=== PATIENT | male | born 1945 | race Caucasian/White ===

== ENCOUNTER → 2021-10-24 08:55 | Outpatient (BNVA) | payer SELFPAY | PROVIDERS: PCP Family Medicine; Visit Provider Internal Medicine | DX: I48.0 Paroxysmal atrial fibrillation (principal); Z51.81 Encounter for therapeutic drug level monitoring; Z79.01 Long term (current) use of anticoagulants | CPT/HCPCS: 85610; 99202 ==

== ENCOUNTER → 2021-11-07 08:50 | Outpatient (BNVA) | payer MEDICARE, SELFPAY | PROVIDERS: PCP Family Medicine; Visit Provider Internal Medicine | DX: I48.19 Other persistent atrial fibrillation (principal); Z51.81 Encounter for therapeutic drug level monitoring; Z79.01 Long term (current) use of anticoagulants | CPT/HCPCS: 85610; 99211 ==

== ENCOUNTER → 2021-11-21 08:09 | Outpatient (BNVA) | payer MEDICARE, SELFPAY | PROVIDERS: PCP Family Medicine; Visit Provider Internal Medicine | DX: I48.19 Other persistent atrial fibrillation (principal); Z51.81 Encounter for therapeutic drug level monitoring; Z79.01 Long term (current) use of anticoagulants | CPT/HCPCS: 85610; 99211 ==

== ENCOUNTER → 2021-12-14 08:15 | Outpatient (BNVA) | payer MEDICARE, SELFPAY | PROVIDERS: PCP Family Medicine; Visit Provider Internal Medicine | DX: I48.19 Other persistent atrial fibrillation (principal); Z51.81 Encounter for therapeutic drug level monitoring; Z79.01 Long term (current) use of anticoagulants | CPT/HCPCS: 85610; 99211 ==

== ENCOUNTER → 2022-01-09 08:14 | Outpatient (BNVA) | payer MEDICARE, SELFPAY | PROVIDERS: PCP Family Medicine; Visit Provider Internal Medicine | DX: I48.19 Other persistent atrial fibrillation (principal); Z51.81 Encounter for therapeutic drug level monitoring; Z79.01 Long term (current) use of anticoagulants | CPT/HCPCS: 85610; 99211 ==

== ENCOUNTER → 2022-02-06 08:03 | Outpatient (BNVA) | payer MEDICARE, SELFPAY | PROVIDERS: PCP Family Medicine; Visit Provider Internal Medicine | DX: I48.0 Paroxysmal atrial fibrillation (principal); Z51.81 Encounter for therapeutic drug level monitoring; Z79.01 Long term (current) use of anticoagulants | CPT/HCPCS: 85610; 99211 ==

== ENCOUNTER → 2022-03-06 09:00 | Outpatient (BNVA) | payer MEDICARE, SELFPAY | PROVIDERS: PCP Family Medicine; Visit Provider Internal Medicine | DX: I48.0 Paroxysmal atrial fibrillation (principal); Z79.01 Long term (current) use of anticoagulants; Z51.81 Encounter for therapeutic drug level monitoring | CPT/HCPCS: 85610; 99211 ==

== ENCOUNTER → 2022-03-20 08:13 | Outpatient (BNVA) | payer MEDICARE, SELFPAY | PROVIDERS: PCP Family Medicine; Visit Provider Internal Medicine | DX: I48.0 Paroxysmal atrial fibrillation (principal); Z95.810 Presence of automatic (implantable) cardiac defibrillator; Z79.01 Long term (current) use of anticoagulants; Z51.81 Encounter for therapeutic drug level monitoring | CPT/HCPCS: 85610; 99211 ==

== ENCOUNTER → 2022-04-03 09:03 | Outpatient (BNVA) | payer MEDICARE, SELFPAY | PROVIDERS: PCP Family Medicine; Visit Provider Internal Medicine | DX: I48.0 Paroxysmal atrial fibrillation (principal); Z95.810 Presence of automatic (implantable) cardiac defibrillator; Z79.01 Long term (current) use of anticoagulants; Z51.81 Encounter for therapeutic drug level monitoring | CPT/HCPCS: 85610; 99211 ==

== ENCOUNTER → 2022-04-24 08:06 | Outpatient (BNVA) | payer MEDICARE, SELFPAY | PROVIDERS: PCP Family Medicine; Visit Provider Internal Medicine | DX: I48.0 Paroxysmal atrial fibrillation (principal); Z79.01 Long term (current) use of anticoagulants; Z51.81 Encounter for therapeutic drug level monitoring | CPT/HCPCS: 85610; 99211 ==

== ENCOUNTER → 2022-05-15 08:08 | Outpatient (BNVA) | payer MEDICARE, SELFPAY | PROVIDERS: PCP Family Medicine; Visit Provider Internal Medicine | DX: I48.0 Paroxysmal atrial fibrillation (principal); Z79.01 Long term (current) use of anticoagulants; Z51.81 Encounter for therapeutic drug level monitoring | CPT/HCPCS: 85610; 99211 ==

== ENCOUNTER → 2022-06-14 08:17 | Outpatient (BNVA) | payer MEDICARE, SELFPAY | PROVIDERS: PCP Family Medicine; Visit Provider Internal Medicine | DX: I48.0 Paroxysmal atrial fibrillation (principal); Z51.81 Encounter for therapeutic drug level monitoring; Z79.01 Long term (current) use of anticoagulants | CPT/HCPCS: 85610; 99211 ==

== ENCOUNTER → 2022-06-25 09:59 | Outpatient (BNVA) | payer MEDICARE, SELFPAY | PROVIDERS: PCP Family Medicine; Visit Provider Internal Medicine | DX: I48.0 Paroxysmal atrial fibrillation (principal); Z79.01 Long term (current) use of anticoagulants; Z51.81 Encounter for therapeutic drug level monitoring | CPT/HCPCS: 85610; 99211 ==

== ENCOUNTER → 2022-07-10 08:28 | Outpatient (BNVA) | payer MEDICARE, SELFPAY | PROVIDERS: PCP Family Medicine; Visit Provider Internal Medicine | DX: I48.20 Chronic atrial fibrillation, unspecified (principal); Z51.81 Encounter for therapeutic drug level monitoring; Z79.01 Long term (current) use of anticoagulants | CPT/HCPCS: 85610; 99211 ==

== ENCOUNTER → 2022-07-24 08:02 | Outpatient (BNVA) | payer MEDICARE, SELFPAY | PROVIDERS: PCP Family Medicine; Visit Provider Internal Medicine | DX: I48.0 Paroxysmal atrial fibrillation (principal); Z79.01 Long term (current) use of anticoagulants; Z51.81 Encounter for therapeutic drug level monitoring | CPT/HCPCS: 85610; 99211 ==

== ENCOUNTER → 2022-08-07 09:06 | Outpatient (BNVA) | payer MEDICARE, SELFPAY | PROVIDERS: PCP Family Medicine; Visit Provider Internal Medicine | DX: I48.0 Paroxysmal atrial fibrillation (principal); Z51.81 Encounter for therapeutic drug level monitoring; Z79.01 Long term (current) use of anticoagulants | CPT/HCPCS: 85610; 99211 ==

== ENCOUNTER → 2022-08-21 08:45 | Outpatient (BNVA) | payer MEDICARE, SELFPAY | PROVIDERS: PCP Family Medicine; Visit Provider Internal Medicine | DX: I48.0 Paroxysmal atrial fibrillation (principal); Z79.01 Long term (current) use of anticoagulants; Z51.81 Encounter for therapeutic drug level monitoring | CPT/HCPCS: 85610; 99211 ==

== ENCOUNTER → 2022-09-11 08:33 | Outpatient (BNVA) | payer MEDICARE, SELFPAY | PROVIDERS: PCP Family Medicine; Visit Provider Internal Medicine | DX: I48.0 Paroxysmal atrial fibrillation (principal); Z79.01 Long term (current) use of anticoagulants; Z51.81 Encounter for therapeutic drug level monitoring | CPT/HCPCS: 85610; 99211 ==

== ENCOUNTER → 2022-09-25 08:01 | Outpatient (BNVA) | payer MEDICARE, SELFPAY | PROVIDERS: PCP Family Medicine; Visit Provider Internal Medicine | DX: I48.91 Unspecified atrial fibrillation (principal); Z79.01 Long term (current) use of anticoagulants; Z51.81 Encounter for therapeutic drug level monitoring | CPT/HCPCS: 85610; 99211 ==

== ENCOUNTER → 2022-10-16 11:46 | Outpatient (BNVA) | payer MEDICARE, SELFPAY | PROVIDERS: PCP Family Medicine; Visit Provider Internal Medicine | DX: I48.91 Unspecified atrial fibrillation (principal); Z79.01 Long term (current) use of anticoagulants; Z51.81 Encounter for therapeutic drug level monitoring | CPT/HCPCS: 85610; 99211 ==

== ENCOUNTER → 2022-10-30 08:15 | Outpatient (BNVA) | payer MEDICARE, SELFPAY | PROVIDERS: PCP Family Medicine; Visit Provider Internal Medicine | DX: I48.91 Unspecified atrial fibrillation (principal); Z79.01 Long term (current) use of anticoagulants; Z51.81 Encounter for therapeutic drug level monitoring | CPT/HCPCS: 85610; 99211 ==

== ENCOUNTER → 2022-11-30 08:15 | Outpatient (BNVA) | payer MEDICARE, SELFPAY | PROVIDERS: PCP Family Medicine; Visit Provider Internal Medicine | DX: I48.91 Unspecified atrial fibrillation (principal); Z79.01 Long term (current) use of anticoagulants; Z51.81 Encounter for therapeutic drug level monitoring | CPT/HCPCS: 85610; 99211 ==

== ENCOUNTER → 2022-12-14 08:02 | Outpatient (BNVA) | payer MEDICARE, SELFPAY | PROVIDERS: PCP Family Medicine; Visit Provider Internal Medicine | DX: I48.91 Unspecified atrial fibrillation (principal); Z79.01 Long term (current) use of anticoagulants; Z51.81 Encounter for therapeutic drug level monitoring | CPT/HCPCS: 85610; 99211 ==

== ENCOUNTER → 2023-01-10 08:59 | Outpatient (BNVA) | payer MEDICARE, SELFPAY | PROVIDERS: PCP Family Medicine; Visit Provider Internal Medicine | DX: I48.91 Unspecified atrial fibrillation (principal); Z79.01 Long term (current) use of anticoagulants; Z51.81 Encounter for therapeutic drug level monitoring | CPT/HCPCS: 85610; 99211 ==

== ENCOUNTER → 2023-01-24 14:45 | Outpatient (BNVA) | payer MEDICARE, SELFPAY | PROVIDERS: PCP Family Medicine; Visit Provider Internal Medicine | DX: I48.91 Unspecified atrial fibrillation (principal); Z79.01 Long term (current) use of anticoagulants; Z51.81 Encounter for therapeutic drug level monitoring | CPT/HCPCS: 85610; 99211 ==

== ENCOUNTER → 2023-02-07 14:10 | Outpatient (BNVA) | payer MEDICARE, SELFPAY | PROVIDERS: PCP Family Medicine; Visit Provider Internal Medicine | DX: I48.91 Unspecified atrial fibrillation (principal); Z79.01 Long term (current) use of anticoagulants; Z51.81 Encounter for therapeutic drug level monitoring | CPT/HCPCS: 85610; 99211 ==

== ENCOUNTER → 2023-02-14 08:28 | Outpatient (BNVA) | payer MEDICARE, SELFPAY | PROVIDERS: PCP Family Medicine; Visit Provider Internal Medicine | DX: I48.91 Unspecified atrial fibrillation (principal); Z79.01 Long term (current) use of anticoagulants; Z51.81 Encounter for therapeutic drug level monitoring | CPT/HCPCS: 85610; 99211 ==

== ENCOUNTER → 2023-02-28 08:19 | Outpatient (BNVA) | payer MEDICARE, SELFPAY | PROVIDERS: PCP Family Medicine; Visit Provider Internal Medicine | DX: I48.91 Unspecified atrial fibrillation (principal); Z51.81 Encounter for therapeutic drug level monitoring; Z79.01 Long term (current) use of anticoagulants | CPT/HCPCS: 85610; 99211 ==

== ENCOUNTER → 2023-03-21 13:06 | Outpatient (BNVA) | payer MEDICARE, SELFPAY | PROVIDERS: PCP Family Medicine; Visit Provider Internal Medicine | DX: I48.91 Unspecified atrial fibrillation (principal); Z79.01 Long term (current) use of anticoagulants; Z51.81 Encounter for therapeutic drug level monitoring | CPT/HCPCS: 85610; 99211 ==

== ENCOUNTER → 2023-04-04 08:08 | Outpatient (BNVA) | payer MEDICARE, SELFPAY | PROVIDERS: PCP Family Medicine; Visit Provider Internal Medicine | DX: I48.91 Unspecified atrial fibrillation (principal); Z79.01 Long term (current) use of anticoagulants; Z51.81 Encounter for therapeutic drug level monitoring | CPT/HCPCS: 85610; 99211 ==

== ENCOUNTER → 2023-04-25 13:06 | Outpatient (BNVA) | payer MEDICARE, SELFPAY | PROVIDERS: PCP Family Medicine; Visit Provider Internal Medicine | DX: I48.91 Unspecified atrial fibrillation (principal); Z79.01 Long term (current) use of anticoagulants; Z51.81 Encounter for therapeutic drug level monitoring | CPT/HCPCS: 85610; 99211 ==

== ENCOUNTER → 2023-05-17 08:17 | Outpatient (BNVA) | payer MEDICARE, SELFPAY | PROVIDERS: PCP Family Medicine; Visit Provider Internal Medicine | DX: I48.91 Unspecified atrial fibrillation (principal); Z79.01 Long term (current) use of anticoagulants; Z51.81 Encounter for therapeutic drug level monitoring | CPT/HCPCS: 85610; 99211 ==

== ENCOUNTER 2023-06-11 13:32 | Outpatient (AMB) | payer MEDICARE, SELFPAY ==
[2023-06-11 13:44] LABS: Prothrombin Time Whole Bld POC 36.2 sec (11.1-13.5)
--- NOTE | 2023-06-11 13:49 | MHC.OFFVISCO ---
Intake Intake Visit Reasons: Anticoagulation Allergies diltiazem [From Cardizem] Allergy (Intermediate, Verified 06/11/23 13:38) rash Medication List - Last Reconciled 06/11/23 by Maddison Summers RN aspirin 81 mg PO DAILY atorvastatin 80 mg PO DAILY carvedilol 25MG 2 TABS PO 2 times a day; must administer with a meal/food cholecalciferol (vitamin D3) 50 mcg PO DAILY multivitamin 1 tab PO DAILY [OCUVITE PO DAILY] oxycodone 5 mg PO Q4H PRN warfarin 5 mg See Protocol PO DAILY Nursing Note Amb to [facility] feeling well, missed appt last Saturday as he was traveling from [place] home, reminded regarding no call no show policy and to please call us if needs to R/S visit Medications and supplements reviewed No changes in health, diet, medications, or supplements Denies any unusual signs and symptoms of bruising, bleeding Denies any new Chest pain, SOB, or clotting INR: 3.0 top of therapeutic range Nutritional guidance given: balance greens and reds in diet Dose: continue usual dosing;5mg daily F/U INR: 4 weeks Patient verbalizes understanding of instructions given with accurate read back/ teach back of dosing Anti-Coag Initial Assessment Social Hx Patient Tobacco Use Status: Former Tobacco user Tobacco use type: Cigar and Pipe alcohol intake: former Alcohol intake frequency: does not drink Cardiovascular Hx: CAD and Arrhythmias Musculoskeletal Hx: Arthritis Blood Disorder Hx: Hyperlipidemia GI Hx: Diverticulosis Cancer HX: No Psych. Illness/Depression: No Coding Level of Care Code Est Patient Level 1 Diagnoses Current use of anticoagulant therapy Z79.01 Time Spent (min) 15 Assessment & Plan Assessment & Plan (1) Current use of anticoagulant therapy: Code(s): Z79.01 - residential (current) use of anticoagulants Category: Medical
== END 2023-06-11 13:52 | disposition home or self-care (01) ==
LOC: HO.ACS 13:32
PROVIDERS: PCP Family Medicine; Visit Provider Internal Medicine
DX: Z79.01 Long term (current) use of anticoagulants (principal)

== ENCOUNTER → 2023-06-11 13:32 | Outpatient (BNVA) | payer MEDICARE, SELFPAY | PROVIDERS: PCP Family Medicine; Visit Provider Internal Medicine | DX: I48.91 Unspecified atrial fibrillation (principal); Z51.81 Encounter for therapeutic drug level monitoring; Z79.01 Long term (current) use of anticoagulants | CPT/HCPCS: 85610; 99211 ==

== ENCOUNTER 2023-07-09 08:01 | Outpatient (AMB) | payer MEDICARE, SELFPAY ==
[2023-07-09 08:07] LABS: ~PT, ~INR - Anti Coag Clinic 3.5 (0.9-1.1)
--- NOTE | 2023-07-09 08:14 | MHC.OFFVISCO ---
Intake Intake Visit Reasons: Anticoagulation Allergies diltiazem [From Cardizem] Allergy (Intermediate, Verified 07/09/23 08:02) rash Medication List - Last Reconciled 07/09/23 by Farida Ramirez RN aspirin 81 mg PO DAILY atorvastatin 80 mg PO DAILY carvedilol 25MG 2 TABS PO 2 times a day; must administer with a meal/food cholecalciferol (vitamin D3) 50 mcg PO DAILY multivitamin 1 tab PO DAILY [OCUVITE PO DAILY] oxycodone 5 mg PO Q4H PRN warfarin 5 mg See Protocol PO DAILY Nursing Note NO CP,SOB,DIET/MED CHANGES,FALLS OR SX OF BLEEDING. HOLD WARFARIN TODAY THEN RESUME 5MGM DAILY AND FOLLOW-UP IN WEEKS. GOOD UNDERSTANDING OF DOSING INSTR Anti-Coag Initial Assessment Social Hx Patient Tobacco Use Status: Former Tobacco user Tobacco use type: Cigar and Pipe alcohol intake: former Alcohol intake frequency: does not drink Cardiovascular Hx: CAD and Arrhythmias Musculoskeletal Hx: Arthritis Blood Disorder Hx: Hyperlipidemia GI Hx: Diverticulosis Cancer HX: No Psych. Illness/Depression: No Coding Level of Care Code Est Patient Level 1 Diagnoses Current use of anticoagulant therapy Z79.01 Assessment & Plan Assessment & Plan (1) Current use of anticoagulant therapy: Code(s): Z79.01 - retirement (current) use of anticoagulants Category: Medical
== END 2023-07-09 08:16 | disposition home or self-care (01) ==
LOC: HO.ACS 08:01
PROVIDERS: PCP Family Medicine; Visit Provider Internal Medicine
DX: Z79.01 Long term (current) use of anticoagulants (principal)

== ENCOUNTER → 2023-07-09 08:01 | Outpatient (BNVA) | payer MEDICARE, SELFPAY | PROVIDERS: PCP Family Medicine; Visit Provider Internal Medicine | DX: I48.91 Unspecified atrial fibrillation (principal); Z79.01 Long term (current) use of anticoagulants; Z51.81 Encounter for therapeutic drug level monitoring | CPT/HCPCS: 85610; 99211 ==

== ENCOUNTER 2023-07-23 08:30 | Outpatient (AMB) | payer MEDICARE, SELFPAY ==
--- NOTE | 2023-07-23 08:40 | MHC.OFFVISCO ---
Intake Intake Visit Reasons: Anticoagulation Allergies diltiazem [From Cardizem] Allergy (Intermediate, Verified 07/23/23 08:36) rash Medication List - Last Reconciled 07/23/23 by Aleta Weber RN aspirin 81 mg PO DAILY atorvastatin 80 mg PO DAILY carvedilol 25MG 2 TABS PO 2 times a day; must administer with a meal/food cholecalciferol (vitamin D3) 50 mcg PO DAILY multivitamin 1 tab PO DAILY [OCUVITE PO DAILY] oxycodone 5 mg PO Q4H PRN warfarin 5 mg See Protocol PO DAILY Nursing Note INR: 2.5- in therapeutic range Medications and supplements reviewed No changes in health, diet, medications, or supplements, Denies any signs and symptoms of bleeding or bruising or clotting. Bleeding, bruising, clotting discussed Nutritional guidance given Dose: 5mg x 7 F/U INR: 2 weeks Patient verbalizes understanding of instructions given Anti-Coag Initial Assessment Social Hx Patient Tobacco Use Status: Former Tobacco user Tobacco use type: Cigar and Pipe alcohol intake: former Alcohol intake frequency: does not drink Cardiovascular Hx: CAD and Arrhythmias Musculoskeletal Hx: Arthritis Blood Disorder Hx: Hyperlipidemia GI Hx: Diverticulosis Cancer HX: No Psych. 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
[2023-07-23 08:42] LABS: Prothrombin Time Whole Bld POC 29.7 sec (11.1-13.5); ~PT, ~INR - Anti Coag Clinic 2.5 (0.9-1.1)
== END 2023-07-23 08:53 | disposition home or self-care (01) ==
LOC: HO.ACS 08:30
PROVIDERS: PCP Family Medicine; Visit Provider Internal Medicine
DX: Z79.01 Long term (current) use of anticoagulants (principal)

== ENCOUNTER → 2023-07-23 08:30 | Outpatient (BNVA) | payer MEDICARE, SELFPAY | PROVIDERS: PCP Family Medicine; Visit Provider Internal Medicine | DX: I48.91 Unspecified atrial fibrillation (principal); Z79.01 Long term (current) use of anticoagulants; Z51.81 Encounter for therapeutic drug level monitoring | CPT/HCPCS: 85610; 99211 ==

== ENCOUNTER 2023-08-06 09:10 | Outpatient (AMB) | payer MEDICARE, SELFPAY ==
--- NOTE | 2023-08-06 09:25 | MHC.OFFVISCO ---
Intake Intake Visit Reasons: Anticoagulation Allergies diltiazem [From Cardizem] Allergy (Intermediate, Verified 08/06/23 09:18) rash Medication List - Last Reconciled 08/06/23 by Aleta Weber RN aspirin 81 mg PO DAILY atorvastatin 80 mg PO DAILY carvedilol 25MG 2 TABS PO 2 times a day; must administer with a meal/food cholecalciferol (vitamin D3) 50 mcg PO DAILY multivitamin 1 tab PO DAILY [OCUVITE PO DAILY] oxycodone 5 mg PO Q4H PRN warfarin 5 mg See Protocol PO DAILY Nursing Note INR 3.6-? out of therapeutic range Medications and supplements reviewed Patient status: pt with small cut on finger, small amount of bleeding, cleaned and band aid applied Medications or supplements: no changes Diet: has had more reds Denies any signs and symptoms of bleeding or clotting or unusual bruising Bleeding, bruising, clotting discussed Nutritional guidance given: eat dark greens today and tomm, no reds for 2 days Dose: 2.5mg today then cont reg dosing 5mg x 7 F/U INR Date : 2 weeks? Patient verbalizing understanding of instructions given. Anti-Coag Initial Assessment Social Hx Patient Tobacco Use Status: Former Tobacco user Tobacco use type: Cigar and Pipe alcohol intake: former Alcohol intake frequency: does not drink Cardiovascular Hx: CAD and Arrhythmias Musculoskeletal Hx: Arthritis Blood Disorder Hx: Hyperlipidemia GI Hx: Diverticulosis Cancer HX: No Psych. 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
[2023-08-06 09:27] LABS: Prothrombin Time Whole Bld POC 42.9 sec (11.1-13.5); ~PT, ~INR - Anti Coag Clinic 3.6 (0.9-1.1)
== END 2023-08-06 09:30 | disposition home or self-care (01) ==
LOC: HO.ACS 09:10
PROVIDERS: PCP Family Medicine; Visit Provider Internal Medicine
DX: Z79.01 Long term (current) use of anticoagulants (principal)

== ENCOUNTER → 2023-08-06 09:10 | Outpatient (BNVA) | payer MEDICARE, SELFPAY | PROVIDERS: PCP Family Medicine; Visit Provider Internal Medicine | DX: I48.91 Unspecified atrial fibrillation (principal); Z79.01 Long term (current) use of anticoagulants; Z51.81 Encounter for therapeutic drug level monitoring | CPT/HCPCS: 85610; 99211 ==

== ENCOUNTER 2023-08-20 13:03 | Outpatient (AMB) | payer MEDICARE, SELFPAY ==
--- NOTE | 2023-08-20 13:25 | MHC.OFFVISCO ---
Intake Intake Visit Reasons: Anticoagulation Allergies diltiazem [From Cardizem] Allergy (Intermediate, Verified 08/20/23 13:22) rash Medication List - Last Reconciled 08/20/23 by Aleta Weber RN aspirin 81 mg PO DAILY atorvastatin 80 mg PO DAILY carvedilol 25MG 2 TABS PO 2 times a day; must administer with a meal/food cholecalciferol (vitamin D3) 50 mcg PO DAILY multivitamin 1 tab PO DAILY [OCUVITE PO DAILY] oxycodone 5 mg PO Q4H PRN warfarin 5 mg See Protocol PO DAILY Nursing Note INR: 2.9- in therapeutic range Medications and supplements reviewed- no changes No changes in health, diet, medications, or supplements, Denies any signs and symptoms of bleeding or bruising or clotting. Bleeding, bruising, clotting discussed Nutritional guidance given Dose: 5mg x 7 F/U INR: 2 weeks Patient verbalizes understanding of instructions given Anti-Coag Initial Assessment Social Hx Patient Tobacco Use Status: Former Tobacco user Tobacco use type: Cigar and Pipe alcohol intake: former Alcohol intake frequency: does not drink Cardiovascular Hx: CAD and Arrhythmias Musculoskeletal Hx: Arthritis Blood Disorder Hx: Hyperlipidemia GI Hx: Diverticulosis Cancer HX: No Psych. 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
[2023-08-20 13:26] LABS: Prothrombin Time Whole Bld POC 34.9 sec (11.1-13.5); ~PT, ~INR - Anti Coag Clinic 2.9 (0.9-1.1)
== END 2023-08-20 13:29 | disposition home or self-care (01) ==
LOC: HO.ACS 13:03
PROVIDERS: PCP Family Medicine; Visit Provider Internal Medicine
DX: Z79.01 Long term (current) use of anticoagulants (principal)

== ENCOUNTER → 2023-08-20 13:03 | Outpatient (BNVA) | payer MEDICARE, SELFPAY | PROVIDERS: PCP Family Medicine; Visit Provider Internal Medicine | DX: I48.91 Unspecified atrial fibrillation (principal); Z51.81 Encounter for therapeutic drug level monitoring; Z79.01 Long term (current) use of anticoagulants | CPT/HCPCS: 85610; 99211 ==

== ENCOUNTER 2023-09-03 09:02 | Outpatient (AMB) | payer MEDICARE, SELFPAY ==
[2023-09-03 09:15] LABS: Prothrombin Time Whole Bld POC 27.9 sec (11.1-13.5); ~PT, ~INR - Anti Coag Clinic 2.3 (0.9-1.1)
--- NOTE | 2023-09-03 09:18 | MHC.OFFVISCO ---
Intake Intake Visit Reasons: Anticoagulation Allergies diltiazem [From Cardizem] Allergy (Intermediate, Verified 09/03/23 09:09) rash Medication List - Last Reconciled 09/03/23 by Lor Florence RN aspirin 81 mg PO DAILY atorvastatin 80 mg PO DAILY carvedilol 25MG 2 TABS PO 2 times a day; must administer with a meal/food cholecalciferol (vitamin D3) 50 mcg PO DAILY metronidazole 0.75% appl topical DAILY multivitamin 1 tab PO DAILY [OCUVITE PO DAILY] oxycodone 5 mg PO Q4H PRN peg 3350-electrolytes 236-22.74-6.74 -5.86 gram (GaviLyte-G) mL PO warfarin 5 mg See Protocol PO DAILY Nursing Note INR: 2.3 in therapeutic range Medications and supplements reviewed Had 3 vaccines Flu RSV and covid No changes in health, diet, medications, or supplements, Denies any signs and symptoms of bleeding or bruising or clotting. Bleeding, bruising, clotting discussed Nutritional guidance given Dose: 5mg daily F/U INR: Sep 26 after traveling Patient verbalizes understanding of instructions given Anti-Coag Initial Assessment Social Hx Patient Tobacco Use Status: Former Tobacco user Tobacco use type: Cigar and Pipe alcohol intake: former Alcohol intake frequency: does not drink Cardiovascular Hx: CAD and Arrhythmias Musculoskeletal Hx: Arthritis Blood Disorder Hx: Hyperlipidemia GI Hx: Diverticulosis Cancer HX: No Psych. Illness/Depression: No Coding Level of Care Code Est Patient Level 1 Diagnoses Current use of anticoagulant therapy Z79.01 Assessment & Plan Assessment & Plan (1) Current use of anticoagulant therapy: Code(s): Z79.01 - residential (current) use of anticoagulants Category: Medical
== END 2023-09-03 09:23 | disposition home or self-care (01) ==
LOC: HO.ACS 09:02
PROVIDERS: PCP Family Medicine; Visit Provider Internal Medicine
DX: Z79.01 Long term (current) use of anticoagulants (principal)

== ENCOUNTER → 2023-09-03 09:02 | Outpatient (BNVA) | payer MEDICARE, SELFPAY | PROVIDERS: PCP Family Medicine; Visit Provider Internal Medicine | DX: I48.91 Unspecified atrial fibrillation (principal); Z79.01 Long term (current) use of anticoagulants; Z51.81 Encounter for therapeutic drug level monitoring | CPT/HCPCS: 85610; 99211 ==

== ENCOUNTER 2023-09-27 13:55 | Outpatient (AMB) | payer MEDICARE, SELFPAY ==
--- NOTE | 2023-09-27 14:02 | MHC.OFFVISCO ---
Intake Intake Visit Reasons: Anticoagulation Allergies diltiazem [From Cardizem] Allergy (Intermediate, Verified 09/27/23 13:57) rash Medication List - Last Reconciled 09/27/23 by Aleta Weber RN aspirin 81 mg PO DAILY atorvastatin 80 mg PO DAILY carvedilol 25MG 2 TABS PO 2 times a day; must administer with a meal/food cholecalciferol (vitamin D3) 50 mcg PO DAILY metronidazole 0.75% appl topical DAILY multivitamin 1 tab PO DAILY [OCUVITE PO DAILY] oxycodone 5 mg PO Q4H PRN peg 3350-electrolytes 236-22.74-6.74 -5.86 gram (GaviLyte-G) mL PO warfarin 5 mg See Protocol PO DAILY Nursing Note INR: 2.6- in therapeutic range of 2-3 Medications and supplements reviewed- no changes No changes in health, diet, medications, or supplements, Denies any signs and symptoms of bleeding or bruising or clotting. Bleeding, bruising, clotting discussed Nutritional guidance given Dose: 5mg x 7 F/U INR: pt req 3 week Patient verbalizes understanding of instructions given [facility] Anti-Coag Initial Assessment Social Hx Patient Tobacco Use Status: Former Tobacco user Tobacco use type: Cigar and Pipe alcohol intake: former Alcohol intake frequency: does not drink Cardiovascular Hx: CAD and Arrhythmias Musculoskeletal Hx: Arthritis Blood Disorder Hx: Hyperlipidemia GI Hx: Diverticulosis Cancer HX: No Psych. 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
[2023-09-27 14:03] LABS: Prothrombin Time Whole Bld POC 31.5 sec (11.1-13.5); ~PT, ~INR - Anti Coag Clinic 2.6 (0.9-1.1)
== END 2023-09-27 14:08 | disposition home or self-care (01) ==
LOC: HO.ACS 13:55
PROVIDERS: PCP Family Medicine; Visit Provider Internal Medicine
DX: Z79.01 Long term (current) use of anticoagulants (principal)

== ENCOUNTER → 2023-09-27 13:55 | Outpatient (BNVA) | payer MEDICARE, SELFPAY | PROVIDERS: PCP Family Medicine; Visit Provider Internal Medicine | DX: I48.0 Paroxysmal atrial fibrillation (principal); Z79.01 Long term (current) use of anticoagulants; Z51.81 Encounter for therapeutic drug level monitoring | CPT/HCPCS: 85610; 99211 ==

== ENCOUNTER 2023-10-28 13:22 | Outpatient (AMB) | payer MEDICARE, SELFPAY ==
--- NOTE | 2023-10-28 13:27 | MHC.OFFVISCO ---
Intake Intake Visit Reasons: Anticoagulation Allergies diltiazem [From Cardizem] Allergy (Intermediate, Verified 10/28/23 13:24) rash Medication List - Last Reconciled 10/28/23 by Aleta Weber RN aspirin 81 mg PO DAILY atorvastatin 80 mg PO DAILY carvedilol 25MG 2 TABS PO 2 times a day; must administer with a meal/food cholecalciferol (vitamin D3) 50 mcg PO DAILY metronidazole 0.75% appl topical DAILY multivitamin 1 tab PO DAILY [OCUVITE PO DAILY] oxycodone 5 mg PO Q4H PRN peg 3350-electrolytes 236-22.74-6.74 -5.86 gram (GaviLyte-G) mL PO warfarin 5 mg See Protocol PO DAILY Nursing Note INR: 2.4- in therapeutic range of 2-3 Medications and supplements reviewed No changes in health, diet, medications, or supplements, Denies any signs and symptoms of bleeding or bruising or clotting. Bleeding, bruising, clotting discussed Nutritional guidance given Dose: 5mg x 7 F/U INR: 3 weeks Patient verbalizes understanding of instructions given pt with c.o back pain, does exercises and takes tylenol prn Anti-Coag Initial Assessment Social Hx Patient Tobacco Use Status: Former Tobacco user Tobacco use type: Cigar and Pipe alcohol intake: former Alcohol intake frequency: does not drink Cardiovascular Hx: CAD and Arrhythmias Musculoskeletal Hx: Arthritis Blood Disorder Hx: Hyperlipidemia GI Hx: Diverticulosis Cancer HX: No Psych. 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
[2023-10-28 13:28] LABS: ~PT, ~INR - Anti Coag Clinic 2.4 (0.9-1.1)
== END 2023-10-28 13:32 | disposition home or self-care (01) ==
LOC: HO.ACS 13:22
PROVIDERS: PCP Family Medicine; Visit Provider Internal Medicine
DX: Z79.01 Long term (current) use of anticoagulants (principal)

== ENCOUNTER → 2023-10-28 13:22 | Outpatient (BNVA) | payer MEDICARE, SELFPAY | PROVIDERS: PCP Family Medicine; Visit Provider Internal Medicine | DX: I48.0 Paroxysmal atrial fibrillation (principal); Z79.01 Long term (current) use of anticoagulants; Z51.81 Encounter for therapeutic drug level monitoring | CPT/HCPCS: 85610; 99211 ==

== ENCOUNTER 2023-11-19 13:07 | Outpatient (AMB) | payer MEDICARE, SELFPAY ==
--- NOTE | 2023-11-19 13:30 | MHC.OFFVISCO ---
Intake Intake Visit Reasons: Anticoagulation Allergies diltiazem [From Cardizem] Allergy (Intermediate, Verified 11/19/23 13:23) rash Medication List - Last Reconciled 11/19/23 by Aleta Weber RN aspirin 81 mg PO DAILY atorvastatin 80 mg PO DAILY carvedilol 25MG 2 TABS PO 2 times a day; must administer with a meal/food cholecalciferol (vitamin D3) 50 mcg PO DAILY metronidazole 0.75% appl topical DAILY multivitamin 1 tab PO DAILY [OCUVITE PO DAILY] oxycodone 5 mg PO Q4H PRN peg 3350-electrolytes 236-22.74-6.74 -5.86 gram (GaviLyte-G) mL PO warfarin 5 mg See Protocol PO DAILY Nursing Note INR: 2.3- in therapeutic range of 2-3 Medications and supplements reviewed- no changes No changes in health, diet, medications, or supplements, Denies any signs and symptoms of bleeding or bruising or clotting. Bleeding, bruising, clotting discussed Nutritional guidance given Dose: 5mg x 7 F/U INR: 3 weeks Patient verbalizes understanding of instructions given pt states upcoming colonoscopy on 12/16/23- will check with pcp or cardiology regarding warfarin hold, ? lovenox Anti-Coag Initial Assessment Social Hx Patient Tobacco Use Status: Former Tobacco user Tobacco use type: Cigar and Pipe alcohol intake: former Alcohol intake frequency: does not drink Cardiovascular Hx: CAD and Arrhythmias Musculoskeletal Hx: Arthritis Blood Disorder Hx: Hyperlipidemia GI Hx: Diverticulosis Cancer HX: No Psych. Illness/Depression: No Coding Level of Care Code Est Patient Level 1 Diagnoses Current use of anticoagulant therapy Z79.01 Results AMB INR Fingerstick AMB INR Fingerstick 2.3 Last Edit by Aleta Weber RN on 11/19/23 13:32 Assessment & Plan Assessment & Plan (1) Current use of anticoagulant therapy: Code(s): Z79.01 - retirement (current) use of anticoagulants Category: Medical
[2023-11-19 13:31] LABS: Prothrombin Time Whole Bld POC 27.6 sec (11.1-13.5); ~PT, ~INR - Anti Coag Clinic 2.3 (0.9-1.1)
== END 2023-11-19 14:08 | disposition home or self-care (01) ==
LOC: HO.ACS 13:07
PROVIDERS: PCP Family Medicine; Visit Provider Internal Medicine
DX: Z79.01 Long term (current) use of anticoagulants (principal)

== ENCOUNTER → 2023-11-19 13:07 | Outpatient (BNVA) | payer MEDICARE, SELFPAY | PROVIDERS: PCP Family Medicine; Visit Provider Internal Medicine | DX: I48.0 Paroxysmal atrial fibrillation (principal); Z51.81 Encounter for therapeutic drug level monitoring; Z79.01 Long term (current) use of anticoagulants | CPT/HCPCS: 85610; 99211 ==

== ENCOUNTER 2023-12-09 13:13 | Outpatient (AMB) | payer MEDICARE, SELFPAY ==
[2023-12-09 13:34] LABS: Prothrombin Time Whole Bld POC 32.6 sec (11.1-13.5); ~PT, ~INR - Anti Coag Clinic 2.7 (0.9-1.1)
--- NOTE | 2023-12-09 13:35 | MHC.OFFVISCO ---
Intake Intake Visit Reasons: Anticoagulation Allergies diltiazem [From Cardizem] Allergy (Intermediate, Verified 12/09/23 13:44) rash Nursing Note INR: 2.7- in therapeutic range of 2-3 Medications and supplements reviewed- no changes No changes in health, diet, medications, or supplements, Denies any signs and symptoms of bleeding or bruising or clotting. Bleeding, bruising, clotting discussed Nutritional guidance given Dose: 5mg daily F/U INR: saturday12/20/23 Patient verbalizes understanding of instructions given pt to have colonoscopy on 12/16/23- no instruction for hold or lovenox yet, pt attempted to contact cardiology at [facility] but they deferred to acs. pcp office called-aware of need for pre proc orders- will let acs know of days of hold for warfarin and if lovenox ordered. colonoscopy in [facility] Initial Assessment Social Hx Patient Tobacco Use Status: Former Tobacco user Tobacco use type: Cigar and Pipe alcohol intake: former Alcohol intake frequency: does not drink Cardiovascular Hx: CAD and Arrhythmias Musculoskeletal Hx: Arthritis Blood Disorder Hx: Hyperlipidemia GI Hx: Diverticulosis Cancer HX: No Psych. 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
== END 2023-12-09 13:45 | disposition home or self-care (01) ==
LOC: HO.ACS 13:13
PROVIDERS: PCP Family Medicine; Visit Provider Internal Medicine
DX: Z79.01 Long term (current) use of anticoagulants (principal)

== ENCOUNTER → 2023-12-09 13:13 | Outpatient (BNVA) | payer MEDICARE, SELFPAY | PROVIDERS: PCP Family Medicine; Visit Provider Internal Medicine | DX: I48.0 Paroxysmal atrial fibrillation (principal); Z79.01 Long term (current) use of anticoagulants; Z51.81 Encounter for therapeutic drug level monitoring | CPT/HCPCS: 85610; 99211 ==

== ENCOUNTER 2023-12-20 14:38 | Outpatient (AMB) | payer MEDICARE, SELFPAY ==
--- NOTE | 2023-12-20 14:42 | MHC.OFFVISCO ---
Intake Intake Visit Reasons: Anticoagulation Allergies diltiazem [From Cardizem] Allergy (Intermediate, Verified 12/20/23 14:39) rash Medication List - Last Reconciled 12/20/23 by Aleta Weber RN aspirin 81 mg PO DAILY atorvastatin 80 mg PO DAILY carvedilol 25MG 2 TABS PO 2 times a day; must administer with a meal/food cholecalciferol (vitamin D3) 50 mcg PO DAILY metronidazole 0.75% appl topical DAILY multivitamin 1 tab PO DAILY [OCUVITE PO DAILY] oxycodone 5 mg PO Q4H PRN warfarin 5 mg See Protocol PO DAILY Nursing Note INR 1.4-?? out of therapeutic range Medications and supplements reviewed Patient status: pt s/p colonoscopy on saturday12/16/23- one polyp five day hold of warfarin with no lovenox bridge Medications or supplements: no changes Diet: same Denies any signs and symptoms of bleeding or clotting or unusual bruising Bleeding, bruising, clotting discussed Nutritional guidance given: no greens for 2-3 days, eat reds to raise Dose: pt restarted warfarin on 12/17/23 and took 7.5mg on , then 5mg daily pt to take 7.5mg today and tomm then cont reg 5mg x 7 F/U INR Date : 12/24/23? Patient verbalizing understanding of instructions given. pcp office called- dr english to report low inr/dosing and f/u appt- spoke with Johana butt aware pt s/p colonoscopy with 5 day hold- will report to medical staff/pcp Anti-Coag Initial Assessment Social Hx Patient Tobacco Use Status: Former Tobacco user Tobacco use type: Cigar and Pipe alcohol intake: former Alcohol intake frequency: does not drink Cardiovascular Hx: CAD and Arrhythmias Musculoskeletal Hx: Arthritis Blood Disorder Hx: Hyperlipidemia GI Hx: Diverticulosis Cancer HX: No Psych. 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
[2023-12-20 14:44] LABS: Prothrombin Time Whole Bld POC 16.3 sec (11.1-13.5); ~PT, ~INR - Anti Coag Clinic 1.4 (0.9-1.1)
== END 2023-12-20 15:00 | disposition home or self-care (01) ==
LOC: HO.ACS 14:38
PROVIDERS: PCP Family Medicine; Visit Provider Internal Medicine
DX: Z79.01 Long term (current) use of anticoagulants (principal)

== ENCOUNTER → 2023-12-20 14:38 | Outpatient (BNVA) | payer MEDICARE, SELFPAY | PROVIDERS: PCP Family Medicine; Visit Provider Internal Medicine | DX: I48.0 Paroxysmal atrial fibrillation (principal); Z79.01 Long term (current) use of anticoagulants; Z51.81 Encounter for therapeutic drug level monitoring | CPT/HCPCS: 85610; 99211 ==

== ENCOUNTER 2023-12-24 13:54 | Outpatient (AMB) | payer MEDICARE, SELFPAY ==
[2023-12-24 14:02] LABS: Prothrombin Time Whole Bld POC 28.2 sec (11.1-13.5); ~PT, ~INR - Anti Coag Clinic 2.3 (0.9-1.1)
--- NOTE | 2023-12-24 14:04 | MHC.OFFVISCO ---
Intake Intake Visit Reasons: Anticoagulation Allergies diltiazem [From Cardizem] Allergy (Intermediate, Verified 12/24/23 13:56) rash Medication List - Last Reconciled 12/24/23 by Maddison Hernandez, CONCE[employer] aspirin 81 mg PO DAILY atorvastatin 80 mg PO DAILY carvedilol 25MG 2 TABS PO 2 times a day; must administer with a meal/food cholecalciferol (vitamin D3) 50 mcg PO DAILY metronidazole 0.75% appl topical DAILY multivitamin 1 tab PO DAILY [OCUVITE PO DAILY] warfarin 5 mg See Protocol PO DAILY Nursing Note S/P colonoscopy 12/16 INR: 2.3 in therapeutic range of 2-3 Medications and supplements reviewed No changes in health, diet, medications, or supplements, Denies any signs and symptoms of bleeding or bruising or clotting. Bleeding, bruising, clotting discussed Nutritional guidance given Dose: resume usual dose of 5mg daily F/U INR: 2 weeks Patient verbalizes understanding of instructions given Anti-Coag Initial Assessment Social Hx Patient Tobacco Use Status: Former Tobacco user Tobacco use type: Cigar and Pipe alcohol intake: former Alcohol intake frequency: does not drink Cardiovascular Hx: CAD and Arrhythmias Musculoskeletal Hx: Arthritis Blood Disorder Hx: Hyperlipidemia GI Hx: Diverticulosis Cancer HX: No Psych. Illness/Depression: No Coding Level of Care Code Est Patient Level 1 Diagnoses Current use of anticoagulant therapy Z79.01 Assessment & Plan Assessment & Plan (1) Current use of anticoagulant therapy: Code(s): Z79.01 - residential (current) use of anticoagulants Category: Medical
== END 2023-12-24 14:09 | disposition home or self-care (01) ==
LOC: HO.ACS 13:54
PROVIDERS: PCP Family Medicine; Visit Provider Internal Medicine
DX: Z79.01 Long term (current) use of anticoagulants (principal)

== ENCOUNTER → 2023-12-24 13:54 | Outpatient (BNVA) | payer MEDICARE, SELFPAY | PROVIDERS: PCP Family Medicine; Visit Provider Internal Medicine | DX: I48.0 Paroxysmal atrial fibrillation (principal); Z79.01 Long term (current) use of anticoagulants; Z51.81 Encounter for therapeutic drug level monitoring | CPT/HCPCS: 85610; 99211 ==

== ENCOUNTER 2024-01-07 13:46 | Outpatient (AMB) | payer MEDICARE, SELFPAY ==
--- NOTE | 2024-01-07 14:09 | MHC.OFFVISCO ---
Intake Intake Visit Reasons: Anticoagulation Allergies diltiazem [From Cardizem] Allergy (Intermediate, Verified 01/07/24 14:02) rash Medication List - Last Reconciled 01/07/24 by Aleta Weber RN aspirin 81 mg PO DAILY atorvastatin 80 mg PO DAILY carvedilol 25MG 2 TABS PO 2 times a day; must administer with a meal/food cholecalciferol (vitamin D3) 50 mcg PO DAILY metronidazole 0.75% appl topical DAILY multivitamin 1 tab PO DAILY [OCUVITE PO DAILY] warfarin 5 mg See Protocol PO DAILY Nursing Note INR: 2.9- in therapeutic range of 2-3 Medications and supplements reviewed- no changes No changes in health, diet, medications, or supplements, Denies any signs and symptoms of bleeding or bruising or clotting. Bleeding, bruising, clotting discussed Nutritional guidance given Dose: 5mg x 7 F/U INR: 3 weeks Patient verbalizes understanding of instructions given Anti-Coag Initial Assessment Social Hx Patient Tobacco Use Status: Former Tobacco user Tobacco use type: Cigar and Pipe alcohol intake: former Alcohol intake frequency: does not drink Cardiovascular Hx: CAD and Arrhythmias Musculoskeletal Hx: Arthritis Blood Disorder Hx: Hyperlipidemia GI Hx: Diverticulosis Cancer HX: No Psych. Illness/Depression: No Coding Level of Care Code Est Patient Level 1 Diagnoses Current use of anticoagulant therapy Z79.01 Results AMB INR Fingerstick AMB INR Fingerstick 2.9 Last Edit by Aleta Weber RN on 01/07/24 14:11 Assessment & Plan Assessment & Plan (1) Current use of anticoagulant therapy: Code(s): Z79.01 - retirement (current) use of anticoagulants Category: Medical
[2024-01-07 14:10] LABS: Prothrombin Time Whole Bld POC 34.2 sec (11.1-13.5); ~PT, ~INR - Anti Coag Clinic 2.9 (0.9-1.1)
== END 2024-01-07 14:19 | disposition home or self-care (01) ==
LOC: HO.ACS 13:46
PROVIDERS: PCP Family Medicine; Visit Provider Internal Medicine
DX: Z79.01 Long term (current) use of anticoagulants (principal)

== ENCOUNTER → 2024-01-07 13:46 | Outpatient (BNVA) | payer MEDICARE, SELFPAY | PROVIDERS: PCP Family Medicine; Visit Provider Internal Medicine | DX: I48.0 Paroxysmal atrial fibrillation (principal); Z79.01 Long term (current) use of anticoagulants; Z51.81 Encounter for therapeutic drug level monitoring | CPT/HCPCS: 85610; 99211 ==

== ENCOUNTER 2024-01-28 14:28 | Outpatient (AMB) | payer MEDICARE, SELFPAY ==
--- NOTE | 2024-01-28 14:49 | MHC.OFFVISCO ---
Intake Intake Visit Reasons: Anticoagulation Allergies diltiazem [From Cardizem] Allergy (Intermediate, Verified 01/28/24 14:39) rash Medication List - Last Reconciled 01/28/24 by Maddison Hernandez RN aspirin 81 mg PO DAILY atorvastatin 80 mg PO DAILY carvedilol 25MG 2 TABS PO 2 times a day; must administer with a meal/food cholecalciferol (vitamin D3) 50 mcg PO DAILY metronidazole 0.75% appl topical DAILY multivitamin 1 tab PO DAILY [OCUVITE PO DAILY] warfarin 5 mg See Protocol PO DAILY Nursing Note INR: 2.5 in therapeutic range of 2-3 Medications and supplements reviewed, no changes No changes in health, diet, medications, or supplements, Denies any signs and symptoms of bleeding or bruising or clotting. Bleeding, bruising, clotting discussed Nutritional guidance given Dose: cont usual dose of 5 mg daily F/U INR: 3 weeks Patient verbalizes understanding of instructions given Anti-Coag Initial Assessment Social Hx Patient Tobacco Use Status: Former Tobacco user Tobacco use type: Cigar and Pipe alcohol intake: former Alcohol intake frequency: does not drink Cardiovascular Hx: CAD and Arrhythmias Musculoskeletal Hx: Arthritis Blood Disorder Hx: Hyperlipidemia GI Hx: Diverticulosis Cancer HX: No Psych. 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
[2024-01-28 14:53] LABS: Prothrombin Time Whole Bld POC 30.3 sec (11.1-13.5); ~PT, ~INR - Anti Coag Clinic 2.5 (0.9-1.1)
== END 2024-01-28 14:51 | disposition home or self-care (01) ==
LOC: HO.ACS 14:28
PROVIDERS: PCP Family Medicine; Visit Provider Internal Medicine
DX: Z79.01 Long term (current) use of anticoagulants (principal)

== ENCOUNTER → 2024-01-28 14:28 | Outpatient (BNVA) | payer MEDICARE, SELFPAY | PROVIDERS: PCP Family Medicine; Visit Provider Internal Medicine | DX: I48.0 Paroxysmal atrial fibrillation (principal); Z79.01 Long term (current) use of anticoagulants; Z51.81 Encounter for therapeutic drug level monitoring | CPT/HCPCS: 85610; 99211 ==

== ENCOUNTER 2024-02-18 13:54 | Outpatient (AMB) | payer MEDICARE, SELFPAY ==
[2024-02-18 14:06] LABS: Prothrombin Time Whole Bld POC 26.9 sec (11.1-13.5); ~PT, ~INR - Anti Coag Clinic 2.2 (0.9-1.1)
--- NOTE | 2024-02-18 14:11 | MHC.OFFVISCO ---
Intake Intake Visit Reasons: Anticoagulation Allergies diltiazem [From Cardizem] Allergy (Intermediate, Verified 02/18/24 14:02) rash Nursing Note INR: 2.2 in therapeutic range of 2-3 Medications and supplements reviewed: no change No changes in health, diet, medications, or supplements, Denies any signs and symptoms of bleeding or bruising or clotting. Bleeding, bruising, clotting discussed Nutritional guidance given to continue to balance reds and greens Dose: 5mg daily F/U INR: 3 weeks Patient verbalizes understanding of instructions given Anti-Coag Initial Assessment Social Hx Patient Tobacco Use Status: Former Tobacco user Tobacco use type: Cigar and Pipe alcohol intake: former Alcohol intake frequency: does not drink Cardiovascular Hx: CAD and Arrhythmias Musculoskeletal Hx: Arthritis Blood Disorder Hx: Hyperlipidemia GI Hx: Diverticulosis Cancer HX: No Psych. 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
== END 2024-02-18 14:46 | disposition home or self-care (01) ==
LOC: HO.ACS 13:54
PROVIDERS: PCP Family Medicine; Visit Provider Internal Medicine
DX: Z79.01 Long term (current) use of anticoagulants (principal)

== ENCOUNTER → 2024-02-18 13:54 | Outpatient (BNVA) | payer MEDICARE, SELFPAY | PROVIDERS: PCP Family Medicine; Visit Provider Internal Medicine | DX: I48.0 Paroxysmal atrial fibrillation (principal); Z51.81 Encounter for therapeutic drug level monitoring; Z79.01 Long term (current) use of anticoagulants | CPT/HCPCS: 85610; 99211 ==

== ENCOUNTER 2024-03-10 14:01 | Outpatient (AMB) | payer MEDICARE, SELFPAY ==
[2024-03-10 14:13] LABS: Prothrombin Time Whole Bld POC 30.9 sec (11.1-13.5); ~PT, ~INR - Anti Coag Clinic 2.6 (0.9-1.1)
--- NOTE | 2024-03-10 14:18 | MHC.OFFVISCO ---
Intake Intake Visit Reasons: Anticoagulation Allergies diltiazem [From Cardizem] Allergy (Intermediate, Verified 03/10/24 14:05) rash Medication List - Last Reconciled 03/10/24 by Maddison Hernandez, CONCEPCION aspirin 81 mg PO DAILY atorvastatin 80 mg PO DAILY carvedilol 25MG 2 TABS PO 2 times a day; must administer with a meal/food cholecalciferol (vitamin D3) 50 mcg PO DAILY metronidazole 0.75% appl topical DAILY multivitamin 1 tab PO DAILY [OCUVITE PO DAILY] warfarin 5 mg See Protocol PO DAILY Nursing Note INR: 2.6 in therapeutic range OF 2-3 Medications and supplements reviewed: NO CHANGES, Denies any signs and symptoms of bleeding or bruising or clotting. Bleeding, bruising, clotting discussed Nutritional guidance given TO CONTINUE TO BALANCE REDS AND GREENS Dose: 5MG DAILY F/U INR: 4 WEEKS Patient verbalizes understanding of instructions given Anti-Coag Initial Assessment Social Hx Patient Tobacco Use Status: Former Tobacco user Tobacco use type: Cigar and Pipe alcohol intake: former Alcohol intake frequency: does not drink Cardiovascular Hx: CAD and Arrhythmias Musculoskeletal Hx: Arthritis Blood Disorder Hx: Hyperlipidemia GI Hx: Diverticulosis Cancer HX: No Psych. 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
== END 2024-03-10 14:28 | disposition home or self-care (01) ==
LOC: HO.ACS 14:01
PROVIDERS: PCP Family Medicine; Visit Provider Internal Medicine
DX: Z79.01 Long term (current) use of anticoagulants (principal)

== ENCOUNTER → 2024-03-10 14:01 | Outpatient (BNVA) | payer MEDICARE, SELFPAY | PROVIDERS: PCP Family Medicine; Visit Provider Internal Medicine | DX: I48.0 Paroxysmal atrial fibrillation (principal); Z51.81 Encounter for therapeutic drug level monitoring; Z79.01 Long term (current) use of anticoagulants | CPT/HCPCS: 85610; 99211 ==

== ENCOUNTER 2024-04-08 13:59 | Outpatient (AMB) | payer MEDICARE, SELFPAY ==
--- NOTE | 2024-04-08 14:16 | MHC.OFFVISCO ---
Intake Intake Visit Reasons: Anticoagulation Allergies diltiazem [From Cardizem] Allergy (Intermediate, Verified 04/08/24 14:10) rash Medication List - Last Reconciled 04/08/24 by Aleta Weber RN aspirin 81 mg PO DAILY atorvastatin 80 mg PO DAILY carvedilol 25MG 2 TABS PO 2 times a day; must administer with a meal/food cholecalciferol (vitamin D3) 50 mcg PO DAILY metronidazole 0.75% appl topical DAILY multivitamin 1 tab PO DAILY [OCUVITE PO DAILY] warfarin 5 mg See Protocol PO DAILY Nursing Note INR: 2.8- in therapeutic range of 2-3 Medications and supplements reviewed- no changes No changes in health, diet, medications, or supplements, Denies any signs and symptoms of bleeding or bruising or clotting. Bleeding, bruising, clotting discussed Nutritional guidance given Dose: 5mg x 7 F/U INR: 4 weeks Patient verbalizes understanding of instructions given Anti-Coag Initial Assessment Social Hx Patient Tobacco Use Status: Former Tobacco user Tobacco use type: Cigar and Pipe alcohol intake: former Alcohol intake frequency: does not drink Cardiovascular Hx: CAD and Arrhythmias Musculoskeletal Hx: Arthritis Blood Disorder Hx: Hyperlipidemia GI Hx: Diverticulosis Cancer HX: No Psych. Illness/Depression: No Coding Level of Care Code Est Patient Level 1 Diagnoses Current use of anticoagulant therapy Z79.01 Results AMB INR Fingerstick AMB INR Fingerstick 2.8 Last Edit by Aleta Weber RN on 04/08/24 14:18 Assessment & Plan Assessment & Plan (1) Current use of anticoagulant therapy: Code(s): Z79.01 - skilled nursing (current) use of anticoagulants Category: Medical
[2024-04-08 18:12] LABS: Prothrombin Time Whole Bld POC 33.9 sec (11.1-13.5); ~PT, ~INR - Anti Coag Clinic 2.8 (0.9-1.1)
== END 2024-04-08 14:27 | disposition home or self-care (01) ==
LOC: HO.ACS 13:59
PROVIDERS: PCP Family Medicine; Visit Provider Internal Medicine
DX: Z79.01 Long term (current) use of anticoagulants (principal)

== ENCOUNTER → 2024-04-08 13:59 | Outpatient (BNVA) | payer MEDICARE, SELFPAY | PROVIDERS: PCP Family Medicine; Visit Provider Internal Medicine | DX: I48.0 Paroxysmal atrial fibrillation (principal); Z79.01 Long term (current) use of anticoagulants; Z51.81 Encounter for therapeutic drug level monitoring | CPT/HCPCS: 85610; 99211 ==

== ENCOUNTER 2024-05-06 09:28 | Outpatient (AMB) | payer MEDICARE, SELFPAY ==
[2024-05-06 09:35] LABS: ~PT, ~INR - Anti Coag Clinic 3.5 (0.9-1.1)
--- NOTE | 2024-05-06 09:48 | MHC.OFFVISCO ---
Intake Intake Visit Reasons: Anticoagulation Allergies diltiazem [From Cardizem] Allergy (Intermediate, Verified 05/06/24 09:31) rash Medication List - Last Reconciled 05/06/24 by Farida Ramirez RN aspirin 81 mg PO DAILY atorvastatin 80 mg PO DAILY carvedilol 25MG 2 TABS PO 2 times a day; must administer with a meal/food cholecalciferol (vitamin D3) 50 mcg PO DAILY metronidazole 0.75% appl topical DAILY multivitamin 1 tab PO DAILY [OCUVITE PO DAILY] warfarin 5 mg See Protocol PO DAILY Nursing Note NO CP,SOB,DIET/MED CHANGES,FALLS ORM SX OF BLEEDING. HOLD WARFARIN TODAY THEN RESUME USUAL DOSE AND FOLLOW-UP IN 3 WEEKS GOOD UNDERSTANDING OF DOSING INSTR. Anti-Coag Initial Assessment Social Hx Patient Tobacco Use Status: Former Tobacco user Tobacco use type: Cigar and Pipe alcohol intake: former Alcohol intake frequency: does not drink Cardiovascular Hx: CAD and Arrhythmias Musculoskeletal Hx: Arthritis Blood Disorder Hx: Hyperlipidemia GI Hx: Diverticulosis Cancer HX: No Psych. Illness/Depression: No Coding Level of Care Code Est Patient Level 1 Diagnoses Current use of anticoagulant therapy Z79.01 Assessment & Plan Assessment & Plan (1) Current use of anticoagulant therapy: Code(s): Z79.01 - nursing home (current) use of anticoagulants Category: Medical
== END 2024-05-06 09:50 | disposition home or self-care (01) ==
LOC: HO.ACS 09:28
PROVIDERS: PCP Family Medicine; Visit Provider Internal Medicine
DX: Z79.01 Long term (current) use of anticoagulants (principal)

== ENCOUNTER → 2024-05-06 09:28 | Outpatient (BNVA) | payer MEDICARE, SELFPAY | PROVIDERS: PCP Family Medicine; Visit Provider Internal Medicine | DX: I48.0 Paroxysmal atrial fibrillation (principal); Z79.01 Long term (current) use of anticoagulants; Z51.81 Encounter for therapeutic drug level monitoring | CPT/HCPCS: 85610; 99211 ==

== ENCOUNTER 2024-05-27 13:50 | Outpatient (AMB) | payer MEDICARE, SELFPAY ==
[2024-05-27 13:59] LABS: Prothrombin Time Whole Bld POC 38.4 sec (11.1-13.5); ~PT, ~INR - Anti Coag Clinic 3.2 (0.9-1.1)
--- NOTE | 2024-05-27 14:05 | MHC.OFFVISCO ---
Intake Intake Visit Reasons: Anticoagulation Allergies diltiazem [From Cardizem] Allergy (Intermediate, Verified 05/27/24 13:54) rash Medication List - Last Reconciled 05/27/24 by Lor Florence RN aspirin 81 mg PO DAILY atorvastatin 80 mg PO DAILY carvedilol 25MG 2 TABS PO 2 times a day; must administer with a meal/food cholecalciferol (vitamin D3) 50 mcg PO DAILY metronidazole 0.75% appl topical DAILY multivitamin 1 tab PO DAILY [OCUVITE PO DAILY] warfarin 5 mg See Protocol PO DAILY Nursing Note INR: 3.2 OUT therapeutic range Medications and supplements reviewed had more summer food reds Denies any signs and symptoms of bleeding or bruising or clotting. Bleeding, bruising, clotting discussed Nutritional guidance given - will eat greens today Dose: keep same evelyn 5mg daily F/U INR: 3 weeks Patient verbalizes understanding of instructions given Anti-Coag Initial Assessment Social Hx Patient Tobacco Use Status: Former Tobacco user Tobacco use type: Cigar and Pipe alcohol intake: former Alcohol intake frequency: does not drink Cardiovascular Hx: CAD and Arrhythmias Musculoskeletal Hx: Arthritis Blood Disorder Hx: Hyperlipidemia GI Hx: Diverticulosis Cancer HX: No Psych. 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
== END 2024-05-27 14:08 | disposition home or self-care (01) ==
LOC: HO.ACS 13:50
PROVIDERS: PCP Family Medicine; Visit Provider Internal Medicine
DX: Z79.01 Long term (current) use of anticoagulants (principal)

== ENCOUNTER → 2024-05-27 13:50 | Outpatient (BNVA) | payer MEDICARE, SELFPAY | PROVIDERS: PCP Family Medicine; Visit Provider Internal Medicine | DX: I48.0 Paroxysmal atrial fibrillation (principal); Z79.01 Long term (current) use of anticoagulants; Z51.81 Encounter for therapeutic drug level monitoring | CPT/HCPCS: 85610; 99211 ==

== ENCOUNTER 2024-06-16 13:59 | Outpatient (AMB) | payer MEDICARE, SELFPAY ==
[2024-06-16 14:10] LABS: Prothrombin Time Whole Bld POC 44.2 sec (11.1-13.5); ~PT, ~INR - Anti Coag Clinic 3.7 (0.9-1.1)
--- NOTE | 2024-06-16 14:10 | MHC.OFFVISCO ---
Intake Intake Visit Reasons: Anticoagulation Allergies diltiazem [From Cardizem] Allergy (Intermediate, Verified 06/16/24 14:02) rash Medication List - Last Reconciled 06/16/24 by Aleta Weber RN aspirin 81 mg PO DAILY atorvastatin 80 mg PO DAILY carvedilol 25MG 2 TABS PO 2 times a day; must administer with a meal/food cholecalciferol (vitamin D3) 50 mcg PO DAILY metronidazole 0.75% appl topical DAILY multivitamin 1 tab PO DAILY [OCUVITE PO DAILY] warfarin 5 mg See Protocol PO DAILY Nursing Note INR 3.7-?? out of therapeutic range of 2-3 Medications and supplements reviewed Patient status: stress Medications or supplements: no changes Diet: same Denies any signs and symptoms of bleeding or clotting or unusual bruising Bleeding, bruising, clotting discussed Nutritional guidance given: eat a green today, no reds for 2 days Dose: reduce weekly dosing to 5mg x 6, 2.5mg x 1 F/U INR Date : 2 weeks? Patient verbalizing understanding of instructions given. Anti-Coag Initial Assessment Social Hx Patient Tobacco Use Status: Former Tobacco user Tobacco use type: Cigar and Pipe alcohol intake: former Alcohol intake frequency: does not drink Cardiovascular Hx: CAD and Arrhythmias Musculoskeletal Hx: Arthritis Blood Disorder Hx: Hyperlipidemia GI Hx: Diverticulosis Cancer HX: No Psych. Illness/Depression: No Coding Level of Care Code Est Patient Level 1 Diagnoses Current use of anticoagulant therapy Z79.01 Assessment & Plan Assessment & Plan (1) Current use of anticoagulant therapy: Code(s): Z79.01 - group home (current) use of anticoagulants Category: Medical
== END 2024-06-16 14:16 | disposition home or self-care (01) ==
LOC: HO.ACS 13:59
PROVIDERS: PCP Family Medicine; Visit Provider Internal Medicine
DX: Z79.01 Long term (current) use of anticoagulants (principal)

== ENCOUNTER → 2024-06-16 13:59 | Outpatient (BNVA) | payer MEDICARE, SELFPAY | PROVIDERS: PCP Family Medicine; Visit Provider Internal Medicine | DX: I48.0 Paroxysmal atrial fibrillation (principal); Z79.01 Long term (current) use of anticoagulants; Z51.81 Encounter for therapeutic drug level monitoring | CPT/HCPCS: 85610; 99211 ==

== ENCOUNTER 2024-06-30 14:10 | Outpatient (AMB) | payer MEDICARE, SELFPAY ==
--- NOTE | 2024-06-30 14:23 | MHC.OFFVISCO ---
Intake Intake Visit Reasons: Anticoagulation Allergies diltiazem [From Cardizem] Allergy (Intermediate, Verified 06/30/24 14:20) rash Medication List - Last Reconciled 06/30/24 by Aleta Weber RN aspirin 81 mg PO DAILY atorvastatin 80 mg PO DAILY carvedilol 25MG 2 TABS PO 2 times a day; must administer with a meal/food cholecalciferol (vitamin D3) 50 mcg PO DAILY metronidazole 0.75% appl topical DAILY multivitamin 1 tab PO DAILY [OCUVITE PO DAILY] warfarin 5 mg See Protocol PO DAILY Nursing Note INR 1.9? out of therapeutic range of 2-3 Medications and supplements reviewed Patient status: no c.o Medications or supplements: no changes Diet: pt ate an increased amounts of greens Denies any signs and symptoms of bleeding or clotting or unusual bruising Bleeding, bruising, clotting discussed Nutritional guidance given: no greens for 2 days, eat a red today Dose: cont 5mg x 6, 2.5mg x 1 F/U INR Date : 2 weeks Patient verbalizing understanding of instructions given. Anti-Coag Initial Assessment Social Hx Patient Tobacco Use Status: Former Tobacco user Tobacco use type: Cigar and Pipe alcohol intake: former Alcohol intake frequency: does not drink Cardiovascular Hx: CAD and Arrhythmias Musculoskeletal Hx: Arthritis Blood Disorder Hx: Hyperlipidemia GI Hx: Diverticulosis Cancer HX: No Psych. Illness/Depression: No Coding Level of Care Code Est Patient Level 1 Diagnoses Current use of anticoagulant therapy Z79.01 Assessment & Plan Assessment & Plan (1) Current use of anticoagulant therapy: Code(s): Z79.01 - correction (current) use of anticoagulants Category: Medical
[2024-06-30 14:24] LABS: Prothrombin Time Whole Bld POC 22.4 sec (11.1-13.5); ~PT, ~INR - Anti Coag Clinic 1.9 (0.9-1.1)
== END 2024-06-30 15:21 | disposition home or self-care (01) ==
LOC: HO.ACS 14:10
PROVIDERS: PCP Family Medicine; Visit Provider Internal Medicine
DX: Z79.01 Long term (current) use of anticoagulants (principal)

== ENCOUNTER → 2024-06-30 14:10 | Outpatient (BNVA) | payer MEDICARE, SELFPAY | PROVIDERS: PCP Family Medicine; Visit Provider Internal Medicine | DX: I48.0 Paroxysmal atrial fibrillation (principal); Z79.01 Long term (current) use of anticoagulants; Z51.81 Encounter for therapeutic drug level monitoring | CPT/HCPCS: 85610; 99211 ==

== ENCOUNTER 2024-07-14 14:27 | Outpatient (AMB) | payer MEDICARE, SELFPAY ==
--- NOTE | 2024-07-14 14:42 | MHC.OFFVISCO ---
Intake Intake Visit Reasons: Anticoagulation Allergies diltiazem [From Cardizem] Allergy (Intermediate, Verified 07/14/24 14:35) rash Medication List - Last Reconciled 07/14/24 by Aleta Weber RN aspirin 81 mg PO DAILY atorvastatin 80 mg PO DAILY carvedilol 25MG 2 TABS PO 2 times a day; must administer with a meal/food cholecalciferol (vitamin D3) 50 mcg PO DAILY metronidazole 0.75% appl topical DAILY multivitamin 1 tab PO DAILY [OCUVITE PO DAILY] warfarin 5 mg See Protocol PO DAILY Nursing Note INR: 2.6- in therapeutic range of 2-3 Medications and supplements reviewed- no changes No changes in health, diet, medications, or supplements, Denies any signs and symptoms of bleeding or bruising or clotting. Bleeding, bruising, clotting discussed Nutritional guidance given Dose: 5mg x 6, 2.5mg x 1 F/U INR: 2 weeks Patient verbalizes understanding of instructions given Anti-Coag Initial Assessment Social Hx Patient Tobacco Use Status: Former Tobacco user Tobacco use type: Cigar and Pipe alcohol intake: former Alcohol intake frequency: does not drink Cardiovascular Hx: CAD and Arrhythmias Musculoskeletal Hx: Arthritis Blood Disorder Hx: Hyperlipidemia GI Hx: Diverticulosis Cancer HX: No Psych. 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
[2024-07-14 14:44] LABS: Prothrombin Time Whole Bld POC 31.8 sec (11.1-13.5); ~PT, ~INR - Anti Coag Clinic 2.6 (0.9-1.1)
== END 2024-07-14 14:47 | disposition home or self-care (01) ==
LOC: HO.ACS 14:27
PROVIDERS: PCP Family Medicine; Visit Provider Internal Medicine
DX: Z79.01 Long term (current) use of anticoagulants (principal)

== ENCOUNTER → 2024-07-14 14:27 | Outpatient (BNVA) | payer MEDICARE, SELFPAY | PROVIDERS: PCP Family Medicine; Visit Provider Internal Medicine | DX: I48.0 Paroxysmal atrial fibrillation (principal); Z79.01 Long term (current) use of anticoagulants; Z51.81 Encounter for therapeutic drug level monitoring | CPT/HCPCS: 85610; 99211 ==

== ENCOUNTER 2024-07-28 13:51 | Outpatient (AMB) | payer MEDICARE, SELFPAY ==
--- NOTE | 2024-07-28 14:25 | MHC.OFFVISCO ---
Intake Intake Visit Reasons: Anticoagulation Allergies diltiazem [From Cardizem] Allergy (Intermediate, Verified 07/28/24 14:18) rash Medication List - Last Reconciled 07/28/24 by Aleta Weber RN aspirin 81 mg PO DAILY atorvastatin 80 mg PO DAILY carvedilol 25MG 2 TABS PO 2 times a day; must administer with a meal/food cholecalciferol (vitamin D3) 50 mcg PO DAILY metronidazole 0.75% appl topical DAILY multivitamin 1 tab PO DAILY [OCUVITE PO DAILY] warfarin 5 mg See Protocol PO DAILY Nursing Note INR: 2.0- in therapeutic range 2-3 Medications and supplements reviewed- no changes No changes in health, diet, medications, or supplements, Denies any signs and symptoms of bleeding or bruising or clotting. Bleeding, bruising, clotting discussed Nutritional guidance given - no greens for 2 days, eat reds to raise Dose: 5mg x 6, 2.5mg x 1 F/U INR: 2 week Patient verbalizes understanding of instructions given Anti-Coag Initial Assessment Social Hx Patient Tobacco Use Status: Former Tobacco user Tobacco use type: Cigar and Pipe alcohol intake: former Alcohol intake frequency: does not drink Cardiovascular Hx: CAD and Arrhythmias Musculoskeletal Hx: Arthritis Blood Disorder Hx: Hyperlipidemia GI Hx: Diverticulosis Cancer HX: No Psych. Illness/Depression: No Coding Level of Care Code Est Patient Level 1 Diagnoses Current use of anticoagulant therapy Z79.01 Assessment & Plan Assessment & Plan (1) Current use of anticoagulant therapy: Code(s): Z79.01 - [facility] (current) use of anticoagulants Category: Medical
[2024-07-28 14:26] LABS: Prothrombin Time Whole Bld POC 23.6 sec (11.1-13.5)
== END 2024-07-28 14:30 | disposition home or self-care (01) ==
LOC: HO.ACS 13:51
PROVIDERS: PCP Family Medicine; Visit Provider Internal Medicine
DX: Z79.01 Long term (current) use of anticoagulants (principal)

== ENCOUNTER → 2024-07-28 13:51 | Outpatient (BNVA) | payer MEDICARE, SELFPAY | PROVIDERS: PCP Family Medicine; Visit Provider Internal Medicine | DX: I48.0 Paroxysmal atrial fibrillation (principal); Z79.01 Long term (current) use of anticoagulants; Z51.81 Encounter for therapeutic drug level monitoring | CPT/HCPCS: 85610; 99211 ==

== ENCOUNTER 2024-08-11 13:55 | Outpatient (AMB) | payer MEDICARE, SELFPAY ==
[2024-08-11 14:05] LABS: Prothrombin Time Whole Bld POC 34.9 sec (11.1-13.5); ~PT, ~INR - Anti Coag Clinic 2.9 (0.9-1.1)
--- NOTE | 2024-08-11 14:10 | MHC.OFFVISCO ---
Intake Intake Visit Reasons: Anticoagulation Allergies diltiazem [From Cardizem] Allergy (Intermediate, Verified 08/11/24 13:56) rash Medication List - Last Reconciled 08/11/24 by Maddison Hernandez RN aspirin 81 mg PO DAILY atorvastatin 80 mg PO DAILY carvedilol 25MG 2 TABS PO 2 times a day; must administer with a meal/food cholecalciferol (vitamin D3) 50 mcg PO DAILY metronidazole 0.75% appl topical DAILY multivitamin 1 tab PO DAILY [OCUVITE PO DAILY] warfarin 5 mg See Protocol PO DAILY Nursing Note INR: 2.9 in therapeutic range of 2-3 Medications and supplements reviewed No changes in health, diet, medications, or supplements, Denies any signs and symptoms of bleeding or bruising or clotting. Bleeding, bruising, clotting discussed Nutritional guidance given to have a serving of greens today Dose: 5mg X 6 days and 2.5mg X 1 day () F/U INR: 2 weeks Patient verbalizes understanding of instructions given Anti-Coag Initial Assessment Social Hx Patient Tobacco Use Status: Former Tobacco user Tobacco use type: Cigar and Pipe alcohol intake: former Alcohol intake frequency: does not drink Cardiovascular Hx: CAD and Arrhythmias Musculoskeletal Hx: Arthritis Blood Disorder Hx: Hyperlipidemia GI Hx: Diverticulosis Cancer HX: No Psych. 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
== END 2024-08-11 14:12 | disposition home or self-care (01) ==
LOC: HO.ACS 13:55
PROVIDERS: PCP Family Medicine; Visit Provider Internal Medicine
DX: Z79.01 Long term (current) use of anticoagulants (principal)

== ENCOUNTER → 2024-08-11 13:55 | Outpatient (BNVA) | payer MEDICARE, SELFPAY | PROVIDERS: PCP Family Medicine; Visit Provider Internal Medicine | DX: I48.0 Paroxysmal atrial fibrillation (principal); Z79.01 Long term (current) use of anticoagulants; Z51.81 Encounter for therapeutic drug level monitoring | CPT/HCPCS: 85610; 99211 ==

== ENCOUNTER 2024-08-25 13:56 | Outpatient (AMB) | payer MEDICARE, SELFPAY ==
[2024-08-25 14:18] LABS: Prothrombin Time Whole Bld POC 34.3 sec (11.1-13.5); ~PT, ~INR - Anti Coag Clinic 2.9 (0.9-1.1)
--- NOTE | 2024-08-25 14:19 | MHC.OFFVISCO ---
Intake Intake Visit Reasons: Anticoagulation Allergies diltiazem [From Cardizem] Allergy (Intermediate, Verified 08/25/24 14:00) rash Medication List - Last Reconciled 08/25/24 by Lor Florence RN aspirin 81 mg PO DAILY atorvastatin 80 mg PO DAILY carvedilol 25MG 2 TABS PO 2 times a day; must administer with a meal/food cholecalciferol (vitamin D3) 50 mcg PO DAILY fluorouracil 5% 1 appl topical BID metronidazole 0.75% appl topical DAILY multivitamin 1 tab PO DAILY [OCUVITE PO DAILY] warfarin 5 mg See Protocol PO DAILY Nursing Note INR: 2.9 in therapeutic range Medications and supplements reviewed No changes in health, diet, medications, or supplements, Denies any signs and symptoms of bleeding or bruising or clotting. Bleeding, bruising, clotting discussed Nutritional guidance given Dose: 2.5MG X 1 DAY/ 5MG X 6 DAYS F/U INR: 2 WEEKS AFTER RETURN FROM TRIP patient verbalizes understanding of instructions given Anti-Coag Initial Assessment Social Hx Patient Tobacco Use Status: Former Tobacco user Tobacco use type: Cigar and Pipe alcohol intake: former Alcohol intake frequency: does not drink Cardiovascular Hx: CAD and Arrhythmias Musculoskeletal Hx: Arthritis Blood Disorder Hx: Hyperlipidemia GI Hx: Diverticulosis Cancer HX: No Psych. Illness/Depression: No Questionnaires HAS-BLED Does the patient had uncontrolled Hypertension?: No Does the patient have renal disease?: No Does the patient have liver disease?: No Does the patient have a history of stroke?: No Has the patient had major bleeding or predisposition to bleeding?: No Does the patient have labile INRs?: No Is the patient over 65 years of age?: Yes Is the patient on medications that gives them a predisposition to bleeding?: Yes Does the patient use alcohol?: No HAS-BLED Score: 2 CHADSVASC Age: 75 or over Gender: Male Does the patient have a history of CHF?: No Does the patient have a history of Hypertension?: No Does the patient have a history of Stroke/TIA/Thromboembolism?: No Does the patient have a history of Vascular Disease (prior CA, PAD or aortic plaque)?: Yes (ON CHOLESTEROL MED , CAD AND A CABG ) Does the patient have a history of Diabetes?: No CHADS VACS Score: 3 Radha Prediction Score Rsk VTE Active Cancer: No Previous VTE, excluding superficial vein thrombosis: No Reduced mobility: No Already known Thrombophilic Condition: No (s/p covid 05/18/22) With-in last month Trauma and/or Surgery: No Elderly 70 year or older: Yes Heart and/or Respiratory Failure: No Acute Myocardial infarction and/or Ischemic Stroke: No Acute Infection and/or Rheumatologic Disorder: No Obesity (BMI 30 or greater): No Ongoing Hormonal Treatment: No Score: 1 Radha Score less than 4; Low Risk of VTE Radha Score 4 or greater; High Risk of VTE Coding Level of Care Code Est Patient Level 1 Diagnoses Current use of anticoagulant therapy Z79.01 Results AMB INR Fingerstick AMB INR Fingerstick 2.9 Last Edit by Lor Florence RN on 08/25/24 14:08 manual entry Assessment & Plan Assessment & Plan (1) Current use of anticoagulant therapy: Code(s): Z79.01 - longterm (current) use of anticoagulants Category: Medical
== END 2024-08-25 14:25 | disposition home or self-care (01) ==
LOC: HO.ACS 13:56
PROVIDERS: PCP Family Medicine; Visit Provider Internal Medicine
DX: Z79.01 Long term (current) use of anticoagulants (principal)

== ENCOUNTER → 2024-08-25 13:56 | Outpatient (BNVA) | payer MEDICARE, SELFPAY | PROVIDERS: PCP Family Medicine; Visit Provider Internal Medicine | DX: I48.0 Paroxysmal atrial fibrillation (principal); Z79.01 Long term (current) use of anticoagulants; Z51.81 Encounter for therapeutic drug level monitoring | CPT/HCPCS: 85610; 99211 ==

== ENCOUNTER 2024-09-08 13:46 | Outpatient (AMB) | payer MEDICARE, SELFPAY ==
--- NOTE | 2024-09-08 14:06 | MHC.OFFVISCO ---
Intake Intake Visit Reasons: Anticoagulation Allergies diltiazem [From Cardizem] Allergy (Intermediate, Verified 09/08/24 14:00) rash Medication List - Last Reconciled 09/08/24 by Aleta Weber RN aspirin 81 mg PO DAILY atorvastatin 80 mg PO DAILY carvedilol 25MG 2 TABS PO 2 times a day; must administer with a meal/food metronidazole 0.75% appl topical DAILY multivitamin 1 tab PO DAILY [OCUVITE PO DAILY] warfarin 5 mg See Protocol PO DAILY Nursing Note INR 3.2-? out of therapeutic range 2-3 Medications and supplements reviewed Patient status: pt returned from vacation in [place], c. congestion Medications or supplements: cold med prn, beachams cold tablets- paracetamol/tylenol, phenylephrine and guaifenesin- no interaction per micromedex, pt states finished with this Diet: appetite is good Denies any signs and symptoms of bleeding or clotting or unusual bruising Bleeding, bruising, clotting discussed Nutritional guidance given: eat greens to lower, no reds for 2-3 days Dose: 2.5mg x 1. 5mg x 6 F/U INR Date : 2 weeks?? Patient verbalizing understanding of instructions given. Anti-Coag Initial Assessment Social Hx Patient Tobacco Use Status: Former Tobacco user Tobacco use type: Cigar and Pipe alcohol intake: former Alcohol intake frequency: does not drink Cardiovascular Hx: CAD and Arrhythmias Musculoskeletal Hx: Arthritis Blood Disorder Hx: Hyperlipidemia GI Hx: Diverticulosis Cancer HX: No Psych. Illness/Depression: No Coding Level of Care Code Est Patient Level 1 Diagnoses Current use of anticoagulant therapy Z79.01 Assessment & Plan Assessment & Plan (1) Current use of anticoagulant therapy: Code(s): Z79.01 - senior living (current) use of anticoagulants Category: Medical
[2024-09-08 14:08] LABS: Prothrombin Time Whole Bld POC 38.9 sec (11.1-13.5); ~PT, ~INR - Anti Coag Clinic 3.2 (0.9-1.1)
== END 2024-09-08 14:32 | disposition home or self-care (01) ==
LOC: HO.ACS 13:46
PROVIDERS: PCP Family Medicine; Visit Provider Internal Medicine
DX: Z79.01 Long term (current) use of anticoagulants (principal)

== ENCOUNTER → 2024-09-08 13:46 | Outpatient (BNVA) | payer MEDICARE, SELFPAY | PROVIDERS: PCP Family Medicine; Visit Provider Internal Medicine | DX: I48.0 Paroxysmal atrial fibrillation (principal); Z79.01 Long term (current) use of anticoagulants; Z51.81 Encounter for therapeutic drug level monitoring | CPT/HCPCS: 85610; 99211 ==

== ENCOUNTER 2024-09-21 13:47 | Outpatient (AMB) | payer MEDICARE, SELFPAY ==
[2024-09-21 14:06] LABS: Prothrombin Time Whole Bld POC 31.9 sec (11.1-13.5); ~PT, ~INR - Anti Coag Clinic 2.7 (0.9-1.1)
--- NOTE | 2024-09-21 14:12 | MHC.OFFVISCO ---
Intake Intake Visit Reasons: Anticoagulation Allergies diltiazem [From Cardizem] Allergy (Intermediate, Verified 09/21/24 14:00) rash Medication List - Last Reconciled 09/21/24 by Lor Florence RN aspirin 81 mg PO DAILY atorvastatin 80 mg PO DAILY carvedilol 25MG 2 TABS PO 2 times a day; must administer with a meal/food metronidazole 0.75% appl topical DAILY multivitamin 1 tab PO DAILY [OCUVITE PO DAILY] warfarin 5 mg See Protocol PO DAILY Nursing Note INR: 2.7 in therapeutic range Medications and supplements reviewed No changes in health, diet, medications, or supplements, Denies any signs and symptoms of bleeding or bruising or clotting. Bleeding, bruising, clotting discussed Nutritional guidance given Dose: 2.5MG X 1 DAY/ 5MG X 6 DAYS F/U INR: 2 WEEKS Patient verbalizes understanding of instructions given Anti-Coag Initial Assessment Social Hx Patient Tobacco Use Status: Former Tobacco user Tobacco use type: Cigar and Pipe alcohol intake: former Alcohol intake frequency: does not drink Cardiovascular Hx: CAD and Arrhythmias Musculoskeletal Hx: Arthritis Blood Disorder Hx: Hyperlipidemia GI Hx: Diverticulosis Cancer HX: No Psych. 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
== END 2024-09-21 14:15 | disposition home or self-care (01) ==
LOC: HO.ACS 13:47
PROVIDERS: PCP Family Medicine; Visit Provider Internal Medicine
DX: Z79.01 Long term (current) use of anticoagulants (principal)

== ENCOUNTER → 2024-09-21 13:47 | Outpatient (BNVA) | payer MEDICARE, SELFPAY | PROVIDERS: PCP Family Medicine; Visit Provider Internal Medicine | DX: I48.0 Paroxysmal atrial fibrillation (principal); Z79.01 Long term (current) use of anticoagulants; Z51.81 Encounter for therapeutic drug level monitoring | CPT/HCPCS: 85610; 99211 ==

== ENCOUNTER 2024-10-06 13:54 | Outpatient (AMB) | payer MEDICARE, SELFPAY ==
--- NOTE | 2024-10-06 14:04 | MHC.OFFVISCO ---
Intake Intake Visit Reasons: Anticoagulation Allergies diltiazem [From Cardizem] Allergy (Intermediate, Verified 10/06/24 14:02) rash Medication List - Last Reconciled 10/06/24 by Maddison Hernandez, RN aspirin 81 mg PO DAILY atorvastatin 80 mg PO DAILY carvedilol 25MG 2 TABS PO 2 times a day; must administer with a meal/food metronidazole 0.75% appl topical DAILY multivitamin 1 tab PO DAILY [OCUVITE PO DAILY] warfarin 5 mg See Protocol PO DAILY Nursing Note INR: 2.4- in therapeutic range of 2-3 Medications and supplements reviewed- no changes No changes in health, diet, medications, or supplements, Denies any signs and symptoms of bleeding or bruising or clotting. Bleeding, bruising, clotting discussed Nutritional guidance given Dose: 5mg x 6, 2.5mg x 1 F/U INR: 3 weeks Patient verbalizes understanding of instructions given pt returned recently from vacation to [place] Anti-Coag Initial Assessment Social Hx Patient Tobacco Use Status: Former Tobacco user Tobacco use type: Cigar and Pipe alcohol intake: former Alcohol intake frequency: does not drink Cardiovascular Hx: CAD and Arrhythmias Musculoskeletal Hx: Arthritis Blood Disorder Hx: Hyperlipidemia GI Hx: Diverticulosis Cancer HX: No Psych. Illness/Depression: No Coding Level of Care Code Est Patient Level 1 Diagnoses Current use of anticoagulant therapy Z79.01 Results AMB INR Fingerstick AMB INR Fingerstick 2.4 Last Edit by Aleta Weber RN on 10/06/24 14:06 interface delay Assessment & Plan Assessment & Plan (1) Current use of anticoagulant therapy: Code(s): Z79.01 - [facility] (current) use of anticoagulants Category: Medical
[2024-10-06 14:06] LABS: ~PT, ~INR - Anti Coag Clinic 2.4 (0.9-1.1)
== END 2024-10-06 14:12 | disposition home or self-care (01) ==
LOC: HO.ACS 13:54
PROVIDERS: PCP Family Medicine; Visit Provider Internal Medicine
DX: Z79.01 Long term (current) use of anticoagulants (principal)

== ENCOUNTER → 2024-10-06 13:54 | Outpatient (BNVA) | payer MEDICARE, SELFPAY | PROVIDERS: PCP Family Medicine; Visit Provider Internal Medicine | DX: I48.0 Paroxysmal atrial fibrillation (principal); Z79.01 Long term (current) use of anticoagulants; Z51.81 Encounter for therapeutic drug level monitoring | CPT/HCPCS: 85610; 99211 ==

== ENCOUNTER 2024-10-27 13:25 | Outpatient (AMB) | payer MEDICARE, SELFPAY ==
[2024-10-27 13:35] LABS: Prothrombin Time Whole Bld POC 27.6 sec (11.1-13.5); ~PT, ~INR - Anti Coag Clinic 2.3 (0.9-1.1)
--- NOTE | 2024-10-27 13:49 | MHC.OFFVISCO ---
Intake Intake Visit Reasons: Anticoagulation Allergies diltiazem [From Cardizem] Allergy (Intermediate, Verified 10/27/24 13:28) rash Medication List - Last Reconciled 10/27/24 by oLr Florence RN aspirin 81 mg PO DAILY atorvastatin 80 mg PO DAILY carvedilol 25MG 2 TABS PO 2 times a day; must administer with a meal/food metronidazole 0.75% appl topical DAILY multivitamin 1 tab PO DAILY [OCUVITE PO DAILY] warfarin 5 mg See Protocol PO DAILY Nursing Note INR: 2.3 in therapeutic range Medications and supplements reviewed No changes in health, diet, medications, or supplements, Denies any signs and symptoms of bleeding or bruising or clotting. Bleeding, bruising, clotting discussed Nutritional guidance given Dose: 2.5MG X 1 DAY/ 5MG X 6 DAYS F/U INR: 1 MONTH Patient verbalizes understanding of instructions given Anti-Coag Initial Assessment Social Hx Patient Tobacco Use Status: Former Tobacco user Tobacco use type: Cigar and Pipe alcohol intake: former Alcohol intake frequency: does not drink Cardiovascular Hx: CAD and Arrhythmias Musculoskeletal Hx: Arthritis Blood Disorder Hx: Hyperlipidemia GI Hx: Diverticulosis Cancer HX: No Psych. 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
== END 2024-10-27 13:51 | disposition home or self-care (01) ==
LOC: HO.ACS 13:25
PROVIDERS: PCP Family Medicine; Visit Provider Internal Medicine
DX: Z79.01 Long term (current) use of anticoagulants (principal)

== ENCOUNTER → 2024-10-27 13:25 | Outpatient (BNVA) | payer MEDICARE, SELFPAY | PROVIDERS: PCP Family Medicine; Visit Provider Internal Medicine | DX: I48.0 Paroxysmal atrial fibrillation (principal); Z79.01 Long term (current) use of anticoagulants; Z51.81 Encounter for therapeutic drug level monitoring | CPT/HCPCS: 85610; 99211 ==

== ENCOUNTER 2024-11-24 13:56 | Outpatient (AMB) | payer MEDICARE, SELFPAY ==
[2024-11-24 14:07] LABS: Prothrombin Time Whole Bld POC 27.8 sec (11.1-13.5); ~PT, ~INR - Anti Coag Clinic 2.3 (0.9-1.1)
--- NOTE | 2024-11-24 14:12 | MHC.OFFVISCO ---
Intake Intake Visit Reasons: Anticoagulation Allergies diltiazem [From Cardizem] Allergy (Intermediate, Verified 11/24/24 14:00) rash Medication List - Last Reconciled 11/24/24 by Maddison Hernandez, CONCEPCION aspirin 81 mg PO DAILY atorvastatin 80 mg PO DAILY carvedilol 25MG 2 TABS PO 2 times a day; must administer with a meal/food metronidazole 0.75% appl topical DAILY multivitamin 1 tab PO DAILY [OCUVITE PO DAILY] warfarin 5 mg See Protocol PO DAILY Nursing Note INR: 2.3 in therapeutic range of 2-3 Medications and supplements reviewed No changes in health, diet, medications, or supplements, Denies any signs and symptoms of bleeding or bruising or clotting. Bleeding, bruising, clotting discussed Nutritional guidance given Dose: 5mg X 6 days and 2.5mg X 1 day F/U INR: 3 weeks Patient verbalizes understanding of instructions given Anti-Coag Initial Assessment Social Hx Patient Tobacco Use Status: Former Tobacco user Tobacco use type: Cigar and Pipe alcohol intake: former Alcohol intake frequency: does not drink Cardiovascular Hx: CAD and Arrhythmias Musculoskeletal Hx: Arthritis Blood Disorder Hx: Hyperlipidemia GI Hx: Diverticulosis Cancer HX: No Psych. 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
== END 2024-11-24 14:13 | disposition home or self-care (01) ==
LOC: HO.ACS 13:56
PROVIDERS: PCP Family Medicine; Visit Provider Internal Medicine
DX: Z79.01 Long term (current) use of anticoagulants (principal)

== ENCOUNTER → 2024-11-24 13:56 | Outpatient (BNVA) | payer MEDICARE, SELFPAY | PROVIDERS: PCP Family Medicine; Visit Provider Internal Medicine | DX: I48.0 Paroxysmal atrial fibrillation (principal); Z79.01 Long term (current) use of anticoagulants; Z51.81 Encounter for therapeutic drug level monitoring | CPT/HCPCS: 85610; 99211 ==

== ENCOUNTER 2024-12-15 13:55 | Outpatient (AMB) | payer MEDICARE, SELFPAY ==
[2024-12-15 14:03] LABS: Prothrombin Time Whole Bld POC 28.6 sec (11.1-13.5); ~PT, ~INR - Anti Coag Clinic 2.4 (0.9-1.1)
--- NOTE | 2024-12-15 14:06 | MHC.OFFVISCO ---
Intake Intake Visit Reasons: Anticoagulation Allergies diltiazem [From Cardizem] Allergy (Intermediate, Verified 12/15/24 13:58) rash Medication List - Last Reconciled 12/15/24 by Maddison Summers RN aspirin 81 mg PO DAILY atorvastatin 80 mg PO DAILY carvedilol 25MG 2 TABS PO 2 times a day; must administer with a meal/food metronidazole 0.75% appl topical DAILY multivitamin 1 tab PO DAILY [OCUVITE PO DAILY] warfarin 5 mg See Protocol PO DAILY Nursing Note Amb to ACS feeling well Medications and supplements reviewed No changes in health, diet, medications, or supplements, Denies any signs and symptoms of bleeding, bruising, clotting. Bleeding, bruising, clotting discussed INR: 2.4 in therapeutic range Dose: continue usual dosing 2.5mg x 1 day and 5mg x 6 days balance greens and reds in diet and be consistent F/U INR: 3 weeks Patient verbalizes understanding of instructions given Anti-Coag Initial Assessment Social Hx Patient Tobacco Use Status: Former Tobacco user Tobacco use type: Cigar and Pipe alcohol intake: former Alcohol intake frequency: does not drink Cardiovascular Hx: CAD and Arrhythmias Musculoskeletal Hx: Arthritis Blood Disorder Hx: Hyperlipidemia GI Hx: Diverticulosis Cancer HX: No Psych. 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
== END 2024-12-15 14:17 | disposition home or self-care (01) ==
LOC: HO.ACS 13:55
PROVIDERS: PCP Family Medicine; Visit Provider Internal Medicine
DX: Z79.01 Long term (current) use of anticoagulants (principal)

== ENCOUNTER → 2024-12-15 13:55 | Outpatient (BNVA) | payer MEDICARE, SELFPAY | PROVIDERS: PCP Family Medicine; Visit Provider Internal Medicine | DX: I48.0 Paroxysmal atrial fibrillation (principal); Z79.01 Long term (current) use of anticoagulants; Z51.81 Encounter for therapeutic drug level monitoring | CPT/HCPCS: 85610; 99211 ==

== ENCOUNTER 2025-01-05 14:02 | Outpatient (AMB) | payer MEDICARE, SELFPAY ==
[2025-01-05 14:16] LABS: Prothrombin Time Whole Bld POC 29.5 sec (11.1-13.5); ~PT, ~INR - Anti Coag Clinic 2.5 (0.9-1.1)
--- NOTE | 2025-01-05 14:17 | MHC.OFFVISCO ---
Intake Intake Visit Reasons: Anticoagulation Allergies diltiazem [From Cardizem] Allergy (Intermediate, Verified 01/05/25 14:11) rash Medication List - Last Reconciled 01/05/25 by Maddison Hernandez, CONCEPCION aspirin 81 mg PO DAILY atorvastatin 80 mg PO DAILY carvedilol 25MG 2 TABS PO 2 times a day; must administer with a meal/food metronidazole 0.75% appl topical DAILY multivitamin 1 tab PO DAILY [OCUVITE PO DAILY] warfarin 5 mg See Protocol PO DAILY Nursing Note INR: 2.5 in therapeutic range of 2-3 Medications and supplements reviewed No changes in health, diet, medications, or supplements, Denies any signs and symptoms of bleeding or bruising or clotting. Bleeding, bruising, clotting discussed Nutritional guidance given Dose: 5mg X 6 days and 2.5mg X 1 day F/U INR: 3 weeks Patient verbalizes understanding of instructions with read back given Anti-Coag Initial Assessment Social Hx Patient Tobacco Use Status: Former Tobacco user Tobacco use type: Cigar and Pipe alcohol intake: former Alcohol intake frequency: does not drink Cardiovascular Hx: CAD and Arrhythmias Musculoskeletal Hx: Arthritis Blood Disorder Hx: Hyperlipidemia GI Hx: Diverticulosis Cancer HX: No Psych. Illness/Depression: No Coding Level of Care Code Est Patient Level 1 Diagnoses Current use of anticoagulant therapy Z79.01 Assessment & Plan Assessment & Plan (1) Current use of anticoagulant therapy: Code(s): Z79.01 - senior living (current) use of anticoagulants Category: Medical
--- OUTSIDE RECORDS SUMMARY | 2025-01-05 15:03 | XMS_ITS | Continuity of Care Document ---
Author Organization [facility] lt Address [address] [place] [address]- Care Team Providers Care Rag Inspector Name Role Phone Grayson Meza MD Primary Care Physician [id number] [address] [place] [address]- Encounter Diagnosis Medicare annual wellness visit, subsequent(Discharge Diagnosis) - 12/23/24 Atrial fibrillation(Discharge Diagnosis) - 12/23/24 Tinea cruris(Discharge Diagnosis) - 12/23/24 Tubular adenoma of colon(Discharge Diagnosis) - 12/23/24 Attending Physician: Grayson Meza MD Encounter Type: Office Visit Allergies, Adverse Reactions, Alerts Substance Criticality Severity Reaction Reaction Severity Status Cardizem Active Immunizations Given and Recorded Vaccine Date Status Refusal Reason pneumococcal 20-valent conjugate vaccine 10/23/24 Recorded influenza virus vaccine, inactivated 10/23/24 Ja rded influenza virus vaccine, inactivated 08/22/23 Ja rded influenza virus vaccine, inactivated 08/01/22 Ja rded influenza virus vaccine, inactivated 09/04/21 Ja rded influenza virus vaccine, inactivated 08/15/20 Give n influenza virus vaccine, inactivated 1 09/08/18 Gi hilary influenza virus vaccine, inactivated 2 09/13/17 Gi hilary influenza virus vaccine, inactivated 3 11/14/16 Re corded SARS-CoV-2(COVID-19)mRNA-LNP vac([id number]) 05/26/24 Recorded SARS-CoV-2(COVID-19)mRNA-LNP vac([id number]) 08/22/23 Recorded RSV vaccine preF3, recombinant 08/22/23 Recorded tetanus-diphtheria toxoids (Td) 4 02/25/23 Given [id number] bivalent booster vax 08/03/22 Recorded zoster vaccine, inactivated 07/27/22 Recorded zoster vaccine, inactivated 05/18/22 Recorded SARS-CoV-2 (COVID-19) mRNA-1273 vaccine 03/09/22 R ecorded SARS-CoV-2 (COVID-19) mRNA-1273 vaccine 09/18/21 R ecorded SARS-CoV-2 (COVID-19) mRNA-1273 vaccine 02/07/21 R ecorded SARS-CoV-2 (COVID-19) mRNA-1273 vaccine 01/10/21 R ecorded pneumococcal 23-valent vaccine 5 11/14/16 Recorded pneumococcal 13-valent vaccine 6 11/19/14 Recorded Zoster Vaccine Live 7 10/06/12 Recorded tetanus/diphtheria/pertussis, acel(Tdap) 8 02/20/10 Recorded 1Result Comment: [09/08/2018] [facility] [id number] 2Result Comment: [09/13/2017] [facility] [id number] REGULAR DOSE GIVEN HIGH DOSE NOT IN SUPPLERY PER DR MEZA 3Location History: [facility] 4Result Comment: [id number] 5Location History: [facility] 6Location History: [facility] 7Location History: [facility] 8Location History: [facility] [employer] Problem List Condition Confirmation Course Effective Dates Status Health St atus Informant Atrial fibrillation Confirmed Active ASHD (arteriosclerotic heart disease) Confirmed Active Obese class I Confirmed Active Tubular adenoma of colon Confirmed 01/03/18 Active Diagnosis Diagnosis Type Effective Dates Health Status Clinical Service Informant Medicare annual wellness visit, subsequent Discharge Diagnosis 12/23/24 Atrial fibrillation Discharge Diagnosis 12/23/24 Tinea cruris Discharge Diagnosis 12/23/24 Tubular adenoma of colon Discharge Diagnosis 12/23/24 Vital Signs Most recent to oldest [Reference Range]: 1 Height 169.3 cm (12/23/24 2:26 PM) Weight 96.2 kg (12/23/24 2:26 PM) Oxygen Saturation [94-100 %] 98 % (12/23/24 2:26 PM) Pulse Rate [55-90 bpm] 72 bpm (12/23/24 2:26 PM) Body Mass Index [18.5-24.99 kg/m2] 33.56 kg/m2 *>HHI* (12/23/24 2:26 PM) Blood Pressure [90-138/55-84 mm Hg] 123/ 81mm Hg (12/23/24 2:26 PM) Mode of Delivery (Oxygen) Room air (12/23/24 2:26 PM) Blood pressure sites Arm, left (12/23/24 2:26 PM) Weight Obtained Via Standing scale (12/23/24 2:26 PM) Social History Social History Type Response Smoking Status Former smoker entered on: 06/28/17 Sex Sex Representation Male (finding) Patient Care team information Care Team Personnel Name: Grayson Meza MD Position: S Physician - Primary Care Member Role: PCP Address: [address] [place] [id number] Telecom: Care Team Related Persons Name: ROSE MARY TENORIO Insurance Providers Guarantor name: KITA TENORIO Health Plan Information #: 1 Payer: NA Member Number: [id number] Policy Number: NA Group Number: [id number] Health Plan Information #: 2 Payer: NA Member Number: [id number] Policy Number: NA Group Number: [id number]
== END 2025-01-05 14:20 | disposition home or self-care (01) ==
LOC: HO.ACS 14:02
PROVIDERS: PCP Family Medicine; Visit Provider Internal Medicine
DX: Z79.01 Long term (current) use of anticoagulants (principal)

== ENCOUNTER → 2025-01-05 14:02 | Outpatient (BNVA) | payer MEDICARE, SELFPAY | PROVIDERS: PCP Family Medicine; Visit Provider Internal Medicine | DX: I48.0 Paroxysmal atrial fibrillation (principal); Z79.01 Long term (current) use of anticoagulants; Z51.81 Encounter for therapeutic drug level monitoring | CPT/HCPCS: 85610; 99211 ==

== ENCOUNTER → 2025-01-26 13:44 | Outpatient (BNVA) | payer MEDICARE, SELFPAY | PROVIDERS: PCP Family Medicine; Visit Provider Internal Medicine | DX: I48.0 Paroxysmal atrial fibrillation (principal); Z79.01 Long term (current) use of anticoagulants; Z51.81 Encounter for therapeutic drug level monitoring | CPT/HCPCS: 85610; 99211 ==

== ENCOUNTER 2025-02-16 14:03 | Outpatient (AMB) | payer MEDICARE, SELFPAY ==
[2025-02-16 14:11] LABS: Prothrombin Time Whole Bld POC 28.8 sec (11.1-13.5); ~PT, ~INR - Anti Coag Clinic 2.4 (0.9-1.1)
--- NOTE | 2025-02-16 14:12 | MHC.OFFVISCO ---
Intake Intake Visit Reasons: Anticoagulation Allergies diltiazem [From Cardizem] Allergy (Intermediate, Verified 02/16/25 14:04) rash Medication List - Last Reconciled 02/16/25 by Lor Florence RN aspirin 81 mg PO DAILY atorvastatin 80 mg PO DAILY carvedilol 25MG 2 TABS PO 2 times a day; must administer with a meal/food metronidazole 0.75% appl topical DAILY multivitamin 1 tab PO DAILY [OCUVITE PO DAILY] warfarin 5 mg See Protocol PO DAILY Nursing Note INR: 2.4 in therapeutic range Medications and supplements reviewed No changes in health, diet, medications, or supplements, Denies any signs and symptoms of bleeding or bruising or clotting. Bleeding, bruising, clotting discussed Nutritional guidance given Dose: 2.5MG X 1 DAY/ 5MG X 6 DAYS F/U INR: 4 WEEKS Patient verbalizes understanding of instructions given WITH READ BACK Anti-Coag Initial Assessment Social Hx Patient Tobacco Use Status: Former Tobacco user Tobacco use type: Cigar and Pipe alcohol intake: former Alcohol intake frequency: does not drink Cardiovascular Hx: CAD and Arrhythmias Musculoskeletal Hx: Arthritis Blood Disorder Hx: Hyperlipidemia GI Hx: Diverticulosis Cancer HX: No Psych. 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
== END 2025-02-16 14:26 | disposition home or self-care (01) ==
LOC: HO.ACS 14:03
PROVIDERS: PCP Family Medicine; Visit Provider Internal Medicine Medical Oncology
DX: Z79.01 Long term (current) use of anticoagulants (principal)

== ENCOUNTER → 2025-02-16 14:03 | Outpatient (BNVA) | payer MEDICARE, SELFPAY | PROVIDERS: PCP Family Medicine; Visit Provider Internal Medicine Medical Oncology | DX: I48.0 Paroxysmal atrial fibrillation (principal); Z51.81 Encounter for therapeutic drug level monitoring; Z79.01 Long term (current) use of anticoagulants | CPT/HCPCS: 85610; 99211 ==

== ENCOUNTER 2025-03-16 13:53 | Outpatient (AMB) | payer MEDICARE, SELFPAY ==
[2025-03-16 14:24] LABS: Prothrombin Time Whole Bld POC 30.7 sec (11.1-13.5); ~PT, ~INR - Anti Coag Clinic 2.6 (0.9-1.1)
--- NOTE | 2025-03-16 14:33 | MHC.OFFVISCO ---
Intake Intake Visit Reasons: Anticoagulation Allergies diltiazem [From Cardizem] Allergy (Intermediate, Verified 03/16/25 13:57) rash Medication List - Last Reconciled 03/16/25 by Maddison Hernandez, RN aspirin 81 mg PO DAILY atorvastatin 80 mg PO DAILY carvedilol 25MG 2 TABS PO 2 times a day; must administer with a meal/food metronidazole 0.75% appl topical DAILY multivitamin 1 tab PO DAILY [OCUVITE PO DAILY] warfarin 5 mg See Protocol PO DAILY Nursing Note INR: 2.6 in therapeutic range of 2-3 Medications and supplements reviewed No changes in health, diet, medications, or supplements, Denies any signs and symptoms of bleeding or bruising or clotting. Bleeding, bruising, clotting discussed Nutritional guidance given Dose: 5mg X 6 days and 2.5mg X 1 day () F/U INR: 4 weeks Patient verbalizes understanding of instructions given Anti-Coag Initial Assessment Social Hx Patient Tobacco Use Status: Former Tobacco user Tobacco use type: Cigar and Pipe alcohol intake: former Alcohol intake frequency: does not drink Cardiovascular Hx: CAD and Arrhythmias Musculoskeletal Hx: Arthritis Blood Disorder Hx: Hyperlipidemia GI Hx: Diverticulosis Cancer HX: No Psych. 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
== END 2025-03-16 14:35 | disposition home or self-care (01) ==
LOC: HO.ACS 13:53
PROVIDERS: PCP Family Medicine; Visit Provider Internal Medicine Medical Oncology
DX: Z79.01 Long term (current) use of anticoagulants (principal)

== ENCOUNTER → 2025-03-16 13:53 | Outpatient (BNVA) | payer MEDICARE, SELFPAY | PROVIDERS: PCP Family Medicine; Visit Provider Internal Medicine Medical Oncology | DX: I48.0 Paroxysmal atrial fibrillation (principal); Z79.01 Long term (current) use of anticoagulants; Z51.81 Encounter for therapeutic drug level monitoring | CPT/HCPCS: 85610; 99211 ==

== ENCOUNTER 2025-04-13 14:36 | Outpatient (AMB) | payer MEDICARE, SELFPAY ==
[2025-04-13 14:48] LABS: Prothrombin Time Whole Bld POC 27.4 sec (11.1-13.5); ~PT, ~INR - Anti Coag Clinic 2.3 (0.9-1.1)
--- NOTE | 2025-04-13 14:49 | MHC.OFFVISCO ---
Intake Intake Visit Reasons: Anticoagulation Allergies diltiazem [From Cardizem] Allergy (Intermediate, Verified 04/13/25 14:41) rash Medication List - Last Reconciled 04/13/25 by Maddison Hernandez RN aspirin 81 mg PO DAILY atorvastatin 80 mg PO DAILY carvedilol 25MG 2 TABS PO 2 times a day; must administer with a meal/food metronidazole 0.75% appl topical DAILY multivitamin 1 tab PO DAILY [OCUVITE PO DAILY] warfarin 5 mg See Protocol PO DAILY Nursing Note INR: 2.3 in therapeutic range of 2-3 Medications and supplements reviewed No changes in health, diet, medications, or supplements, Denies any signs and symptoms of bleeding or bruising or clotting. Bleeding, bruising, clotting discussed Nutritional guidance given Dose: 5mg X 6 days and 2.5mg X 1 day () F/U INR: 4 weeks Patient verbalizes understanding of instructions given Anti-Coag Initial Assessment Social Hx Patient Tobacco Use Status: Former Tobacco user Tobacco use type: Cigar and Pipe alcohol intake: former Alcohol intake frequency: does not drink Cardiovascular Hx: CAD and Arrhythmias Musculoskeletal Hx: Arthritis Blood Disorder Hx: Hyperlipidemia GI Hx: Diverticulosis Cancer HX: No Psych. 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
== END 2025-04-13 14:51 | disposition home or self-care (01) ==
LOC: HO.ACS 14:36
PROVIDERS: PCP Family Medicine; Visit Provider Internal Medicine Medical Oncology
DX: Z79.01 Long term (current) use of anticoagulants (principal)

== ENCOUNTER → 2025-04-13 14:36 | Outpatient (BNVA) | payer MEDICARE, SELFPAY | PROVIDERS: PCP Family Medicine; Visit Provider Internal Medicine Medical Oncology | DX: I48.0 Paroxysmal atrial fibrillation (principal); Z79.01 Long term (current) use of anticoagulants; Z51.81 Encounter for therapeutic drug level monitoring | CPT/HCPCS: 85610; 99211 ==

== ENCOUNTER 2025-05-11 13:55 | Outpatient (AMB) | payer MEDICARE, SELFPAY ==
[2025-05-11 14:03] LABS: Prothrombin Time Whole Bld POC 26.5 sec (11.1-13.5); ~PT, ~INR - Anti Coag Clinic 2.2 (0.9-1.1)
--- NOTE | 2025-05-11 14:07 | MHC.OFFVISCO ---
Intake Intake Visit Reasons: Anticoagulation Allergies diltiazem (From Cardizem) Allergy (Intermediate, Verified 05/11/25 13:57) rash Medication List - Last Reconciled 05/11/25 by Lor Florence RN aspirin 81 mg PO DAILY atorvastatin 80 mg PO DAILY carvedilol 25MG 2 TABS PO 2 times a day; must administer with a meal/food metronidazole 0.75% appl topical DAILY multivitamin 1 tab PO DAILY nystatin topical BID [OCUVITE PO DAILY] warfarin 5 mg See Protocol PO DAILY Nursing Note INR: 2.2 in therapeutic range Medications and supplements reviewed No changes in health, diet, medications, or supplements, Denies any signs and symptoms of bleeding or bruising or clotting. Bleeding, bruising, clotting discussed Nutritional guidance given Dose: 2.5MG X 1 DAY/ 5MG X 6 DAYS F/U INR: 1 MONTH Patient verbalizes understanding of instructions given Anti-Coag Initial Assessment Social Hx Patient Tobacco Use Status: Former Tobacco user Tobacco use type: Cigar and Pipe alcohol intake: former Alcohol intake frequency: does not drink Cardiovascular Hx: CAD and Arrhythmias Musculoskeletal Hx: Arthritis Blood Disorder Hx: Hyperlipidemia GI Hx: Diverticulosis Cancer HX: No Psych. Illness/Depression: No Questionnaires HAS-BLED Does the patient had uncontrolled Hypertension?: No Does the patient have renal disease?: No Does the patient have liver disease?: No Does the patient have a history of stroke?: No Has the patient had major bleeding or predisposition to bleeding?: No Does the patient have labile INRs?: No Is the patient over 65 years of age?: Yes Is the patient on medications that gives them a predisposition to bleeding?: Yes Does the patient use alcohol?: No HAS-BLED Score: 2 CHADSVASC Age: 75 or over Gender: Male Does the patient have a history of CHF?: No Does the patient have a history of Hypertension?: No Does the patient have a history of Stroke/TIA/Thromboembolism?: No Does the patient have a history of Vascular Disease (prior NM, PAD or aortic plaque)?: Yes (ON CHOLESTEROL MED , CAD AND A CABG ) Does the patient have a history of Diabetes?: No CHADS VACS Score: 3 Radha Prediction Score Rsk VTE Active Cancer: No Previous VTE, excluding superficial vein thrombosis: No Reduced mobility: No Already known Thrombophilic Condition: No (s/p covid 05/18/22) With-in last month Trauma and/or Surgery: No Elderly 70 year or older: Yes Heart and/or Respiratory Failure: No Acute Myocardial infarction and/or Ischemic Stroke: No Acute Infection and/or Rheumatologic Disorder: No Obesity (BMI 30 or greater): No Ongoing Hormonal Treatment: No Score: 1 Radha Score less than 4; Low Risk of VTE Radha Score 4 or greater; High Risk of VTE Coding Level of Care Code Est Patient Level 1 Diagnoses Current use of anticoagulant therapy Z79.01 Results AMB INR Fingerstick AMB INR Fingerstick 2.2 Last Edit by Lor Florence RN on 05/11/25 14:06 MANUAL ENTRY Assessment & Plan Assessment & Plan (1) Current use of anticoagulant therapy: 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
== END 2025-05-11 14:16 | disposition home or self-care (01) ==
LOC: HO.ACS 13:55
PROVIDERS: PCP Family Medicine; Visit Provider Internal Medicine Medical Oncology
DX: Z79.01 Long term (current) use of anticoagulants (principal)

== ENCOUNTER → 2025-05-11 13:55 | Outpatient (BNVA) | payer MEDICARE, SELFPAY | PROVIDERS: PCP Family Medicine; Visit Provider Internal Medicine Medical Oncology | DX: I48.0 Paroxysmal atrial fibrillation (principal); Z79.01 Long term (current) use of anticoagulants; Z51.81 Encounter for therapeutic drug level monitoring | CPT/HCPCS: 85610; 99211 ==

== ENCOUNTER 2025-06-07 13:59 | Outpatient (AMB) | payer MEDICARE, SELFPAY ==
[2025-06-07 14:07] LABS: Prothrombin Time Whole Bld POC 25.8 sec (11.1-13.5); ~PT, ~INR - Anti Coag Clinic 2.2 (0.9-1.1)
--- NOTE | 2025-06-07 14:10 | MHC.OFFVISCO ---
Intake Intake Visit Reasons: Anticoagulation Allergies diltiazem (From Cardizem) Allergy (Intermediate, Verified 06/07/25 14:00) rash Medication List - Last Reconciled 06/07/25 by Maddison Hernandez, RN aspirin 81 mg PO DAILY atorvastatin 80 mg PO DAILY carvedilol 25MG 2 TABS PO 2 times a day; must administer with a meal/food metronidazole 0.75% appl topical DAILY multivitamin 1 tab PO DAILY nystatin topical BID [OCUVITE PO DAILY] warfarin 5 mg See Protocol PO DAILY Nursing Note INR: 2.2 in therapeutic range of 2-3 Medications and supplements reviewed No changes in health, diet, medications, or supplements, Denies any signs and symptoms of bleeding or bruising or clotting. Bleeding, bruising, clotting discussed Nutritional guidance given Dose: 5mg X 6 days and 2.5mg X1 day F/U INR: 4 weeks Patient verbalizes understanding of instructions given Anti-Coag Initial Assessment Social Hx Patient Tobacco Use Status: Former Tobacco user Tobacco use type: Cigar and Pipe alcohol intake: former Alcohol intake frequency: does not drink Cardiovascular Hx: CAD and Arrhythmias Musculoskeletal Hx: Arthritis Blood Disorder Hx: Hyperlipidemia GI Hx: Diverticulosis Cancer HX: No Psych. 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
== END 2025-06-07 14:12 | disposition home or self-care (01) ==
LOC: HO.ACS 13:59
PROVIDERS: PCP Family Medicine; Visit Provider Internal Medicine Medical Oncology
DX: Z79.01 Long term (current) use of anticoagulants (principal)

== ENCOUNTER → 2025-06-07 13:59 | Outpatient (BNVA) | payer MEDICARE, SELFPAY | PROVIDERS: PCP Family Medicine; Visit Provider Internal Medicine Medical Oncology | DX: I48.0 Paroxysmal atrial fibrillation (principal); Z79.01 Long term (current) use of anticoagulants; Z51.81 Encounter for therapeutic drug level monitoring | CPT/HCPCS: 85610; 99211 ==

== ENCOUNTER 2025-07-05 13:59 | Outpatient (AMB) | payer MEDICARE, SELFPAY ==
--- NOTE | 2025-07-05 14:03 | MHC.OFFVISCO ---
Intake Intake Visit Reasons: Anticoagulation Allergies diltiazem (From Cardizem) Allergy (Intermediate, Verified 07/05/25 14:00) rash Medication List - Last Reconciled 07/05/25 by Aleta Weber RN aspirin 81 mg PO DAILY atorvastatin 80 mg PO DAILY carvedilol 25MG 2 TABS PO 2 times a day; must administer with a meal/food metronidazole 0.75% appl topical DAILY multivitamin 1 tab PO DAILY nystatin topical BID [OCUVITE PO DAILY] warfarin 5 mg See Protocol PO DAILY Nursing Note INR 1.7- out of therapeutic range 2-3 Medications and supplements reviewed Patient status: no c.o , denies missed dose Medications or supplements: no changes Diet: had more salads Denies any signs and symptoms of bleeding or clotting or unusual bruising Bleeding, bruising, clotting discussed Nutritional guidance given: no greens for 2 days, eat reds to raise Dose: already took warfarin this am- increase tomm to 5mg then cont reg 5mg x 6, 2.5mg x 1 F/U INR Date : 2 weeks?? Patient verbalizing understanding of instructions given. Anti-Coag Initial Assessment Social Hx Patient Tobacco Use Status: Former Tobacco user Tobacco use type: Cigar and Pipe alcohol intake: former Alcohol intake frequency: does not drink Cardiovascular Hx: CAD and Arrhythmias Musculoskeletal Hx: Arthritis Blood Disorder Hx: Hyperlipidemia GI Hx: Diverticulosis Cancer HX: No Psych. Illness/Depression: No Coding Level of Care Code Est Patient Level 1 Diagnoses Current use of anticoagulant therapy Z79.01 Assessment & Plan Assessment & Plan (1) Current use of anticoagulant therapy: Code(s): Z79.01 - USP (current) use of anticoagulants Category: Medical
[2025-07-05 14:04] LABS: Prothrombin Time Whole Bld POC 20.8 sec (11.1-13.5); ~PT, ~INR - Anti Coag Clinic 1.7 (0.9-1.1)
== END 2025-07-05 14:10 | disposition home or self-care (01) ==
LOC: HO.ACS 13:59
PROVIDERS: PCP Family Medicine; Visit Provider Internal Medicine Medical Oncology
DX: Z79.01 Long term (current) use of anticoagulants (principal)

== ENCOUNTER → 2025-07-05 13:59 | Outpatient (BNVA) | payer MEDICARE, SELFPAY | PROVIDERS: PCP Family Medicine; Visit Provider Internal Medicine Medical Oncology | DX: I48.0 Paroxysmal atrial fibrillation (principal); Z79.01 Long term (current) use of anticoagulants; Z51.81 Encounter for therapeutic drug level monitoring | CPT/HCPCS: 85610; 99211 ==

== ENCOUNTER 2025-07-20 14:00 | Outpatient (AMB) | payer MEDICARE, SELFPAY ==
--- OUTSIDE RECORDS SUMMARY | 2025-07-14 23:59 | XMS_ITS | Continuity of Care Document ---
[facility] Address [address] [place] [address]- Care Team Providers Care Pump Rebuilder Name Role Phone Grayson Meza MD Primary [id number] - 07/14/25 [facility] Adult [address] [place] [address]- Encounter Diagnosis ASHD (arteriosclerotic heart disease)(Discharge Diagnosis) - 07/14/25 Atrial fibrillation(Discharge Diagnosis) - 07/14/25 Tubular adenoma of colon(Discharge Diagnosis) - 07/14/25 Attending Physician: Grayson Meza MD Encounter Type: [...] vaccine, inactivated 3 11/14/16 Re corded SARS-CoV-2(COVID-19)mRNA-LNP vac(ptn148) 05/26/24 Recorded SARS-CoV-2(COVID-19)mRNA-LNP vac([id number]) 08/22/23 Recorded RSV vaccine preF3, recombinant 08/22/23 Recorded tetanus-diphtheria toxoids (Td) 4 02/25/23 Given [id number] bivalent booster vax 08/03/22 Recorded zoster vaccine, [...] acel(Tdap) 8 02/20/10 Recorded 1Result Comment: [09/08/2018] [facility] [id number] 2Result Comment: [09/13/2017] [facility] [id number] REGULAR DOSE GIVEN HIGH DOSE NOT IN SUPPLERY PER DR MEZA 3Location History: [facility] 4Result Comment: [id number] 5Location History: [facility] 6Location History: [facility] 7Location History: [facility] 8Location History: [facility] Medications Align = 4 mg, By Mouth, Daily, 0 Refills, Maintenance, 04/09/25 12:57:00 PM EDT, Partial fill upon patientrequest if the prescription is for a schedule II opioid drug. Start Date: 04/09/25 Status: Ordered Medication Dispense Status: Completed Total Allowed Fills: 1 Fills Dispensed: 0 aspirin 81 mg oral delayed release tablet 81 mg, 1, tablet, By Mouth, Daily, # 30 tablet, Refills 0, Maintenance, 08/19/20 9:12:00 AM EDT Start Date: 08/19/20 Status: Ordered Medication Dispense Status: Completed Quantity: 30.0 Unit: tablet Total Allowed Fills: 1 Fills Dispensed: 0 atorvastatin 80 mg oral tablet 1 tablet = 80 mg, By Mouth, Daily, # 30 tablet, 0 Refills, Maintenance, Tablet Start Date: 06/28/17 Status: Ordered Medication Dispense Status: Completed Quantity: 30.0 Unit: tablet Total Allowed Fills: 1 Fills Dispensed: 0 Calcium Carbonate By Mouth, 0 Refills, Maintenance, 09/13/17 10:47:10 AM EDT Start Date: 09/13/17 Status: Ordered Medication Dispense Status: Completed Total Allowed Fills: 1 Fills Dispensed: 0 carvedilol 25 mg oral tablet 50 mg, 2, tablet, By Mouth, 2 times a day, # 120 tablet, Refills 0, Tot. Refills 0, Maintenance, 06/28/17 12:12:01 PM EDT, Do Not Route Start Date: 06/28/17 Status: Ordered Medication Dispense Status: Completed Quantity: 120.0 Unit: tablet Total Allowed Fills: 1 Fills Dispensed: 0 Vitamin D3 oral tablet 2 tablet = 800 International_Units, By Mouth, Daily, 0 Refills, Maintenance, 09/13/17 10:47:18 AM EDT Start Date: 09/13/17 Status: Ordered Medication Dispense Status: Completed Total Allowed Fills: 1 Fills Dispensed: 0 warfarin 5 mg oral tablet 1 tablet = 5 mg, By Mouth, Daily, DOSE MAY CHANGE PENDING INR RESULTS, # 90 tablet, 0 Refills, Maintenance, 07/23/17 3:30:10 PM EDT, Tablet, [id number] Start Date: 07/23/17 Status: Ordered Medication Dispense Status: Completed Quantity: 90.0 Unit: tablet Total Allowed Fills: 1 Fills Dispensed: 0 Problem List Condition Confirmation Course Effective Dates Status Health St atus Informant Atrial fibrillation Confirmed Active ASHD (arteriosclerotic heart disease) Confirmed Active Obese class I Confirmed Active Scrotal pain Confirmed Active Tubular adenoma of colon Confirmed 01/03/18 Active Diagnosis Diagnosis Type Effective Dates Health Status Clinical Service Informant ASHD (arteriosclerotic heart disease) Discharge Diagnosis 07/14/25 Atrial fibrillation Discharge Diagnosis 07/14/25 Tubular adenoma of colon Discharge Diagnosis 07/14/25 Social History Social History Type Response Smoking Status Former smoker entered on: 06/28/17 Sex Sex Representation Male (finding) Patient Care team information Care Team Personnel Name: Grayson Meza MD Position: S Physician - Primary Care Member Role: PCP Address: [address] [place] [address]- Telecom: Care Team Related Persons Name: ROSE MARY TENORIO Insurance Providers Guarantor name: KITA TENORIO Health Plan Information #: 1 Payer: [employer] PPO Payer Identifier: NA Member Number: [id number] Group Number: [id number] Subscriber Identifier: [id number] Relationship to Subscriber: self Coverage Type: Medicare PPO Coverage Verification Date: NA Telecom: NA Address: NA
[2025-07-20 14:14] LABS: Prothrombin Time Whole Bld POC 22.5 sec (11.1-13.5); ~PT, ~INR - Anti Coag Clinic 1.9 (0.9-1.1)
--- NOTE | 2025-07-20 14:18 | MHC.OFFVISCO ---
Intake Intake Visit Reasons: Anticoagulation Allergies diltiazem (From Cardizem) Allergy (Intermediate, Verified 07/20/25 14:08) rash Medication List - Last Reconciled 07/20/25 by Maddison Hernandez, CONCEPCION aspirin 81 mg PO DAILY atorvastatin 80 mg PO DAILY carvedilol 25MG 2 TABS PO 2 times a day; must administer with a meal/food metronidazole 0.75% appl topical DAILY multivitamin 1 tab PO DAILY nystatin topical BID [OCUVITE PO DAILY] warfarin 5 mg See Protocol PO DAILY Nursing Note INR: 1.9 out of therapeutic range of 2-3 Medications and supplements reviewed Patient status: well Medications or supplements: no changes Diet: usual diet for pt. He has not reduced greens intake after last INR was 1.7. Usual diet continued and dose was increased. Denies any signs and symptoms of bleeding or clotting or unusual bruising Bleeding, bruising, clotting discussed Nutritional guidance given: to focus on foods that raise the INR. Pt states he will have more corn and watermelon. Dose: today's dose increased to 5mg (usual 2.5mg) then 5mg daily F/U INR Date: 2 weeks?? Patient verbalizing understanding of instructions given. Anti-Coag Initial Assessment Social Hx Patient Tobacco Use Status: Former Tobacco user Tobacco use type: Cigar and Pipe alcohol intake: former Alcohol intake frequency: does not drink Cardiovascular Hx: CAD and Arrhythmias Musculoskeletal Hx: Arthritis Blood Disorder Hx: Hyperlipidemia GI Hx: Diverticulosis Cancer HX: No Psych. 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
== END 2025-07-20 14:25 | disposition home or self-care (01) ==
LOC: HO.ACS 14:00
PROVIDERS: PCP Family Medicine; Visit Provider Internal Medicine Medical Oncology
DX: Z79.01 Long term (current) use of anticoagulants (principal)

== ENCOUNTER → 2025-07-20 14:00 | Outpatient (BNVA) | payer MEDICARE, SELFPAY | PROVIDERS: PCP Family Medicine; Visit Provider Internal Medicine Medical Oncology | DX: Z79.01 Long term (current) use of anticoagulants (principal) | CPT/HCPCS: 85610; 99211 ==

== ENCOUNTER 2025-08-02 14:15 | Outpatient (AMB) | payer MEDICARE, SELFPAY ==
--- NOTE | 2025-08-02 14:24 | MHC.OFFVISCO ---
Intake Intake Visit Reasons: Anticoagulation Allergies diltiazem (From Cardizem) Allergy (Intermediate, Verified 08/02/25 14:18) rash Medication List - Last Reconciled 08/02/25 by Lor Florence RN aspirin 81 mg PO DAILY atorvastatin 80 mg PO DAILY carvedilol 25MG 2 TABS PO 2 times a day; must administer with a meal/food metronidazole 0.75% appl topical DAILY multivitamin 1 tab PO DAILY nystatin topical BID [OCUVITE PO DAILY] warfarin 5 mg See Protocol PO DAILY Nursing Note INR: 2.3 in therapeutic range Medications and supplements reviewed No changes in health, diet, medications, or supplements, Denies any signs and symptoms of bleeding or bruising or clotting. Bleeding, bruising, clotting discussed Nutritional guidance given Dose: 2.5mg x 1 day/ 5mg x 6 days F/U INR: 4 weeks Patient verbalizes understanding of instructions given Anti-Coag Initial Assessment Social Hx Patient Tobacco Use Status: Former Tobacco user Tobacco use type: Cigar and Pipe alcohol intake: former Alcohol intake frequency: does not drink Cardiovascular Hx: CAD and Arrhythmias Musculoskeletal Hx: Arthritis Blood Disorder Hx: Hyperlipidemia GI Hx: Diverticulosis Cancer HX: No Psych. 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
[2025-08-02 14:25] LABS: Prothrombin Time Whole Bld POC 27.6 sec (11.1-13.5); ~PT, ~INR - Anti Coag Clinic 2.3 (0.9-1.1)
== END 2025-08-02 14:44 | disposition home or self-care (01) ==
LOC: HO.ACS 14:15
PROVIDERS: PCP Family Medicine; Visit Provider Internal Medicine Medical Oncology
DX: Z79.01 Long term (current) use of anticoagulants (principal)

== ENCOUNTER → 2025-08-02 14:15 | Outpatient (BNVA) | payer MEDICARE, SELFPAY | PROVIDERS: PCP Family Medicine; Visit Provider Internal Medicine Medical Oncology | DX: I48.0 Paroxysmal atrial fibrillation (principal); Z79.01 Long term (current) use of anticoagulants; Z51.81 Encounter for therapeutic drug level monitoring | CPT/HCPCS: 85610; 99211 ==

== ENCOUNTER 2025-08-31 14:20 | Outpatient (AMB) | payer MEDICARE, SELFPAY ==
[2025-08-31 14:28] LABS: Prothrombin Time Whole Bld POC 27.8 sec (11.1-13.5); ~PT, ~INR - Anti Coag Clinic 2.3 (0.9-1.1)
--- NOTE | 2025-08-31 14:35 | MHC.OFFVISCO ---
Intake Intake Visit Reasons: Anticoagulation Allergies diltiazem (From Cardizem) Allergy (Intermediate, Verified 08/31/25 14:22) rash Medication List - Last Reconciled 08/31/25 by Lor Florence RN aspirin 81 mg PO DAILY atorvastatin 80 mg PO DAILY carvedilol 25MG 2 TABS PO 2 times a day; must administer with a meal/food metronidazole 0.75% appl topical DAILY multivitamin 1 tab PO DAILY nystatin topical BID [OCUVITE PO DAILY] warfarin 5 mg See Protocol PO DAILY Nursing Note INR: 2.3 in therapeutic range Medications and supplements reviewed Pt just returned from vacation - he was able to maintain his INR with diet changes and walking more No changes in health, medications, or supplements, Denies any signs and symptoms of bleeding or bruising or clotting. Bleeding, bruising, clotting discussed Nutritional guidance given - review food list during season changes, holidays and special events Dose: 2.5mg x 1 day/ 5mg x 6 days F/U INR: 1 month Patient verbalizes understanding of instructions given Anti-Coag Initial Assessment Social Hx Patient Tobacco Use Status: Former Tobacco user Tobacco use type: Cigar and Pipe alcohol intake: former Alcohol intake frequency: does not drink Cardiovascular Hx: CAD and Arrhythmias Musculoskeletal Hx: Arthritis Blood Disorder Hx: Hyperlipidemia GI Hx: Diverticulosis Cancer HX: No Psych. 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
== END 2025-08-31 14:38 | disposition home or self-care (01) ==
LOC: HO.ACS 14:20
PROVIDERS: PCP Family Medicine; Visit Provider Internal Medicine Medical Oncology
DX: Z79.01 Long term (current) use of anticoagulants (principal)

== ENCOUNTER → 2025-08-31 14:20 | Outpatient (BNVA) | payer MEDICARE, SELFPAY | PROVIDERS: PCP Family Medicine; Visit Provider Internal Medicine Medical Oncology | DX: I48.0 Paroxysmal atrial fibrillation (principal); Z79.01 Long term (current) use of anticoagulants; Z51.81 Encounter for therapeutic drug level monitoring | CPT/HCPCS: 85610; 99211 ==

== ENCOUNTER 2025-09-21 13:20 | Outpatient (AMB) | payer MEDICARE, SELFPAY ==
[2025-09-21 13:59] LABS: Prothrombin Time Whole Bld POC 19.9 sec (11.1-13.5); ~PT, ~INR - Anti Coag Clinic 1.7 (0.9-1.1)
--- NOTE | 2025-09-21 14:03 | MHC.OFFVISCO ---
Intake Intake Visit Reasons: Anticoagulation Allergies diltiazem (From Cardizem) Allergy (Intermediate, Verified 09/21/25 13:54) rash Medication List - Last Reconciled 09/21/25 by Maddison Hernandez, CONCEPCION aspirin 81 mg PO DAILY atorvastatin 80 mg PO DAILY carvedilol 25MG 2 TABS PO 2 times a day; must administer with a meal/food metronidazole 0.75% appl topical DAILY multivitamin 1 tab PO DAILY nystatin topical BID [OCUVITE PO DAILY] warfarin 5 mg See Protocol PO DAILY Nursing Note INR: 1.7 out of therapeutic range of 2-3 Medications and supplements reviewed Patient status: pt states he bit his tongue approx 10 days ago while on vacation in [place], [place] requiring a visit to the ER. Tongue would not stop bleeding. Pt held pressure on the tongue and no sutures needed. States his INR in the ER was 2.7. He also had to hold the warfarin X 3 days. When he restarted the med, he started at the usual dose for that day. Medications or supplements: no changes Diet: usual diet for pt Denies any signs and symptoms of bleeding or clotting or unusual bruising Bleeding, bruising, clotting discussed Nutritional guidance given: avoid greens X 2 days Dose: increase today's dose to 5mg (usual 2.5mg) then 5mg X 6 days and 2.5mg X 1 day F/U INR Date: 10/19/25?? Patient verbalizing understanding of instructions with read back given. Anti-Coag Initial Assessment Social Hx Patient Tobacco Use Status: Former Tobacco user Tobacco use type: Cigar and Pipe alcohol intake: former Alcohol intake frequency: does not drink Cardiovascular Hx: CAD and Arrhythmias Musculoskeletal Hx: Arthritis Blood Disorder Hx: Hyperlipidemia GI Hx: Diverticulosis Cancer HX: No Psych. 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
== END 2025-09-21 14:16 | disposition home or self-care (01) ==
LOC: HO.ACS 13:20
PROVIDERS: PCP Family Medicine; Visit Provider Internal Medicine Medical Oncology
DX: Z79.01 Long term (current) use of anticoagulants (principal)

== ENCOUNTER → 2025-09-21 13:20 | Outpatient (BNVA) | payer MEDICARE, SELFPAY | PROVIDERS: PCP Family Medicine; Visit Provider Internal Medicine Medical Oncology | DX: I48.0 Paroxysmal atrial fibrillation (principal); Z79.01 Long term (current) use of anticoagulants; Z51.81 Encounter for therapeutic drug level monitoring | CPT/HCPCS: 85610; 99211 ==

== ENCOUNTER 2025-10-19 13:48 | Outpatient (AMB) | payer MEDICARE, SELFPAY ==
--- NOTE | 2025-10-19 14:02 | MHC.OFFVISCO ---
Intake Intake Visit Reasons: Anticoagulation Allergies diltiazem (From Cardizem) Allergy (Intermediate, Verified 09/21/25 13:54) rash Nursing Note INR: 2.5 in therapeutic range- tongue is healed Medications and supplements reviewed No changes in health, diet, medications, or supplements, Denies any signs and symptoms of bleeding or bruising or clotting. Bleeding, bruising, clotting discussed Nutritional guidance given Dose: 2.5mg x 1 day/ 5mg x 6 days F/U INR: 4 weeks Patient verbalizes understanding of instructions given Anti-Coag Initial Assessment Social Hx Patient Tobacco Use Status: Former Tobacco user Tobacco use type: Cigar and Pipe alcohol intake: former Alcohol intake frequency: does not drink Cardiovascular Hx: CAD and Arrhythmias Musculoskeletal Hx: Arthritis Blood Disorder Hx: Hyperlipidemia GI Hx: Diverticulosis Cancer HX: No Psych. Illness/Depression: No Coding Level of Care Code Est Patient Level 1 Diagnoses Current use of anticoagulant therapy Z79.01 Results AMB INR Fingerstick AMB INR Fingerstick 2.5 Last Edit by Lor Florence RN on 10/19/25 13:57 manual entry Assessment & Plan Assessment & Plan (1) Current use of anticoagulant therapy: Code(s): Z79.01 - senior care (current) use of anticoagulants Category: Medical
[2025-10-21 06:37] LABS: Prothrombin Time Whole Bld POC 29.7 sec (11.1-13.5); ~PT, ~INR - Anti Coag Clinic 2.5 (0.9-1.1)
== END 2025-10-19 14:04 | disposition home or self-care (01) ==
LOC: HO.ACS 13:48
PROVIDERS: PCP Family Medicine; Visit Provider Internal Medicine Medical Oncology
DX: Z79.01 Long term (current) use of anticoagulants (principal)

== ENCOUNTER → 2025-10-19 13:48 | Outpatient (BNVA) | payer MEDICARE, SELFPAY | PROVIDERS: PCP Family Medicine; Visit Provider Internal Medicine Medical Oncology | DX: I48.0 Paroxysmal atrial fibrillation (principal); Z51.81 Encounter for therapeutic drug level monitoring; Z79.01 Long term (current) use of anticoagulants | CPT/HCPCS: 85610; 99211 ==

== ENCOUNTER 2025-11-16 13:55 | Outpatient (AMB) | payer MEDICARE, SELFPAY ==
[2025-11-16 14:10] LABS: Prothrombin Time Whole Bld POC 24.5 sec (11.1-13.5); ~PT, ~INR - Anti Coag Clinic 2.0 (0.9-1.1)
--- NOTE | 2025-11-16 14:24 | MHC.OFFVISCO ---
Intake Intake Visit Reasons: Anticoagulation Allergies diltiazem (From Cardizem) Allergy (Intermediate, Verified 11/16/25 14:16) rash Medication List - Last Reconciled 11/16/25 by Lor Florence RN aspirin 81 mg PO DAILY atorvastatin 80 mg PO DAILY carvedilol 25MG 2 TABS PO 2 times a day; must administer with a meal/food metronidazole 0.75% appl topical DAILY multivitamin 1 tab PO DAILY nystatin topical BID [OCUVITE PO DAILY] warfarin 5 mg See Protocol PO DAILY Nursing Note INR: 2.0 in therapeutic range Medications and supplements reviewed No changes in health, diet, medications, or supplements, Denies any signs and symptoms of bleeding or bruising or clotting. Bleeding, bruising, clotting discussed Nutritional guidance given Dose: 2.5mg x 1 day/ 5mg x 6 days F/U INR: 1 month Patient verbalizes understanding of instructions given Anti-Coag Initial Assessment Social Hx Patient Tobacco Use Status: Former Tobacco user Tobacco use type: Cigar and Pipe alcohol intake: former Alcohol intake frequency: does not drink Cardiovascular Hx: CAD and Arrhythmias Musculoskeletal Hx: Arthritis Blood Disorder Hx: Hyperlipidemia GI Hx: Diverticulosis Cancer HX: No Psych. 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
--- OUTSIDE RECORDS SUMMARY | 2025-11-16 17:44 | XMS_ITS | Encounter Summary ---
Author Organization [facility] Address [address] [place] [address] Care Team Providers Care Machine Stuffer Name Role Phone Gurvinder Dominguez MD Primary Care Provider Ric Hidalgo MD Primary Care Provider [phone] Grayson Meza Primary Care Provider [phone] Grayson Meza Unavailable [phone] Encounter Details Date Type Department Care Team (Late st Contact Info) Description 03/02/2014 [facility] [address] [place] [address] Diamond Sanabria DO Social History Tobacco Use Types Packs/Day Years Used Date Smoking Tobacco: Never Assessed Sex and Gender Information Value Date Recorded Sex Assigned at Male 10/31/2018 1:31 PM EST Legal Sex Male 6:42 AM EST Gender Identity Male 10/31/2018 1:31 PM EST Sexual Orientation Not on file documented as of this encounter Progress Notes * Diamond Sanabria DO - 01/13/2015 6:08 AM EST [id number] [place] [place] History of Present Illness This is a 68-year-old male who has a history of skin cancer as well as seborrheic keratoses. He has had a very pruritic lesion on his back and would like further suggestions.Pt denies any fever or chills, nausea or vomiting, chest pain or shortness of breath, abdominal pain, headache or dizziness. 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) Coronary Arteriosclerosis 414.00 Essential Hypercholesterolemia 272.0 Hypertension 401.9 Inflamed Seborrheic Keratosis 702.11 Osteopenia 733.90 Sebaceous Cyst 706.2 Seborrheic Keratosis 702.19 History of Skin Cancer V10.83 Temporal Arteritis 446.5 Vaccines Prophylactic Need Against Influenza V04.81 Visit For: Screening Exam Malignant Neoplasm Prostate V76.44 Vitamin D Deficiency 268.9 Current Meds Aspirin 81 MG Oral Tablet; Therapy: (Recorded:27Apr2011) to Atorvastatin Calcium 80 MG Oral Tablet; ONE TABLET BY MOUTH DAILY; Therapy: 59Jyv3676 to (Last Rx:86Yva2440) Requested for: 64Ilu7697 Calcium TABS; Therapy: (Recorded:27Apr2011) to Carvedilol 25 MG Oral Tablet; take 2 tablets by mouth twice daily; Therapy: 59Ypd5748 to (Last Rx:95Qhv0102) Requested for: 45Kpm8544 Digoxin 0.125 MG Oral Tablet; TAKE ONE TABLET DAILY IN ADDITION TO 0.25MG; Therapy: 40Clj0903 to (Last Rx:94Ouj1324) Requested for: 13Iad2107 Digoxin 0.25 MG Oral Tablet; TAKE 1 TABLET DAILY; Therapy: 30Aec5346 to (Evaluate:24Krm4743) Requested for: 93Lvm5102; Last Rx:[id number] Multiple Vitamins Oral Tablet; Therapy: (Recorded:62Ula8962) to Vitamin D CAPS; Therapy: (Recorded:16Dzu1349) to Warfarin Sodium 5 MG Oral Tablet; Take 1-2 tabs by mouth daily or as directed by Anticoagulation Clinic; Therapy: 21Nov2010 to (Evaluate:24Tjs8657) Requested for: 06Oil2536; Last Rx:[id number] Allergies Cardizem TABS Vitals Lele Vitals Data Includes: Current Encounter 93Izw1937 01:53PM 55Cce2563 01:38PM Temperature 98.5 F Pain Score 0 Allergy Status Reviewed Yes Safe at Home Yes Chaperoned During Appointment No Fall Risk No PHQ-9 Negative Physical Exam He is alert and oriented x3 in no acute distress. HEENT shows anicteric sclera mucous membranes moist. Oropharynx is clear. Neck is supple no JVD no LAD. His back shows a 1 cm excoriated warty plaque with mild erythema. He also has approximately a 4 mm phillips mildly inflamed plaque behind his right ear. Assessment 1. Inflamed Seborrheic Keratosis 702.11 Plan Inflamed seborrheic keratoses. I reviewed sun protection. Patient will followup with dermatology for treatment and further evaluation prn. ABCDs reviewed. All questions answered. Signatures Electronically signed by : DIAMOND SANABRIA DO; Mar 02 2014 9:35PM documented in this encounter Plan of Treatment Upcoming Encounters Date Type Department Care Team (Latest Contact Info) Description 03/11/2026 1:15 PM EDT Office Visit [facility] Division of Dermatology [facility] Dermatology [address], [address] [place] [address] Bernice Mark, VERONICA [address] [place] [address] In Person with Nurse Practitioner documented as of this encounter Visit Diagnoses Not on filedocumented in this encounter Care Teams Machine Stuffer Relationship Specialty Start Date End Date Gurvinder Dominguez MD [address] [place] [address] PCP - General 09/27/14 07/03/15 Ric Hidalgo MD [address] [place] [address] PCP - General Internal Medicine 07/04/15 02/11/18 Grayson Meza [address] [place] [address] PCP - General 02/12/18 Grayson Meza [address] [place] [address] PCP - Insurance Assigned PCP 07/24/22 documented as of this encounter
--- OUTSIDE RECORDS SUMMARY | 2025-11-16 17:44 | XMS_ITS | Encounter Summary ---
Author Organization [facility] Address [address] [place] [address] Care Team Providers Care Seasonal Sales Associate Name Role Phone Gurvinder Dominguez MD Primary Care Provider Ric Hidalgo MD Primary Care Provider [phone] Grayson Meza Primary Care Provider [phone] Grayson Meza Unavailable [phone] Encounter Details Date Type Department Care Team (Late st Contact Info) Description 08/28/2013 Clinical Conversion Encounter GENERAL CONVERSION Josefa Marquez RN Social History Tobacco Use Types Packs/Day Years Used Date Smoking Tobacco: Never Assessed Sex and Gender Information Value Date Recorded Sex Assigned at Male 10/31/2018 1:31 PM EST Legal Sex Male 6:42 AM EST Gender Identity Male 10/31/2018 1:31 PM EST Sexual Orientation Not on file documented as of this encounter Progress Notes * Josefa Marquez RN - 01/04/2015 6:40 PM EST [facility] [place] [place]. Anticoagulation Progress Report August 28, 2013 Name: Nick Solis Reason for Treatment: Atrial fibrillation INR Range: 2.0-3.0 Date: 2013-08-28 11:58 Location: [facility] INR: 2.80 Tablet Strength: 5 mg Next INR: 42 days 2013-10-09 Update Note: INR 08/28; POC Dosage Out: :Leon-5mg:M-7.5mg:T-5mg:W-5mg:Th-5mg:F-5mg:Sa-5mg: ASSESSMENT:Otilio Peacock Allison CLINICIAN:,, documented in this encounter Plan of Treatment Upcoming Encounters Date Type Department Care Team (Latest Contact Info) Description 03/11/2026 1:15 PM EDT Office Visit [facility] Division of Dermatology [facility] Dermatology [address], [address] [place] [address] Bernice Mark, VERONICA [address] [place] [address] In Person with Nurse Practitioner documented as of this encounter Visit Diagnoses Not on filedocumented in this encounter Care Teams Seasonal Sales Associate Relationship Specialty Start Date End Date Gurvinder Dominguez MD [address] [place] [address] PCP - General 09/27/14 07/03/15 Ric Hidalgo MD [address] [place] [address] PCP - General Internal Medicine 07/04/15 02/11/18 Grayson Meza [address] [place] [address] PCP - General 02/12/18 Grayson Meza [address] [place] [address] PCP - Insurance Assigned PCP 07/24/22 documented as of this encounter
--- OUTSIDE RECORDS SUMMARY | 2025-11-16 17:44 | XMS_ITS | Encounter Summary ---
Author Organization [facility] Address [address] [place] [address] Care Team Providers Care Concrete Mixer Loader Truck Mounted Name Role Phone Gurvinder Dominguez MD Primary Care Provider Ric Hidalgo MD Primary Care Provider [phone] Grayson Meza Primary Care Provider [phone] Grayson Meza Unavailable [phone] Encounter Details Date Type Department Care Team (Late st Contact Info) Description 03/16/2013 Clinical Conversion Encounter GENERAL CONVERSION Priya Tatum, RN [address] [place] [address] Social History Tobacco Use Types Packs/Day Years Used Date Smoking Tobacco: Never Assessed Sex and Gender Information Value Date Recorded Sex Assigned at Male 10/31/2018 1:31 PM EST Legal Sex Male 6:42 AM EST Gender Identity Male 10/31/2018 1:31 PM EST Sexual Orientation Not on file documented as of this encounter Progress Notes * Priya Tatum RN - 01/03/2015 3:42 PM EST [id number],MICHAEL [facility] [place], [place]. Anticoagulation Progress Report March 16, 2013 Name: Nick Solis Reason for Treatment: Atrial fibrillation INR Range: 2.0-3.0 Date: 2013-03-16 16:28 Location: [facility] INR: 2.20 Tablet Strength: 5 mg Next INR: 56 days 2013-05-11 Update Note: INR 03/16; Progress Note: met with pt 03/16; inr 05/11 Dosage Out: :Leon-5mg:M-7.5mg:T-5mg:W-5mg:Th-5mg:F-5mg:Sa-5mg: ASSESSMENT:Rc Velázquez Linda CLINICIAN:Rc Velázquez Linda documented in this encounter Plan of Treatment Upcoming Encounters Date Type Department Care Team (Latest Contact Info) Description 03/11/2026 1:15 PM EDT Office Visit [facility] Division of Dermatology [facility] Dermatology [address] [facility], [address] [place] [address] Bernice Mark NP [address] [place] [address] In Person with Nurse Practitioner documented as of this encounter Visit Diagnoses Not on filedocumented in this encounter Care Teams Concrete Mixer Loader Truck Mounted Relationship Specialty Start Date End Date Gurvinder Dominguez MD [address] [place] [address] PCP - General 09/27/14 07/03/15 Ric Hidalgo MD [address] [place] [address] PCP - General Internal Medicine 07/04/15 02/11/18 Grayson Meza [address] [place] [address] PCP - General 02/12/18 Grayson Meza [address] [place] [address] PCP - Insurance Assigned PCP 07/24/22 documented as of this encounter
--- OUTSIDE RECORDS SUMMARY | 2025-11-16 17:44 | XMS_ITS | Encounter Summary ---
Author Organization [facility] Address [address] [place] [address] Care Team Providers Care Spare Hand Carding Name Role Phone Gurvinder Dominguez MD Primary Care Provider Ric Hidalgo MD Primary Care Provider [phone] Grayson Meza Primary Care Provider [phone] Grayson Meza Unavailable [phone] Encounter Details Date Type Department Care Team (Late st Contact Info) Description 07/06/2014 Clinical Conversion Encounter GENERAL CONVERSION Aleena Caban RN Social History Tobacco Use Types Packs/Day Years Used Date Smoking Tobacco: Never Assessed Sex and Gender Information Value Date Recorded Sex Assigned at Male 10/31/2018 1:31 PM EST Legal Sex Male 6:42 AM EST Gender Identity Male 10/31/2018 1:31 PM EST Sexual Orientation Not on file documented as of this encounter Progress Notes * Aleena Caban RN - 01/13/2015 8:59 PM EST [id number],MICHAEL [facility] [place], [place]. Anticoagulation Progress Report July 06, 2014 Name: Nick Solis Reason for Treatment: Atrial fibrillation INR Range: 2.0-3.0 Date: 2014-07-06 07:33 Location: [facility] INR: 2.30 Tablet Strength: 5 mg Next INR: 55 days 2014-08-30 Update Note: INR 07/05 [facility];fax Progress Note: letter sent 07/06; INR 08/30 Dosage Out: :Leon-5mg:M-7.5mg:T-5mg:W-5mg:Th-5mg:F-5mg:Sa-5mg: ASSESSMENT:[id number] Marty CLINICIAN:[id number],Aleena Colin documented in this encounter Plan of Treatment Upcoming Encounters Date Type Department Care Team (Latest Contact Info) Description 03/11/2026 1:15 PM EDT Office Visit [facility] Division of Dermatology [facility] Dermatology [address] [facility], [address] [place] [address] Bernice Mark, VERONICA [address] [place] [address] In Person with Nurse Practitioner documented as of this encounter Visit Diagnoses Not on filedocumented in this encounter Care Teams Spare Hand Carding Relationship Specialty Start Date End Date Gurvinder Dominguez MD [address] [place] [address] PCP - General 09/27/14 07/03/15 Ric Hidalgo MD [address] [place] [address] PCP - General Internal Medicine 07/04/15 02/11/18 Grayson Meza [address] [place] [address] PCP - General 02/12/18 Grayson Meza [address] [place] [address] PCP - Insurance Assigned PCP 07/24/22 documented as of this encounter
--- OUTSIDE RECORDS SUMMARY | 2025-11-16 17:44 | XMS_ITS | Encounter Summary ---
Author Organization Nely Clark [facility] Address [address] [place] [address] Care Team Providers Care Deli Cutter Slicer Name Role Phone Gurvinder Dominguez MD Primary Care Provider Ric Hidalgo MD Primary Care Provider [phone] Grayson Meza Primary Care Provider [phone] Grayson Meza Unavailable [phone] Encounter Details Date Type Department Care Team (Late st Contact Info) Description 12/30/2009 Clinical Conversion Encounter Department of Cardiology - Anticoagulation [address] [place] [address] Symone Grewal NP Social History Tobacco Use Types Packs/Day Years Used Date Smoking Tobacco: Never Assessed Sex and Gender Information Value Date Recorded Sex Assigned at Male 10/31/2018 1:31 PM EST Legal Sex Male 6:42 AM EST Gender Identity Male 10/31/2018 1:31 PM EST Sexual Orientation Not on file documented as of this encounter Progress Notes * Symone Grewal NP - 12/07/2014 10:10 AM EST [id number] SOLIS [place], [place]. CARDIOVASCULAR NICK SOLIS 12/30/2009 # [id number] : 1945 Second Visit ID: Visit ID: [id number] OUTPATIENT ANTICOAGULATION CLINIC ORDERS ANTICOAGULATION INDICATIONS: Atrial fibrillation INR GOAL RANGE: 2.0-3.0 NURSING CARE * Provide Anticoagulation Clinic warfarin management and patient education. * Adjust warfarin dose to try to maintain INR within goal range using guidelines below. * When appropriate, consider lifestyle, health status and medication changes to assist with decision-making. * Discuss dosing recommendations outside the guidelines with a prescriber; document discussion and rationale WARFARIN DOSING GUIDELINES: Warfarin Dose Adjustment - Use Column that reflects desired INR goal range INR 2.0-3.0 or lower 2.5-3.5 or higher <1.5 Increase weekly dose by 5%-20% Increase weekly dose by 15%-20% 1.6-2 Increase weekly dose by 5%-10% Increase weekly dose by 5%-15% 2.1-2.5 Therapeutic no change in dose Increase weekly dose by 5%-10% 2.6-3 Therapeutic no change in dose Therapeutic no change in dose 3.1-3.5 Decrease weekly dose by 5%-10% Therapeutic no change in dose 3.6-4 Hold 1 dose Decrease weekly dose by 5%-10% 4.1-5 Hold 1-2 doses Hold 1-2 doses Decrease weekly dose by 10%-20% Decrease weekly dose by 5%-15%>5 Hold warfarin therapy Recheck PT/INR in 1-4 days Assess for signs of bleeding including: nosebleeds, bleeding from gums, unusual bleeding or bruising, vomiting, red/coffee ground material, red or tarry black stools, red or dark brown urine Consult with physician Restart warfarin when INR within 0.5 of goal range LABORATORY TESTS PT/INR Less than 1 week INR > 5; New patient without established warfarin dose Every 1 week New patient with established warfarin dose Recently discharged inpatient. Chemo/radiation patient Potential drug-drug interaction Dialysis patients with unstable INR; Pre-cardioversion Other high risk condition Every 2 weeks Patient not at goal and INR < 5 Every 2-4 weeks Stable patient (INR at goal) Begin with 2 week monitoring; move to 4 week monitoring after 2nd two (2) week PT/INR is in range Symone Grewal NP [phone] AP:dakota J: 0 CC: ANTICOAGULATION CLINIC THIS DOCUMENT WAS DICTATED AND AUTHENTICATED BY Symone Grewal NP, ON 01/02/2010 11:41:24, AND FORWARDED TO THE ATTENDING PHYSICIAN FOR FINAL AUTHENTICATION. THIS DOCUMENT WAS ELECTRONICALLY AUTHENTICATED BY Abdullahi Wood MD ON 01/24/2010 09:20:13 PROGRESS NOTE [facility] * [address] [facility], [place] [address] * [phone] Page 2 of 2 documented in this encounter Plan of Treatment Upcoming Encounters Date Type Department Care Team (Latest Contact Info) Description 03/11/2026 1:15 PM EDT Office Visit [facility] Division of Dermatology [facility] Dermatology [address] [facility], [address] [place] [address] Bernice Mark NP [address] [place] [address] In Person with Nurse Practitioner documented as of this encounter Visit Diagnoses Not on filedocumented in this encounter Care Teams Deli Cutter Slicer Relationship Specialty Start Date End Date Gurvinder Dominguez MD [address] [place] [address] PCP - General 09/27/14 07/03/15 Ric Hidalgo MD [address] [place] [address] PCP - General Internal Medicine 07/04/15 02/11/18 Grayson Meza [address] [place] [address] PCP - General 02/12/18 Grayson Meza [address] [place] [address] PCP - Insurance Assigned PCP 07/24/22 documented as of this encounter
--- OUTSIDE RECORDS SUMMARY | 2025-11-16 17:44 | XMS_ITS | Encounter Summary ---
Author Organization Nely Clark [facility] Address [address] [place] [address] Care Team Providers Care Software Analyst Name Role Phone Gurvinder Dominguez MD Primary Care Provider Ric Hidalgo MD Primary Care Provider [phone] Grayson Meza Primary Care Provider [phone] Grayson Meza Unavailable [phone] Encounter Details Date Type Department Care Team (Late st Contact Info) Description 04/03/2014 Clinical Conversion Encounter GENERAL CONVERSION Shirley Chaudhari RN Social History Tobacco Use Types Packs/Day Years Used Date Smoking Tobacco: Never Assessed Sex and Gender Information Value Date Recorded Sex Assigned at Male 10/31/2018 1:31 PM EST Legal Sex Male 6:42 AM EST Gender Identity Male 10/31/2018 1:31 PM EST Sexual Orientation Not on file documented as of this encounter Progress Notes * Shirley Chaudhari RN - 01/13/2015 9:48 AM EST [id number],MICHAEL [place], [place]. Anticoagulation Progress Report April 03, 2014 Name: Nick Solis Reason for Treatment: Atrial fibrillation INR Range: 2.0-3.0 Date: 2014-04-03 08:47 Location: [facility] INR: 2.50 Tablet Strength: 5 mg Next INR: 27 days 2014-04-30 Update Note: INR 04/02 [facility];fax Progress Note: 04/02 Letter sent, Next Inr 04/30 Dosage Out: :Leon-5mg:M-7.5mg:T-5mg:W-5mg:Th-5mg:F-5mg:Sa-5mg: ASSESSMENT:[id number] Marty CLINICIAN:Watson Sawyer Diane documented in this encounter Plan of Treatment Upcoming Encounters Date Type Department Care Team (Latest Contact Info) Description 03/11/2026 1:15 PM EDT Office Visit [facility] Division of Dermatology [facility] Dermatology [address] [facility], [address] [place] [address] Bernice Mark NP [address] [place] [address] In Person with Nurse Practitioner documented as of this encounter Visit Diagnoses Not on filedocumented in this encounter Care Teams Software Analyst Relationship Specialty Start Date End Date Gurvinder Dominguez MD [address] [place] [address] PCP - General 09/27/14 07/03/15 Ric Hidalgo MD [address] [place] [address] PCP - General Internal Medicine 07/04/15 02/11/18 Grayson [address]za [address] [place] [address] PCP - General 02/12/18 Grayson Meza [address] [place] [address] PCP - Insurance Assigned PCP 07/24/22 documented as of this encounter
--- OUTSIDE RECORDS SUMMARY | 2025-11-16 17:44 | XMS_ITS | Encounter Summary ---
Author Organization [facility]ely [facility] Address [address] [place] [address] Care Team Providers Care Sole Seamer Name Role Phone Gurvinder Dominguez MD Primary Care Provider Ric Hidalgo MD Primary Care Provider [phone] Grayson Meza Primary Care Provider [phone] Grayson Meza Unavailable [phone] Encounter Details Date Type Department Care Team (Late st Contact Info) Description 04/28/2013 Clinical Conversion Encounter Department of Cardiology [facility] Cardiology [address] [place] [address] Malcolm Zavaleta MD [address] [place] [address] Social History Tobacco Use Types Packs/Day Years Used Date Smoking Tobacco: Never Assessed Sex and Gender Information Value Date Recorded Sex Assigned at Male 10/31/2018 1:31 PM EST Legal Sex Male 6:42 AM EST Gender Identity Male 10/31/2018 1:31 PM EST Sexual Orientation Not on file documented as of this encounter Progress Notes * Malcolm Zavaleta MD - 01/03/2015 9:54 PM EST [id number],MICHAEL [place], [place]. 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 He has had a history of bypass surgery, doing quite well. He has also had known chronic atrial fibrillation on Coumadin therapy. He has been asymptomatic without symptoms and is active and exercising on a regular basis. MEDICATIONS: Include carvedilol 25 mg 2 tabs a day, warfarin 5 mg p.o. daily, digoxin 0.125 mg p.o. daily, and Lipitor 80 mg with an LDL 80. PHYSICAL EXAMINATION: Blood pressure 118/80. HEENT is unremarkable. Mucous membranes clear. Cardiac exam: Normal S1, normal S2. No S3, rubs or gallops. PLAN: Follow up in approximately 1 year's time. Continue current medical therapy. Exercise stress test will be obtained at the time of the next office visit. Malcolm Zavaleta MD Pulp [facility] and Interventional Cardiovascular Medicine [phone] TCP:nts J: [id number] / [id number] CC: Malcolm Zavaleta MD, <Referring> Gurvinder Dominguez MD, <Primary Care Physician> THIS DOCUMENT WAS ELECTRONICALLY AUTHENTICATED BY Malcolm Zavaleta MD ON 05/22/2013 10:51:10 documented in this encounter Plan of Treatment Upcoming Encounters Date Type Department Care Team (Latest Contact Info) Description 03/11/2026 1:15 PM EDT Office Visit [facility] Division of Dermatology [facility] [facility] [address] [facility], [address] [place] [address] Bernice Mark NP [address] [place] [address] In Person with Nurse Practitioner documented as of this encounter Visit Diagnoses Not on filedocumented in this encounter Care Teams Sole Seamer Relationship Specialty Start Date End Date Gurvinder Dominguez MD [address] [place] [address] PCP - General 09/27/14 07/03/15 Ric Hidalgo MD [address] [place] [address] PCP - General Internal Medicine 07/04/15 02/11/18 Grayson Meza [address] [place] [address] PCP - General 02/12/18 Grayson Meza [address] [place] [address] PCP - Insurance Assigned PCP 07/24/22 documented as of this encounter
--- OUTSIDE RECORDS SUMMARY | 2025-11-16 17:44 | XMS_ITS | Encounter Summary ---
Author Organization Nely Clark [facility] Address [address] [place] [address] Care Team Providers Care Batt Packer Name Role Phone Gurvinder Dominguez MD Primary Care Provider Ric Hidalgo MD Primary Care Provider [phone] Grayson Meza Primary Care Provider [phone] Grayson Meza Unavailable [phone] Encounter Details Date Type Department Care Team (Late st Contact Info) Description 10/01/2008 Clinical Conversion [facility] [address] [place] [address] Ligia Mena MD [address] [place] [address] Social History Tobacco Use Types Packs/Day Years Used Date Smoking Tobacco: Never Assessed Sex and Gender Information Value Date Recorded Sex Assigned at Male 10/31/2018 1:31 PM EST Legal Sex Male 6:42 AM EST Gender Identity Male 10/31/2018 1:31 PM EST Sexual Orientation Not on file documented as of this encounter Discharge Summaries * Ligia Mena MD - 01/24/2015 2:40 PM EDT [id number],MICHAEL [place], [place]. DISCHARGE SUMMARY NAME: NICK SOLIS MARKELL#: [id number] : 1945 ADMISSION DATE: 10/01/2008 DISCHARGE DATE: 10/10/2008 VISIT ID: [id number] This is a discharge summary in addition to the discharge summary previously dictated by Dr. Adali Diaz on 10/03/08. This includes the dates from 10/04/08 to 10/08/08. INFECTIOUS DISEASE: Initially, this was felt most likely to be a viral illness. The patient's temperature remained elevated, initially higher-spiking temperatures up to about 102, but the patient remained with temperatures throughout the remainder of his hospital stay, with temperature at the time of this dictation of 100.4. White blood cell count did slowly improve, and at this time is 11. Initially, it was felt that most likely this was a viral etiology, given the elevation in liver function tests, diarrhea, and fever. Unfortunately, hepatitis serologies were ultimately negative. In addition, CT scan of the abdomen was relatively unrevealing, but the patient was started on empiric levofloxacin and Flagyl, which was ultimately discontinued after Infectious Disease was consulted. Tickborne illness was also considered, but Lyme, Babesia, and Ehrlichia were all negative. EBV was negative, and CMV was sent but has not returned. Blood cultures have all been negative. Legionella antigen was negative. Chest x-rays and CT scan of the chest all were negative for pneumonia or pulmonary embolism. Gastroenterology did not think this was consistent with Crohn's disease or other gastrointestinal etiology. They did note a pancreatic cyst which will be followed up as an outpatient. They felt that most likely the elevated liver function tests were due to shock liver in the setting of patient's syncopal episode. Liver function tests did significantly improve. The patient was changed over from levofloxacin and Flagyl to Unasyn and doxycycline on 10/05/2008. The rationale was the possibility of Listeria, given that the patient had eaten soft cheeses at an outside market in [place]. There was also the question of Q fever, and therefore the patient was started on empiric doxycycline. Initially, it appeared that the patient's fever curve was decreasing, but then the patient veered from the fever curve and therefore did not seem to be improving any longer, and this was inconsistent with infection. Transthoracic echocardiogram showed no evidence of endocarditis. The patient had no specific complaints except for possibility of sinusitis, and therefore a CT scan of the sinuses was done, but this too was negative. Ultimately, it was felt by the infectious disease team that the cause for this Fever of Unknown Origin was unlikely to be an infectious etiology, and other avenues were considered. Tumor markers were sent and found to be negative. Rheumatology was consulted. ANCA was also negative. Temporal artery biopsy is being considered. PET scan has also been ordered to look for malignancy, lymphoma, and granulomatous disease. SPEP, UPEP have also been sent and are pending at this time. A Whipple's PCR has also been ordered. If all of the above are negative, the next step may be bone marrow biopsy. The plan will be for likely discontinuation of antibiotics tomorrow and possible discharge to home with further workup as an outpatient. The patient's white blood cell count is currently 11, and he continues to have low-grade temperatures. We will send a stool for C difficile, although the patient is not having diarrhea, but he has been on antibiotics for at least one week and therefore is at risk. Previous stool cultures which had been sent off x2 sets have all been negative. The patient had paroxysmal atrial fibrillation during his hospital stay. When in atrial fibrillation, the patient was quite rapid with heart rates up into the 140s. He was found to have a subtherapeutic digoxin level, even when receiving 0.25 mg p.o. daily. This was felt to be very strange, as the patient reported excellent compliance and he had received documented doses here. Pharmacy along with the pharm D was consulted. The patient was digoxin loaded with success, and this helped to control him better. He also received IV Lopressor as needed, and his carvedilol dose was increased. He does not tolerate calcium channel blockers. INR is 2.6, and the patient is back on his home Coumadin dosing. He should follow up with an outpatient housekeeping staff. If the patient has issues with paroxysmal atrial fibrillation again in the future with a therapeutic digoxin level, then antiarrhythmics or electrophysiology procedure may be considered. LFTs significantly improved. Most likely due to shock liver. LFTs should be checked in 1 to 2 weeks as an outpatient. Results have been requested to be sent to Dr. Ham of gastroenterology. In addition, pancreatic cyst should be followed up with MRI, and results to be followed up by Dr. Ham with an appointment in 3 to 6 months. CA 19-9 was within normal limits. In regards to patients syncope, this most likely was vasovagal. Echocardiogram showed normal left ventricular ejection fraction without any significant valvular disease and no wall motion abnormalities and no evidence of endocarditis. Arrhythmias noted as above were paroxysmal atrial fibrillation and rapid at times. No other etiology for syncope. [place] to most likely be vasovagal in the setting of severe diarrhea. DISCHARGE DIAGNOSES: Fever of unknown origin, vasovagal syncope, hypotension, rapid atrial fibrillation, supratherapeutic INR, transaminitis, pancreatic cyst. DISCHARGE MEDICATIONS: Digoxin 0.25 mg p.o. daily; Coumadin 5 mg p.o. daily except 7.5 mg on Saturday, Saturday, ; lisinopril 2.5 mg p.o. daily, Zetia 10 mg p.o. daily, carvedilol 37.5 mg p.o. b.i.d. DISCHARGE INSTRUCTIONS: Call MD if symptoms are to worsen. Check labs next week with Dr. Claire. Follow up with Dr. Claire next week. Follow up with your housekeeping staff, schedule an appointment upon discharge. Follow up with Dr. Ham in 3 to 6 months with an MRI of the pancreatic cyst prior to appointment. Follow up with Dr. Wei at rheumatology (time to be scheduled), and follow up temporal artery biopsy as an outpatient. Time spent on discharge planning: Greater than 30 minutes. Ligia Mena MD [phone] [id number] J: [id number] CC: KENYON GALE, <Primary Care Physician> THIS DOCUMENT WAS ELECTRONICALLY AUTHENTICATED BY Ligia Mena MD ON 10/11/2008 12:47:18 NICK SOLIS 10/10/2008 # [id number] DISCHARGE SUMMARY [facility] * [address] [place] [address] * [phone] Page 2 of 3 documented in this encounter Plan of Treatment Upcoming Encounters Date Type Department Care Team (Latest Contact Info) Description 03/11/2026 1:15 PM EDT Office Visit [facility] Division of Dermatology [facility] Dermatology [address] [facility], [address] [place] [address] Bernice Mark NP [address] [place] [address] In Person with Nurse Practitioner documented as of this encounter Visit Diagnoses Not on filedocumented in this encounter Care Teams Batt Packer Relationship Specialty Start Date End Date Gurvinder Dominguez MD [address] [place] [address] PCP - General 09/27/14 07/03/15 Ric Hidalgo MD [address] [place] [address] PCP - General Internal Medicine 07/04/15 02/11/18 Grayson Meza [address] [place] [address] PCP - General 02/12/18 Grayson Meza [address] [place] [address] PCP - Insurance Assigned PCP 07/24/22 documented as of this encounter
--- OUTSIDE RECORDS SUMMARY | 2025-11-16 17:44 | XMS_ITS | Encounter Summary ---
Author Organization Nely Clark [facility] Address [address] [place] [address] Care Team Providers Care Four Roll Calender Operator Name Role Phone Gurvinder Dominguez MD Primary Care Provider Ric Hidalgo MD Primary Care Provider [phone] Grayson Meza Primary Care Provider [phone] Grayson Meza Unavailable [phone] Encounter Details Date Type Department Care Team (Late st Contact Info) Description 10/12/2013 Clinical Conversion Encounter GENERAL CONVERSION Aleena Brown RN Social History Tobacco Use Types Packs/Day Years Used Date Smoking Tobacco: Never Assessed Sex and Gender Information Value Date Recorded Sex Assigned at Male 10/31/2018 1:31 PM EST Legal Sex Male 6:42 AM EST Gender Identity Male 10/31/2018 1:31 PM EST Sexual Orientation Not on file documented as of this encounter Progress Notes * Aleena Brown RN - 01/04/2015 9:46 PM EST [id number],[facility] [place], [place]. Anticoagulation Progress Report October 12, 2013 Name: Nick Solis Reason for Treatment: Atrial fibrillation INR Range: 2.0-3.0 Date: 2013-10-12 13:52 Location: [facility] INR: 2.80 Tablet Strength: 5 mg Next INR: 39 days 2013-11-20 Update Note: 10/12 INR Dosage Out: :Leon-5mg:M-7.5mg:T-5mg:W-5mg:Th-5mg:F-5mg:Sa-5mg: ASSESSMENT:[id number] Deborah CLINICIAN:,, documented in this encounter Plan of Treatment Upcoming Encounters Date Type Department Care Team (Latest Contact Info) Description 03/11/2026 1:15 PM EDT Office Visit [facility] Division of Dermatology [facility] Dermatology [address] [facility], [address] [place] [address] Bernice Mark NP [address] [place] [address] In Person with Nurse Practitioner documented as of this encounter Visit Diagnoses Not on filedocumented in this encounter Care Teams Four Roll Calender Operator Relationship Specialty Start Date End Date Gurvinder Dominguez MD [address] [place] [address] PCP - General 09/27/14 07/03/15 Ric Hidalgo MD [address] [place] [address] PCP - General Internal Medicine 07/04/15 02/11/18 Grayson Meza [address] [place] [address] PCP - General 02/12/18 Grayson Meza [address] [place] [address] PCP - Insurance Assigned PCP 07/24/22 documented as of this encounter
--- OUTSIDE RECORDS SUMMARY | 2025-11-16 17:44 | XMS_ITS | Encounter Summary ---
Author Organization Nely Clark [facility] Address [address] [place] [address] Care Team Providers Care Nutrition Program Instructor Name Role Phone Gurvinder Dominguez MD Primary Care Provider Ric Hidalgo MD Primary Care Provider [phone] Grayson Meza Primary Care Provider [phone] Grayson Meza Unavailable [phone] Encounter Details Date Type Department Care Team (Late st Contact Info) Description 12/12/2012 Clinical Conversion Encounter GENERAL CONVERSION Aleena Caban, [facility] Social History Tobacco Use Types Packs/Day Years Used Date Smoking Tobacco: Never Assessed Sex and Gender Information Value Date Recorded Sex Assigned at Male 10/31/2018 1:31 PM EST Legal Sex Male 6:42 AM EST Gender Identity Male 10/31/2018 1:31 PM EST Sexual Orientation Not on file documented as of this encounter Progress Notes * Aleena Caban RN - 01/03/2015 5:59 AM EST [id number],[facility] [place], [place]. Anticoagulation Progress Report December 12, 2012 Name: Nick Solis Reason for Treatment: Atrial fibrillation INR Range: 2.0-3.0 Date: 2012-12-12 18:04 Location: [facility] INR: 2.80 Tablet Strength: 5 mg Next INR: 28 days 2013-01-09 Update Note: met with pt at [facility] Dosage Out: :Leon-5mg:M-7.5mg:T-5mg:W-5mg:Th-5mg:F-5mg:Sa-5mg: ASSESSMENT:[id number],Aleena Caban CLINICIAN:,, documented in this encounter Plan of Treatment Upcoming Encounters Date Type Department Care Team (Latest Contact Info) Description 03/11/2026 1:15 PM EDT Office Visit [facility] Division of Dermatology Dermatology [address] [facility], [address] [place] [address] Bernice Mark NP [address] [place] [address] In Person with Nurse Practitioner documented as of this encounter Procedures Procedure Name Priority Date/Time Associated Diagnosis Comments POCI INR Routine 12/12/2012 6:05 PM EST documented in this encounter Results * (ABNORMAL) POCT INR (12/12/2012 6:05 PM EST) INR (POC) Conversion 2.8(H) <1.3 INR SUNQUEST Comment:[facility] 12/12/2012 6:05 PM EST 12/12/2012 6:16 PM EST Abdullahi Wood MD POCT ORDERABLES - DEVICE Final R esult SUNQUEST documented in this encounter Visit Diagnoses Not on filedocumented in this encounter Care Teams Nutrition Program Instructor Relationship Specialty Start Date End Date Gurvinder Dominguez MD [address] [place] [address] PCP - General 09/27/14 07/03/15 Ric Hidalgo MD [address] [place] [address] PCP - General Internal Medicine 07/04/15 02/11/18 Grayson Meza [address] [place] [address] PCP - General 02/12/18 Grayson Meza [address] [place] [address] PCP - Insurance Assigned PCP 07/24/22 documented as of this encounter
--- OUTSIDE RECORDS SUMMARY | 2025-11-16 17:44 | XMS_ITS | Encounter Summary ---
Author Organization Nely Alf [facility] Address [address] [place] [address] Care Team Providers Care Industrial Safety And Health Technician Name Role Phone Gurvinder Dominguez MD Primary Care Provider Ric Hidalgo MD Primary Care Provider [phone] Grayson Meza Primary Care Provider [phone] Grayson Meza Unavailable [phone] Encounter Details Date Type Department Care Team (Late st Contact Info) Description 12/28/2009 Clinical Conversion Encounter Department of Rheumatology [facility] Rheumatology [address] [place] [address] Farida Wei MD [address] [place] [address] Social History Tobacco Use Types Packs/Day Years Used Date Smoking Tobacco: Never Assessed Sex and Gender Information Value Date Recorded Sex Assigned at Male 10/31/2018 1:31 PM EST Legal Sex Male 6:42 AM EST Gender Identity Male 10/31/2018 1:31 PM EST Sexual Orientation Not on file documented as of this encounter Progress Notes * Farida Wei MD - 12/07/2014 10:10 AM EST [id number] RHEUMATOLOGY NICK SOLIS 12/28/2009 # [id number] : 1945 Second Visit ID: [id number] Visit ID: [id number] PROBLEM LIST: 1. History of FUO with elevated, sedimentation rate, CRP, transaminitis. Status post bilateral temporal artery biopsies 11/29/08, showing focal inflammation in the adventitia and outer muscle of the artery, focal asymmetric intimal hyperplasia, interruption and reduplication of the internal elastic membrane and special stain concerning for healed arteritis. 2. Coronary artery disease, status post CABG. 3. Atrial fibrillation on Coumadin. 4. Family history of psoriasis in a brother. 5. Abdominal CT changes in the ileum. Follow up with Dr. Forbes. No diagnosis, but ileal changes, resolved per imaging study 01/06/09. 6. Vitamin D deficiency: 25OH-vitamin D was 8, 12/03/08, antiendomysial negative. 7. Diverticulosis noted on CT 2008. Mr. 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 Briefly, his initial symptoms for fever, weight loss, transaminitis, anemia, thrombocytopenia, elevated sedimentation rate, CRP and abnormal sensation that he could feel his hair growing but had irregularities noted on his distal ileum and irregularity of the wall of the gallbladder on CT. Initially he had diffuse arthralgias, myalgias of his knees, elbows, shoulders and uncontrollable diarrhea. Extended evaluation included a Whipple's DNA, Lyme testing, babesiosis, ehrlichiosis, hepatitis A, B, C and transesophageal echo all of which were normal. He was started on 1 mg/kg/day of prednisone and tapering. He had no problems with headache, visual changes, jaw claudication or scalp tenderness. We initiated Fosamax for osteoporosis: He has been doing quite well. He now takes about 1800 units of vitamin D. He was noting more trouble with atrial fibrillation and his digoxin was increased to 0.5. Currently he has a slight upper respiratory infection sinus congestion, mild yellow discharge, no green. No fever, chills, sweats. He has had a few arthralgias since his upper respiratory infection. He has no nausea, vomiting, abdominal pain, diarrhea, melena, or hematochezia. He has been on 1 mg for about a month. CURRENT MEDICATIONS: Lipitor, Zetia, carvedilol 25, two tablets twice daily, warfarin 5 mg, digoxin 0.5, prednisone 1 mg last dropped the dose one month ago, Fosamax 70 p.o. q. week, and Aldara topical cream. ALLERGIES: Cardizem caused a rash. PHYSICAL EXAMINATION: This is a pleasant male in no acute distress. His vital signs: His blood pressure 142/86, heart rate 78, weight 199, temperature 97.4, O2 sat 98, pain 0/10.Skin: His temporal arteries were non-indurated, nontender. No scalp tenderness. Mild diffuse erythema of his face. Conjunctivae slightly injected. Oropharynx clear. Lungs: Clear. Cardiovascular exam: Irregular irregular. Normal S1, S2. Abdomen: Benign. No bruits. Musculoskeletal exam: Good range of motion of all his joints. No active synovitis. His hips had diminished internal rotation. Previously he had some fluid in his sternoclavicular joint that I did not address today. LABORATORY DATA: Laboratory data from 10/28/09: Liver profile normal. White count 5.86, hemoglobin and hematocrit 14 and 42, platelets 173, albumin 3.7, ALT 37, AST 22, creatinine 0.8, CRP less than 1. IMPRESSION AND PLAN: 1. Presumed temporal arteritis based on fever of unclear etiology, weight loss, anemia, thrombocytosis, elevated sedimentation rate, CRP: Serologic work-up unremarkable. Infectious workup and malignancy workup negative. The changes that were in his ileum and gallbladder resolved. He was seen by Dr. Forbes. At this point he has no features of giant cell arteritis. I will do his bloodwork today. If things look great, we will taper him off steroids. 2. Vitamin D deficiency: His last vitamin D in the fall looked okay. His screening for sprue was unremarkable. 3. At risk for osteoporosis: DEXA 12/15/08: T score at his spine -0.5, femoral neck -0.7. He continues on Fosamax. Ideally, I would like to update another DEXA, but if he stops the prednisone we will probably continue the Fosamax for a short period of time then discontinue it. 4. Health maintenance: He used to receive Pneumovax. We will give him seasonal flu and the H1N1 vaccination today. 5. Upper respiratory infection: If his CRP is elevated, it may be related to a mild upper respiratory infection or his vaccinations that we are being done today. We will simply repeat it if this is the case. 6. Health maintenance: He came in fasting today. We will do a fasting lipid profile and glucose and given his history of giant cell arteritis, we will do a screening abdominal ultrasound. His last imaging study was a year ago. Bella Wei MD [phone] SCK:nora J: [id number] CC: Bella Wei MD, <Referring> Gurvinder Dominguez MD, <Primary Care Physician> THIS DOCUMENT WAS ELECTRONICALLY AUTHENTICATED BY Bella Wei MD ON 01/11/2010 17:28:46 PROGRESS NOTE [facility] * [address] [place] [address] * [phone] Page 3 of 3 documented in this encounter Plan of Treatment Upcoming Encounters Date Type Department Care Team (Latest Contact Info) Description 03/11/2026 1:15 PM EDT Office Visit [facility] Division of Dermatology [facility] Dermatology [address] [facility], [address] [place] [address] Bernice Mark NP [address] [place] [address] In Person with Nurse Practitioner documented as of this encounter Procedures Procedure Name Priority Date/Time Associated Diagnosis Comments DIFFERENTIAL WITH WBC Routine 12/28/2009 1:59 PM EST PROTIME-INR Timed 12/28/2009 1:59 PM EST CBC Routine 12/28/2009 1:59 PM EST C-REACTIVE PROTEIN Routine 12/28/2009 1: 59 PM EST ALT Routine 12/28/2009 1:59 PM EST AST Routine 12/28/2009 1:59 PM EST GLUCOSE, FASTING Routine 12/28/2009 1:59 PM EST CREATININE, BLOOD Routine 12/28/2009 1:5 9 PM EST ALBUMIN Routine 12/28/2009 1:59 PM EST LIPID PANEL Routine 12/28/2009 1:59 PM EST documented in this encounter Results * (ABNORMAL) Lipid Panel (12/28/2009 1:59 PM EST) HOURS PC (CONVERSION) 6.5 SUNQUEST Triglycerides 100 55 - 150 MG/DL SUNQUEST Cholesterol 230(H) 130 - 200 MG/DL SUNQUEST HDL Cholesterol 40 40 - 75 MG/DL SUNQUEST Ratio Chol/HDL 5.8(H) 2.0 - 5.0 SUNQUEST Non-HDL Cholesterol 190(H) <190 MG/DL SUNQUEST Comment: Normal primary prevention <190 mg/dL High risk primary prevention <160 mg/dL Secondary prevention <130 mg/dL High risk secondary prevention <100 mg/dL LDL Cholesterol 170(H) <130 MG/DL SUNQUEST VLDL Cholesterol 20 MG/DL SUNQUEST 12/28/2009 1:59 PM EST 12/28/2009 2:06 PM EST us Farida Wei MD LAB BLOOD ORDERABLES Final Res ult SUNQUEST * ALT (12/28/2009 1:59 PM EST) ALT (SGPT) 26 7 - 40 IU/L SUNQUEST 12/28/2009 1:59 PM EST 12/28/2009 2:06 PM EST Farida Wei MD LAB BLOOD ORDERABLES Final Res ult SUNQUEST * AST (12/28/2009 1:59 PM EST) AST (SGOT) 26 11 - 40 IU/L SUNQUEST 12/28/2009 1:59 PM EST 12/28/2009 2:06 PM EST Farida Wei MD LAB BLOOD ORDERABLES Final Res ult Performing Organization Address [email or web address] de Phone Number SUNQUEST * (ABNORMAL) Glucose, Fasting (12/28/2009 1:59 PM EST) Glucose, Blood 106(H) 70 - 100 MG/DL SUNQUEST HOURS PC (CONVERSION) 6.5 HR SUNQUEST 12/28/2009 1:59 PM EST 12/28/2009 2:06 PM EST Farida Wei MD LAB BLOOD ORDERABLES Final Res ult Performing Organization Address [facility] Phone Number SUNQUEST * (ABNORMAL) Differential with WBC (12/28/2009 1:59 PM EST) WBC 6.84 4.4 - 11.3 K/uL SUNQUEST Polys 56 45 - 74 % SUNQUEST Lymphocyte 29 22 - 50 % SUNQUEST Monocyte 13(H) 0.7 - 7.5 % SUNQUEST Eosinophil 2 0 - 4 % SUNQUEST Basophil 0 0 - 2 % SUNQUEST Absolute Neutrophil Count 3.74 1.4 - 6.6 K/uL SUNQUEST Absolute Lymphocyte Count 2.00 1.2 - 3.5 K/uL SUNQUEST Absolute Monocyte Count 0.91(H) 0.0 - 0.5 K/uL SUNQUEST Absolute Eosinophil Count 0.15 0.00 - 0.40 K/uL SUNQUEST Absolute Basophil Count 0.03 0.00 - 0.20 K/uL SUNQUEST 12/28/2009 1:59 PM EST 12/28/2009 2:06 PM EST Farida Wei MD LAB BLOOD ORDERABLES Final Res ult Performing Organization Address [facility] [[email or web address]] de Phone Number SUNQUEST * (ABNORMAL) C-Reactive Protein (12/28/2009 1:59 PM EST) C-Reactive Protein (CRP) 5(H) <5 MG/L SUNQUEST 12/28/2009 1:59 PM EST 12/28/2009 2:06 PM EST Farida Wei MD LAB BLOOD ORDERABLES Final Res ult Performing Organization Address [facility] [[email or web address] de Phone Number SUNQUEST * Creatinine, Blood (12/28/2009 1:59 PM EST) Creatinine 0.8 0.6 - 1.3 MG/DL SUNQUEST 12/28/2009 1:59 PM EST 12/28/2009 2:06 PM EST Farida Wei MD LAB BLOOD ORDERABLES Final Res ult Performing Organization Address [email or web address] de Phone Number SUNQUEST * Albumin (12/28/2009 1:59 PM EST) Albumin, Blood 3.9 3.4 - 4.9 G/DL SUNQUEST 12/28/2009 1:59 PM EST 12/28/2009 2:06 PM EST Farida Wei MD LAB BLOOD ORDERABLES Final Res ult Performing Organization Address [email or web address] de Phone Number SUNQUEST * (ABNORMAL) CBC (12/28/2009 1:59 PM EST) WBC 6.84 4.4 - 11.3 K/uL SUNQUEST RBC 4.93 4.50 - 5.90 M/uL SUNQUEST Hemoglobin 15.2 13.8 - 17.4 G/DL SUNQUEST Hematocrit 45.2 41.0 - 51.0 % SUNQUEST MCV 92 80 - 96 FL SUNQUEST Platelet Count 170 150 - 450 K/uL SUNQUEST RDW 14.2(H) 11.6 - 14.6 % SUNQUEST 12/28/2009 1:59 PM EST 12/28/2009 2:06 PM EST us Farida Wei MD LAB BLOOD ORDERABLES Final Res ult Performing Organization Address [facility] Co de Phone Number SUNQUEST * (ABNORMAL) ProTime-INR (12/28/2009 1:59 PM EST) INR 1.9(H) <1.3 INR SUNQUEST Comment:[facility] 12/28/2009 1:59 PM EST 12/28/2009 2:06 PM EST us Abdullahi Wood MD LAB BLOOD ORDERABLES Final Resul t Performing Organization Address [facility] Co de Phone Number SUNQUEST documented in this encounter Visit Diagnoses Not on filedocumented in this encounter Care Teams Industrial Safety And Health Technician Relationship Specialty Start Date End Date Gurvinder Dominguez MD [address] [place] [address] PCP - General 09/27/14 07/03/15 Ric Hidalgo MD [address] [place] [address] PCP - General Internal Medicine 07/04/15 02/11/18 Grayson Meza [address] [place] [address] PCP - General 02/12/18 Grayson Meza [address] [place] [address] PCP - Insurance Assigned PCP 07/24/22 documented as of this encounter
--- OUTSIDE RECORDS SUMMARY | 2025-11-16 17:44 | XMS_ITS | Encounter Summary ---
Author Organization Nely Alf [facility] Address [address] [place] [address] Care Team Providers Care Small Package And Bundle Sorter Clerk Name Role Phone Gurvinder Dominguez MD Primary Care Provider Ric Hidalgo MD Primary Care Provider [phone] Grayson Meza Primary Care Provider [phone] Grayson Meza Unavailable [phone] Encounter Details Date Type Department Care Team (Late st Contact Info) Description 03/11/2012 Clinical Conversion Encounter Department of Cardiology [facility] Cardiology [address] [place] [address] Malcolm Zavaleta MD [address] [place] [address] Social History Tobacco Use Types Packs/Day Years Used Date Smoking Tobacco: Never Assessed Sex and Gender Information Value Date Recorded Sex Assigned at Male 10/31/2018 1:31 PM EST Legal Sex Male 6:42 AM EST Gender Identity Male 10/31/2018 1:31 PM EST Sexual Orientation Not on file documented as of this encounter Progress Notes * Malcolm Zavaleta MD - 01/01/2015 5:14 PM EST [id number],MICHAEL [place], [place]. CARDIOLOGY NICK SOLIS 03/11/2012 # [id number] : 1945 Second Visit ID: [id number] Visit ID: [id number] The patient is a very pleasant 67-year-old gentleman who has a history of bypass surgery approximately seven years ago. He also has had a history of ischemic cardiomyopathy, underwent bypass surgery, and has had improvement in his left ventricular function which has now normalized. He has had a history of atrial fibrillation, had a maze procedure performed cardioversion but remained in at least intermittent atrial fibrillation, if not chronic atrial fibrillation, requiring Coumadin therapy. He has done quite well. He has had no episodes of chest pain. 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 MEDICATIONS: Include: 1. Carvedilol 25 mg 2 tabs a day. 2. Warfarin 5 mg p.o. daily. 3. Digoxin 125 mg p.o. daily. 4. Lipitor 80 mg which resulted in a marked decrease in his LDL. 5. Lisinopril discontinued.. PHYSICAL EXAMINATION: Blood pressure 120/80. HEENT is unremarkable. Pulmonary exam is clear. Cardiac exam is normal S1, normal S2, no S3, no rubs or gallops. PLAN: Continue with the current medical therapy. We will plan a repeat stress echocardiogram and a lipid profile in two weeks. We will give him a call shortly after this. We will otherwise see him in one year's time. Malcolm Zavaleta MD [phone] [id number] J: [id number] CC: Malcolm Zavaleta MD, <Referring> Gurvinder Dominguez MD, <Primary Care Physician> THIS DOCUMENT WAS ELECTRONICALLY AUTHENTICATED BY Malcolm Zavaleta MD ON 04/07/2012 07:02:54 documented in this encounter Plan of Treatment Upcoming Encounters Date Type Department Care Team (Latest Contact Info) Description 03/11/2026 1:15 PM EDT Office Visit [facility] Division of Dermatology [facility] [address] [facility], [address] [place] [address] Bernice Mark NP [address] [place] [address] In Person with Nurse Practitioner documented as of this encounter Visit Diagnoses Not on filedocumented in this encounter Care Teams Small Package And Bundle Sorter Clerk Relationship Specialty Start Date End Date Gurvinder Dominguez MD [address] [place] [address] PCP - General 09/27/14 07/03/15 Ric Hidalgo MD [address] [place] [address] PCP - General Internal Medicine 07/04/15 02/11/18 Grayson Meza [address] [place] [address] PCP - General 02/12/18 Grayson Meza [address] [place] [address] PCP - Insurance Assigned PCP 07/24/22 documented as of this encounter
--- OUTSIDE RECORDS SUMMARY | 2025-11-16 17:44 | XMS_ITS | Encounter Summary ---
Author Organization [facility]ely [facility] Address [address] [place] [address] Care Team Providers Care Generator Man Name Role Phone Gurvinder Dominguez MD Primary Care Provider Ric Hidalgo MD Primary Care Provider [phone] Grayson Meza Primary Care Provider [phone] Grayson Meza Unavailable [phone] Encounter Details Date Type Department Care Team (Late st Contact Info) Description 11/16/2013 Clinical Conversion Encounter GENERAL CONVERSION Margareth Salamanca RN Social History Tobacco Use Types Packs/Day Years Used Date Smoking Tobacco: Never Assessed Sex and Gender Information Value Date Recorded Sex Assigned at Male 10/31/2018 1:31 PM EST Legal Sex Male 6:42 AM EST Gender Identity Male 10/31/2018 1:31 PM EST Sexual Orientation Not on file documented as of this encounter Progress Notes * Margareth Salamanca RN - 01/05/2015 10:06 AM EST [id number],[facility] [place]. Anticoagulation Progress Report November 16, 2013 Name: Nick Solis Reason for Treatment: Atrial fibrillation INR Range: 2.0-3.0 Date: 2013-11-16 10:38 Location: [facility] INR: 1.70 Tablet Strength: 5 mg Next INR: 14 days 2013-11-30 Update Note: INR,FS 11/16; POC: Progress Note: met with pt 11/16 at POC: pt said he has taken warfarin as directed; no new meds; asked pt to take warfarin 10mg today,then dosing per sae; INR 11/30 at local lab; Dosage Out: :Leon-5mg:M-7.5mg:T-5mg:W-5mg:Th-5mg:F-5mg:Sa-5mg: ASSESSMENT:[place]ikh [place] Mary CLINICIAN:[place]ikh [place] Mary documented in this encounter Plan of Treatment Upcoming Encounters Date Type Department Care Team (Latest Contact Info) Description 03/11/2026 1:15 PM EDT Office Visit [facility] Division of Dermatology [facility] Dermatology [address] [facility], [address] [place] [address] Bernice Mark NP [address] [place] [address] In Person with Nurse Practitioner documented as of this encounter Visit Diagnoses Not on filedocumented in this encounter Care Teams Generator Man Relationship Specialty Start Date End Date Gurvinder Dominguez MD [address] [place] [address] PCP - General 09/27/14 07/03/15 Ric Hidalgo MD [address] [place] [address] PCP - General Internal Medicine 07/04/15 02/11/18 Grayson Meza [address] [place] [address] PCP - General 02/12/18 Grayson Meza [address] [place] [address] PCP - Insurance Assigned PCP 07/24/22 documented as of this encounter
--- OUTSIDE RECORDS SUMMARY | 2025-11-16 17:44 | XMS_ITS | Encounter Summary ---
Author Organization Nely Clark [facility] Address [address] [place] [address] Care Team Providers Care Welding Machine Operator Submerged Arc Name Role Phone Gurvinder Dominguez MD Primary Care Provider Ric Hidalgo MD Primary Care Provider [phone] Grayson Meza Primary Care Provider [phone] Grayson Meza Unavailable [phone] Encounter Details Date Type Department Care Team (Late st Contact Info) Description 02/04/2012 Clinical Conversion Encounter Department of Ophthalmology [facility] Ophthalmology 1 [facility] 4th [place] [address] Avle Diego OD [address] [place] [address] Social History Tobacco Use Types Packs/Day Years Used Date Smoking Tobacco: Never Assessed Sex and Gender Information Value Date Recorded Sex Assigned at Male 10/31/2018 1:31 PM EST Legal Sex Male 6:42 AM EST Gender Identity Male 10/31/2018 1:31 PM EST Sexual Orientation Not on file documented as of this encounter Progress Notes * Avel Diego OD - 01/01/2015 10:59 AM EST [id number],MICHAEL REVISED [facility] [place]. THIS OPHTHALMOLOGY NOTE IS VIEWABLE IN [facility] documented in this encounter Plan of Treatment Upcoming Encounters Date Type Department Care Team (Latest Contact Info) Description 03/11/2026 1:15 PM EDT Office Visit [facility] Division of Dermatology [facility] [address] [facility], [address] [place] [address] Bernice Mark, VERONICA [address] [place] [address] In Person with Nurse Practitioner documented as of this encounter Visit Diagnoses Not on filedocumented in this encounter Care Teams Welding Machine Operator Submerged Arc Relationship Specialty Start Date End Date Gurvinder Dominguez MD [address] [place] [address] PCP - General 09/27/14 07/03/15 Ric Hidalgo MD [address] [place] [address] PCP - General Internal Medicine 07/04/15 02/11/18 Grayson Meza [address] [place] [address] PCP - General 02/12/18 Grayson Meza [address] [place] [address] PCP - Insurance Assigned PCP 07/24/22 documented as of this encounter
--- OUTSIDE RECORDS SUMMARY | 2025-11-16 17:44 | XMS_ITS | Encounter Summary ---
Author Organization Nely Clark [facility] Address [address] [place] [address] Care Team Providers Care Jacquard Loom Carpet Weaver Name Role Phone Gurvinder Dominguez MD Primary Care Provider Ric Hidalgo MD Primary Care Provider [phone] Grayson Meza Primary Care Provider Grayson Meza Unavailable [phone] Encounter Details Date Type Department Care Team (Late st Contact Info) Description 11/17/2012 Clinical Conversion Encounter GENERAL CONVERSION Kate Be, RN [address] [place] [address] Social History Tobacco Use Types Packs/Day Years Used Date Smoking Tobacco: Never Assessed Sex and Gender Information Value Date Recorded Sex Assigned at Male 10/31/2018 1:31 PM EST Legal Sex Male 6:42 AM EST Gender Identity Male 10/31/2018 1:31 PM EST Sexual Orientation Not on file documented as of this encounter Progress Notes * Kate Be RN - 01/02/2015 11:10 PM EST [id number],[facility] [place]. Anticoagulation Progress Report November 19, 2012 Name: Nick Solis Reason for Treatment: Atrial fibrillation INR Range: 2.0-3.0 Date: 2012-11-17 11:08 Location: [facility] INR: 1.70 Tablet Strength: 5 mg Next INR: 16 days 2012-12-03 Progress Note: Spoke with pt can not acount for low INR; advised pt of 1xdose increase of 7.5mg tonoc then per dose sae; BRAEDEN 12/03, letter sent Dosage Out: :Leon-5mg:M-7.5mg:T-5mg:W-5mg:Th-5mg:F-5mg:Sa-5mg: ASSESSMENT:Osman Mcmullen Christine CLINICIAN:Indiana Radford Amy documented in this encounter Plan of Treatment Upcoming Encounters Date Type Department Care Team (Latest Contact Info) Description 03/11/2026 1:15 PM EDT Office Visit [facility] Division of Dermatology [facility] 67 [facility], [address] [place] [address] Bernice Mark NP [address] [place] [address] In Person with Nurse Practitioner documented as of this encounter Procedures Procedure Name Priority Date/Time Associated Diagnosis Comments PROTIME-INR Routine 11/17/2012 9:34 AM EST documented in this encounter Results * (ABNORMAL) ProTime-INR (11/17/2012 9:34 AM EST) INR 1.7(H) <1.3 INR [facility] Comment:[facility] 11/17/2012 9:34 AM EST 11/17/2012 9:40 AM EST us Abdullahi Wood MD LAB BLOOD ORDERABLES Final Resul t SUNQUEST documented in this encounter Visit Diagnoses Not on filedocumented in this encounter Care Teams Jacquard Loom Carpet Weaver Relationship Specialty Start Date End Date Gurvinder Dominguez MD [address] [place] [address] PCP - General 09/27/14 07/03/15 Ric Hidalgo MD [address] [place] [address] PCP - General Internal Medicine 07/04/15 02/11/18 Grayson Meza [facility] [place] [address] PCP - General 02/12/18 Grayson Meza [address] [place] [address] PCP - Insurance Assigned PCP 07/24/22 documented as of this encounter
--- OUTSIDE RECORDS SUMMARY | 2025-11-16 17:44 | XMS_ITS | Encounter Summary ---
Author Organization Nely Clark [facility] Address [address] [place] [address] Care Team Providers Care Habitat Conservation Planner Name Role Phone Gurvinder Dominguez MD Primary Care Provider Ric Hidalgo MD Primary Care Provider [phone] Grayson Meza Primary Care Provider [phone] Grayson Meza Unavailable [phone] Encounter Details Date Type Department Care Team (Late st Contact Info) Description 11/19/2013 Clinical Conversion Encounter [facility] Division [facility]erm[facility] Dermatology [address] [facility], [address] [place] [address] Sera Dobbins MD Social History Tobacco Use Types Packs/Day Years Used Date Smoking Tobacco: Never Assessed Sex and Gender Information Value Date Recorded Sex Assigned at Male 10/31/2018 1:31 PM EST Legal Sex Male 6:42 AM EST Gender Identity Male 10/31/2018 1:31 PM EST Sexual Orientation Not on file documented as of this encounter Progress Notes * Sera Dobbins MD - 01/12/2015 4:31 PM EST [id number] [place] [place] History of Present Illness 68 year old patient with history of squamous cell carcinoma requests check of all of his skin. He complains of actinic keratosis on right lower eyelid present for a few months without change. Past Medical History 2 basal cell carcinomas, treated in the back several years ago. Current Meds Aspirin 81 MG Oral Tablet; Therapy: (Recorded:27Apr2011) to Atorvastatin Calcium 80 MG Oral Tablet; ONE TABLET BY MOUTH DAILY; Therapy: 76Sbn5377 to (Last Rx:[id number]) Requested for: 36Wvo4373 Calcium TABS; Therapy: (Recorded:27Apr2011) to Carvedilol 25 MG Oral Tablet; take 2 tablets by mouth twice daily; Therapy: 93Xkj2018 to (Last Rx:32For2296) Requested for: 95Jwf5311 Digoxin 0.125 MG Oral Tablet; TAKE ONE TABLET DAILY IN ADDITION TO 0.25MG; Therapy: 04Oct2009 to (Last Rx:00Kyh5457) Requested for: 28Byo4095 Digoxin 0.25 MG Oral Tablet; TAKE 1 TABLET DAILY; Therapy: 51Cem3063 to (Evaluate:55Fci3346) Requested for: 45Ckw0807; Last Rx:05Jbc0100 Imiquimod 5 % External Cream; apply once packet per side of face once weekly overnight; Therapy: 17Jan2010 to (Evaluate:17Oct2012) Requested for: 15Sic1311; Last Rx:[id number] Multiple Vitamins Oral Tablet; Therapy: (Recorded:31Qgi7006) to Vitamin D CAPS; Therapy: (Recorded:82Mfs6465) to Warfarin Sodium 5 MG Oral Tablet; Take 1-2 tabs by mouth daily or as directed by Anticoagulation Clinic; Therapy: 21Nov2010 to (Evaluate:66Nnc1217) Requested for: 35Dnt1988; Last Rx:14Lsc4364 Allergies Cardizem TABS Review of Systems Denies new or changing skin lesions other than as described in HPI. Physical Exam Alert and oriented X 3. Normal mood. Normal body habitus. Examination on face, eyelids, israel of lips, neck ,chest, abdomen, back, upper and lower extremities bilaterally, hands and feet was notable for: At the right lateral to this there is a 3 mm pink keratotic macule. Similar lesions on both cheeks forehead and right ear and 7 other locations. Chest abdomen back shows occasional 2-4 mm light brown macule with slightly elevated papule. Number atypical features Assessment 1. Actinic Keratosis 702.0 2. Benign Skin Neoplasm Of The Trunk 216.5 Benign nevi on trunk. Actinic keratoses on face including right lower eyelid Plan I discussed cryosurgery for destruction of actinic keratoses with the patient including expected erythema, possible blistering, healing typically in 2 weeks for the face, longer healing phase for other body locations, risk of postinflammatory hypopigmentation or hyperpigmentation, risk of bleeding and infection, and risk of scarring. The patient had the opportunity to ask questions and voiced understanding of the procedure.Verbal consent was obtained. Liquid nitrogen 10 second freeze for destruction of the actinic keratoses in the locations noted. Patient tolerated the procedure well and there were no immediated complications. There was no blood loss.Patient was instructed to call if the lesions do not resolve within one month. Written instructions for post procedure care given. 8 lesions treated. Discussed expected edema at eyelid for the next couple of days. The nature of these benign skin lesions was discussed with the patient who was reassured. Encourage continuing sun protection followup one year Signatures Electronically signed by : SERA DOBBINS MD; Nov 19 2013 12:58PM documented in this encounter Plan of Treatment Upcoming Encounters Date Type Department Care Team (Latest Contact Info) Description 03/11/2026 1:15 PM EDT [facility] Division [facility]erm[facility] Dermatology [address] [facility], [address] [place] [address] Bernice Mark NP [address] [place] [address] In Person with Nurse Practitioner documented as of this encounter Visit Diagnoses Not on filedocumented in this encounter Care Teams Habitat Conservation Planner Relationship Specialty Start Date End Date Gurvinder Dominguez MD [address] [place] [address] PCP - General 09/27/14 07/03/15 Ric Hidalgo MD [address] [place] [address] PCP - General Internal Medicine 07/04/15 02/11/18 Grayson Meza [address] [place] [address] PCP - General 02/12/18 Grayson Meza [address] [place] [address] PCP - Insurance Assigned PCP 07/24/22 documented as of this encounter
--- OUTSIDE RECORDS SUMMARY | 2025-11-16 17:44 | XMS_ITS | Encounter Summary ---
Author Organization Nely Clark [facility] Address [address] [place] [address] Care Team Providers Care Debt Management Counselor Name Role Phone Gurvinder Dominguez MD Primary Care Provider Ric Hidalgo MD Primary Care Provider [phone] Grayson Meza Primary Care Provider [phone] Grayson Meza Unavailable [phone] Encounter Details Date Type Department Care Team (Late st Contact Info) Description 10/01/2008 Clinical Conversion Encounter General Internal Medicine- [facility] General Internal Medicine [address] [place] [address] Gurvinder Dominguez MD [address] [place] [address] Social History Tobacco Use Types Packs/Day Years Used Date Smoking Tobacco: Never Assessed Sex and Gender Information Value Date Recorded Sex Assigned at Male 10/31/2018 1:31 PM EST Legal Sex Male 6:42 AM EST Gender Identity Male 10/31/2018 1:31 PM EST Sexual Orientation Not on file documented as of this encounter Discharge Summaries * Gurvinder Dominguez MD - 01/24/2015 2:40 PM EDT [id number] DARBY [place], [place]. DISCHARGE SUMMARY NAME: NICK SOLIS LC#: [id number] : 1945 ADMISSION DATE: 10/01/2008 DISCHARGE DATE: 10/10/2008 VISIT ID: [id number] ADDENDUM: Please see Dr. Mena's comprehensive discharge summary from 10/08/08. This is an addendum to that discharge summary. DISCHARGE DIAGNOSES: 1. Fever of unknown origin. 2. Atrial fibrillation paroxysmal, status post failed cardioversion x2. 3. Vasovagal syncope. DISCHARGE MEDICATIONS: 1. Digoxin 0.375 mg p.o. daily. 2. Coumadin 5 mg daily except for 7.5 mg on Saturday, Saturday, and . 3. Lisinopril 2.5 mg p.o. daily. 4. Zetia 10 mg daily. 5. Lipitor 40 mg p.o. daily. 6. Carvedilol 50 mg p.o. b.i.d. HOSPITAL COURSE: The patient continued to go in and out of atrial fibrillation on telemetry monitoring, although he was asymptomatic. He was seen in consultation by cardiology who recommended increasing his Coreg to maximum of 50 mg b.i.d. which is maximum allowed for the patient with a weight over 80 kg, which the patient meets this criteria. He did experience improvement in his rate control dropping occasionally to a pulse of 90, but also increasing to as high as 130 with exertional on occasions, again asymptomatic. His Coumadin remained therapeutic for the remainder of his hospital stay and it was felt that he could follow up outpatient cardiology for question of an ablation with pacer placement, as he has failed cardioversion x2 in the past as recently in June 2008. Please note his travel consultant for cardiology was Dr. Wood, the fellow was Dr. Li. The patient continued to spike fevers during his hospital stay. He was seen in consultation by infectious disease Dr. Claire, who agreed with the work up-to-date and felt that the patient will require further evaluation on discharge with a full body PET scan and possibly a temporal artery biopsy. His WBC count did come down to 11, however, his sedimentation rate remained elevated at 84 as did his alkaline phosphatase at 233. He does have several abnormalities on gastrointestinal imaging as well such as pancreatic cyst complex with recommended followup MRCP in 3 months and a slightly irregular gallbladder wall thickening, which recommended interval ultrasound followup in a fasting state in the future. The patient has been taking antipyretics as needed, then will continue do so in discharge. DISCHARGE DISPOSITION: To home without services. DISCHARGE STATUS: Improved, stable. DISCHARGE INSTRUCTIONS: The patient will follow up with his new cardiology team here at [facility] who is transferring his care here, he will see Dr. Li in the business process manager's clinic and he will see Dr. Claire on 10/13/08 in followup. He will also be scheduled for a PET scan and will need a followup MRCP to follow up his pancreatic cyst in about 3 months. Gurvinder Dominguez MD [phone] [id number] J: [id number] CC: KENYON GALE, <Primary Care Physician> THIS DOCUMENT WAS ELECTRONICALLY AUTHENTICATED BY Gurvinder Dominguez MD ON 10/11/2008 16:12:14 THIS DOCUMENT WAS ELECTRONICALLY AUTHENTICATED BY Gurvinder Dominguez MD ON 12/10/2008 15:04:40 NICK SOLIS 10/10/2008 # [id number] DISCHARGE SUMMARY [facility] * [address] [place] [address] * [phone] Page 2 of 2 documented in this encounter Plan of Treatment Upcoming Encounters Date Type Department Care Team (Latest Contact Info) Description 03/11/2026 1:15 PM EDT Office Visit [facility] Division of Dermatology [facility] Dermatology [address] [facility], [address] [place] [address] Bernice Mark NP [address] [place] [address] In Person with Nurse Practitioner documented as of this encounter Visit Diagnoses Not on filedocumented in this encounter Care Teams Debt Management Counselor Relationship Specialty Start Date End Date Gurvinder Dominguez MD [address] [place] [address] PCP - General 09/27/14 07/03/15 Ric Hidalgo MD 41 [facility] [place] [address] PCP - General Internal Medicine 07/04/15 02/11/18 Grayson Meza [address] [place] [address] PCP - General 02/12/18 Grayson Meza [address] [place] [address] PCP - Insurance Assigned PCP 07/24/22 documented as of this encounter
--- OUTSIDE RECORDS SUMMARY | 2025-11-16 17:44 | XMS_ITS | Encounter Summary ---
Author Organization Nely Clark [facility] Address [address] [place] [address] Care Team Providers Care Retail Special Event Associate Name Role Phone Gurvinder Dominguez MD Primary Care Provider Ric Hidalgo MD Primary Care Provider [phone] Grayson Meza Primary Care Provider [phone] Grayson Meza Unavailable [phone] Encounter Details Date Type Department Care Team (Late st Contact Info) Description 10/06/2012 Clinical Conversion Encounter GENERAL CONVERSION Priya Tatum, RN [address] [place] [address] Social History Tobacco Use Types Packs/Day Years Used Date Smoking Tobacco: Never Assessed Sex and Gender Information Value Date Recorded Sex Assigned at Male 10/31/2018 1:31 PM EST Legal Sex Male 6:42 AM EST Gender Identity Male 10/31/2018 1:31 PM EST Sexual Orientation Not on file documented as of this encounter Progress Notes * Priya Tatum RN - 01/02/2015 3:42 PM EST [id number],[facility] [place] [place]. Anticoagulation Progress Report October 06, 2012 Name: Nick Solis Reason for Treatment: Atrial fibrillation INR Range: 2.0-3.0 Date: 2012-10-06 17:14 Location: [facility] INR: 2.50 Tablet Strength: 5 mg Next INR: 28 days 2012-11-03 Update Note: INR 10/06; Progress Note: met with pt 10/06; inr 11/03 Dosage Out: :Leon-5mg:M-7.5mg:T-5mg:W-5mg:Th-5mg:F-5mg:Sa-5mg: ASSESSMENT:Rc Velázquez Linda CLINICIAN:Rc Velázquez Linda documented in this encounter Plan of Treatment Upcoming Encounters Date Type Department Care Team (Latest Contact Info) Description 03/11/2026 1:15 PM EDT Office Visit [facility] Division of Dermatology [facility] Dermatology [address] [facility], [address] [place] [address] Bernice Mark NP [address] [place] [address] In Person with Nurse Practitioner documented as of this encounter Visit Diagnoses Not on filedocumented in this encounter Care Teams Retail Special Event Associate Relationship Specialty Start Date End Date Gurvinder Dominguez MD [address] [place] [address] PCP - General 09/27/14 07/03/15 Ric Hidalgo MD [address] [place] [address] PCP - General Internal Medicine 07/04/15 02/11/18 Grayson Meza [address] [place] [address] PCP - General 02/12/18 Grayson Meza [address] [place] [address] PCP - Insurance Assigned PCP 07/24/22 documented as of this encounter
--- OUTSIDE RECORDS SUMMARY | 2025-11-16 17:44 | XMS_ITS | Encounter Summary ---
Author Organization Nely Clark [facility] Address [address] [place] [address] Care Team Providers Care Cork Mixer Name Role Phone Gurvinder Gómez MD Primary Care Provider Ric Hidalgo MD Primary Care Provider [phone] Grayson Meza Primary Care Provider [phone] Grayson Meza Unavailable [phone] Encounter Details Date Type Department Care Team (Late st Contact Info) Description 10/06/2012 Clinical Conversion Encounter General Internal Medicine- General Internal Medicine [address] [place] [address] Gurvinder Gómez MD [address] [place] [address] Social History Tobacco Use Types Packs/Day Years Used Date Smoking Tobacco: Never Assessed Sex and Gender Information Value Date Recorded Sex Assigned at Male 10/31/2018 1:31 PM EST Legal Sex Male 6:42 AM EST Gender Identity Male 10/31/2018 1:31 PM EST Sexual Orientation Not on file documented as of this encounter Progress Notes * Gurvinder Gómez MD - 01/02/2015 3:42 PM EST [id number] SOLIS [facility] [place] [place]. History of Present Illness 67-year-old male comes in today for physical. Interval history his past years been fairly unremarkable he saw his travograph operator in the spring blood work was unremarkable and stable he has a followup scheduled for later this winter. He would like to get a flu shot and in shingle shot today. Active Problems Atrial Fibrillation 427.31 ATRIAL FIBRILLATION - 427.31 CABG (CABG) Coronary Arteriosclerosis 414.00 CORON ATHEROSCLER NOS TYPE VESSEL, IQUGMIUT OR GRAFT - 414.00 Essential Hypercholesterolemia 272.0 Hypertension 401.9 HYPERTENSION NOS - 401.9 Osteopenia 733.90 Sebaceous Cyst 706.2 Temporal Arteritis 446.5 GIANT CELL ARTERITIS - 446.5 Vaccines Prophylactic Need Against Influenza V04.81 Visit For: Screening Exam Malignant Neoplasm Prostate V76.44 Vitamin D Deficiency 268.9 VITAMIN D DEFICIENCY NOS - 268.9 Past Medical History Destruct Of Benign Lesion By Any Method Second Through 14 DESTRUC PREMALIGNAT LES 2ND -14 - 87175 Destruction Of Benign Lesion By Any Method 15 Or More Lesion 15/GREATER THAN LES,DESTRUCTN PREMALIG LES; - 94840 Surgical History CABG (CABG) LIGATION OR BIOPSY TEMPORAL ARTERY - 63155 LIGATION OR BIOPSY TEMPORAL ARTERY - 80536 SCAN COMPUT OPHTH DIAG IMAG POST SEG,INTERP&REP,OPTIC NERV, UNI OR BILAT,PROF - 02734 CAN COMPUT OPHTH DIAG IMAG POST SEG,INTERP&REP,OPTIC NERV, UNI OR BILAT,PROF - 93861 SIMPL REPR SCLP&/TRUNK; < 2.5 CM - 94488 IMPL REPR SCLP&/TRUNK; < 2.5 CM - 17799 Screening colonoscopy 2008 up in [place] was negative followup recommended in 10 years. Current Meds Aspirin 81 MG Oral Tablet; Therapy: (Recorded:27Apr2011) to Recorded; Dispense: 0 Days ; #: Sufficient TABS; Refill: 0; Record; Last Updated By: Barbi Fortune Atorvastatin Calcium 80 MG Oral Tablet; ONE TABLET BY MOUTH DAILY; Therapy: 25Dec2011 to (Last Rx:05Aug2012) Requested for: 05Aug2012 Ordered; Rx By: GURVINDER GÓMEZ; Dispense: 0 Days ; #:90 Tablet; Refill: 3; Verified Transmission to [facility] (Mail Order) Calcium TABS; Therapy: (Recorded:27Apr2011) to Recorded; Dispense: 0 Days ; #: Sufficient TABS; Refill: 0; Record; Last Updated By: Barbi Fortune Carvedilol 25 MG Oral Tablet; take 2 tablets by mouth twice daily; Therapy: 38Few4229 to (Last Rx:05Aug2012) Requested for: 05Aug2012 Ordered; Rx By: GURVINDER GÓMEZ; Dispense: 0 Days ; #:360 Tablet; Refill: 3; Verified Transmission to [facility] (Mail Order) Digoxin 0.125 MG Oral Tablet; TAKE ONE TABLET DAILY IN ADDITION TO 0.25MG; Therapy: 04Oct2009 to (Last Rx:05Aug2012) Requested for: 05Aug2012 Ordered; Rx By: GURVINDER GÓMEZ; Dispense: 0 Days ; #:90 Tablet; Refill: 3; Verified Transmission to [facility] (Mail Order) Digoxin 0.25 MG Oral Tablet; TAKE 1 TABLET DAILY; Therapy: 01Jan2011 to (Evaluate:22Peo8208) Requested for: 05Aug2012; Last Rx:05Aug2012 Ordered; Rx By: GURVINDER GÓMEZ; Dispense: 90 Days ; #:90 Tablet; Refill: 3; Verified Transmission to [facility] (Mail Order) Imiquimod 5 % External Cream; apply once packet per side of face once weekly overnight; Therapy: 17Jan2010 to (Evaluate:17Oct2012) Requested for: 27Tkx0425; Last Rx:84Ntv1410 Ordered; Rx By: MAVERICK AYALA; Dispense: 90 Days ; #:1 X 24 EA Box; Refill: 3; Verified Transmission to [facility] last seen on 01/17/10 next appt 07/26/11 Multiple Vitamins Oral Tablet; Therapy: (Recorded:60Gby9324) to Recorded; Dispense: 0 Days ; #: Sufficient TABS; Refill: 0; Record; Last Updated By: MAVERICK AYALA Vitamin D CAPS; Therapy: (Recorded:85Shc6619) to Recorded; Dispense: 0 Days ; #: Sufficient CAPS; Refill: 0; Record; Last Updated By: MAVERICK AYALA Warfarin Sodium 5 MG Oral Tablet; Take 1-2 tabs by mouth daily or as directed by Anticoagulation Clinic; Therapy: 21Nov2010 to (Evaluate:83Eqg2988) Requested for: 72Mkc6825; Last Rx:56Pft4049 Ordered; Rx By: GURVINDER GÓMEZ; Dispense: 90 Days ; #:180 Tablet; Refill: 3; Verified Transmission to [facility] (Mail Order) pt requests printed script and will bpick up in clinic later today. 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 He was at home with his . He exercises regularly walking several miles per day. He avoids all alcohol and tobacco products. Family History Paternal history of Cataract Maternal history of Cataract Paternal uncle's history of Diabetes Mellitus V18.0 Denied Family history of Glaucoma Family history of Macular Degeneration His son is healthy moved out of the house. Review of Systems He denies any headaches, changes in vision or hearing, chest pains, palpitations lightheadedness abdominal pains, change in bowel or bladder habits. He does have chronic nocturia 2-3 times per night which is not significantly bothersome. [employer] [facility] Vitals Data Includes: Current Encounter 06Oct2012 03:10PM Systolic 94 Diastolic 60 BMI Calculated 31.8 BSA Calculated 2.05 Height 5 ft 7.5 in Weight 205 lb Chaperoned During Appointment No Pain Score 0 Allergy Status Reviewed Yes Safe at Home Yes Physical Exam General Appearance: Comfortable,no apparent distress Skin: no suspicious hyperpigmented lesions. HEENT: Ears: Normal tympanic membrane and canal. Oropharynx: Clear. Neck: No adenopathhy or goiter. No carotid bruits Chest: Clear to percussion and auscultation. Cardiac: Normal S1 and S2. No murmurs or extra heart sounds Abdomen: Soft, Nontender. No hepatosplenomegaly. Genitourinary: Normal testes, no hernia. Rectal: No blood Normal prostate. No nodules. Symmetric gland 2+ Extremities: No edema. Dorsalis pedis pulse intact 2+ Neurologic: Cranial nerves II through XII nonfocal. Deep tendon reflexes symmetric in upper and lower extremeties. No focal motor or sensory deficits in the upper and lower extremities. Assessment 1. Health Maintenance V70.0 2. Visit For: Screening Exam Malignant Neoplasm Prostate V76.44 3. Vaccines Prophylactic Need Against Influenza V04.81 67-year-old male with hypertension, A. fib, CAD status post CABG all stable and being medically managed. Plan We'll update some blood work today. His fasting lipid panel was done last spring and will not be repeated. Influenza 0.5 mL intramuscular administered personally by me to the left deltoid no complications. He will have his shingle shot done today as well. Continue to see him back annually, sooner as needed. Signatures Electronically signed by : GURVINDER GÓMEZ MD; Oct 06 2012 4:03PM documented in this encounter Plan of Treatment Upcoming Encounters Date Type Department Care Team (Latest Contact Info) Description 03/11/2026 1:15 PM EDT [facility] Division of Dermatology Dermatology [address] [facility], [address] [place] [address] Bernice Mark NP [address] [place] [address] In Person with Nurse Practitioner documented as of this encounter Procedures Procedure Name Priority Date/Time Associated Diagnosis Comments POCI INR Routine 10/06/2012 5:16 PM EST VITAMIN D,25OH Routine 10/06/2012 4:20 PM EST PSA SCREEN (>50, ONCE/YEAR) Routine 10/06/2012 4:20 PM EST CBC Routine 10/06/2012 4:20 PM EST BASIC METABOLIC PANEL Routine 10/06/2012 4:20 PM EST documented in this encounter Results * (ABNORMAL) POCT INR (10/06/2012 5:16 PM EST) INR (POC) Conversion 2.5(H) <1.3 INR [facility] Comment[facility] 10/06/2012 5:16 PM EST 10/06/2012 6:07 PM EST Abdullahi Wood MD POCT ORDERABLES - DEVICE Final R esult Performing Organization Address [facility] de Phone Number SUNQUEST * Vitamin D, 25-OH (10/06/2012 4:20 PM EST) 25OH D2 CONCENTRATION LESS THAN DETECTION LIMIT OF THE METHOD. NG/ML [facility] 25OH D3 39 NG/ML [facility] 25OH D Total 39 20 - 60 NG/ML [facility] Comment: Low <20 ng/mL Borderline 20-29 ng/mL Normal 30-60 ng/mL 10/06/2012 4:20 PM EST 10/06/2012 4:37 PM EST Gurvinder Gómez MD LAB BLOOD ORDERABLES F inal Result Performing Organization Address [facility] Phone Number SUNQUEST * PSA Screen (>50, once/year) (10/06/2012 4:20 PM EST) Prostate Specific Ag 0.5 0.1 - 5.0 NG/ML [facility] 10/06/2012 4:20 PM EST 10/06/2012 4:37 PM EST Gurvinder Gómez MD LAB BLOOD ORDERABLES F inal Result Performing Organization Address [facility] de Phone Number SUNQUEST * Basic Metabolic Panel (10/06/2012 4:20 PM EST) Sodium 140 135 - 146 MMOL/L [facility] Potassium, Plasma 4.9 3.4 - 5.2 MMOL/L [facility] Chloride 104 98 - 110 MMOL/L [facility] Total CO2 31 24 - 32 MMOL/L [facility] Anion Gap 5 2 - 15 MMOL/L [facility] BUN 16 8 - 24 MG/DL [facility] Creatinine 0.7 0.6 - 1.3 MG/DL [facility] Glucose, Blood 80 70 - 100 MG/DL [facility] Calcium 9.3 8.4 - 10.4 MG/DL [facility] GFR -Amer >60 >60 ML/MIN [facility] GFR Non -Amer >60 >60 ML/MIN [facility] 10/06/2012 4:20 PM EST 10/06/2012 4:37 PM EST Gurvinder Gómez MD LAB BLOOD ORDERABLES F inal Result [facility]QUEST * (ABNORMAL) CBC (10/06/2012 4:20 PM EST) WBC 7.77 4.4 - 11.3 K/uL [facility] RBC 4.36(L) 4.50 - 5.90 M/uL [facility] Hemoglobin 13.7(L) 13.8 - 17.4 G/DL [facility] Hematocrit 40.9 41.0 - 51.0 % [facility] MCV 94 80 - 96 FL [facility] Platelet Count 180 150 - 450 K/uL [facility] RDW 14.4(H) 11.6 - 14.6 % [facility] 10/06/2012 4:20 PM EST 10/06/2012 4:37 PM EST Gurvinder Gómez MD LAB BLOOD ORDERABLES F inal Result Performing Organization Address City/[facility]/ZIP Co de Phone Number SUNQUEST documented in this encounter Visit Diagnoses Not on filedocumented in this encounter Care Teams Cork Mixer Relationship Specialty Start Date End Date Gurvinder Gómez MD [address] [place] [address] PCP - General 09/27/14 07/03/15 Ric Hidalgo MD [address] [place] [address] PCP - General Internal Medicine 07/04/15 02/11/18 Grayson Meza [facility] [place] [address] PCP - General 02/12/18 Grayson Meza [address] [place] [address] PCP - Insurance Assigned PCP 07/24/22 documented as of this encounter
--- OUTSIDE RECORDS SUMMARY | 2025-11-16 17:44 | XMS_ITS | Encounter Summary ---
Author Organization Nely Clark [facility] Address [address] [place] [address] Care Team Providers Care Marine Steamfitter Name Role Phone Gurvinder Dominguez MD Primary Care Provider Ric Hidalgo MD Primary Care Provider [phone] Grayson Meza Primary Care Provider [phone] Grayson Meza Unavailable [phone] Encounter Details Date Type Department Care Team (Late st Contact Info) Description 11/29/2008 Clinical Conversion Encounter [facility] Division of Vascular Surgery - [facility] Vascular Surgery [address] [place] [address] Jamal Gee MD Social History Tobacco Use Types Packs/Day Years Used Date Smoking Tobacco: Never Assessed Sex and Gender Information Value Date Recorded Sex Assigned at Male 10/31/2018 1:31 PM EST Legal Sex Male 6:42 AM EST Gender Identity Male 10/31/2018 1:31 PM EST Sexual Orientation Not on file documented as of this encounter Miscellaneous Notes * Op Note - Jamal Gee MD - 01/24/2015 2:40 PM EDT [id number],[place], [place]. OPERATIVE REPORT NAME: NICK SOLIS DATE: 11/29/2008 LC#: [id number] : 1945 VISIT ID: [id number] SECOND VISIT ID: [id number] SURGEON: Jamal Gee MD FACILITIES OPERATIONS TECHNICIAN: N/A PREOPERATIVE DIAGNOSIS: TEMPORAL ARTERITIS. POSTOPERATIVE DIAGNOSIS: SAME. PROCEDURE: BILATERAL TEMPORAL ARTERY BIOPSIES. INDICATIONS: Temporal arteritis. ESTIMATED BLOOD LOSS: N/A ANESTHESIA: Local COMPLICATIONS: None. SPECIMENS: N/A PROCEDURE: The patient was brought to ER of the minor surgical suite. We did the right temporal artery biopsy first. This side was prepped and draped, and 1% Xylocaine was used as a local anesthetic. An incision was made over the temporal artery. The dissection carried down to the temporal artery and side branches were divided and ligated. The artery was ligated proximally and distally, and removed and sent to Pathology. Hemostasis was assured. The incision to this was then closed with interrupted 4-0 Dexon in the subcutaneous tissue and a running 4-0 subcuticular Maxon. Dermabond was placed on the skin. The drapes were removed and the procedure was repeated on the left side. After the Dermabond was placed on this side. The patient was discharged to the outpatient in satisfactory condition having tolerated this procedure without any complications. Jamal Gee MD [phone] ERJ:[id number] J: [id number] CC: Bella Wei MD, <Referring> Gurvinder Dominguez MD, <Primary Care Physician> THIS DOCUMENT WAS ELECTRONICALLY AUTHENTICATED BY Jamal Gee MD ON 12/28/2008 16:06:50 NICK SOLIS 11/29/2008 # [id number] documented in this encounter Plan of Treatment Upcoming Encounters Date Type Department Care Team (Latest Contact Info) Description 03/11/2026 1:15 PM EDT Office Visit [facility] Division of Dermatology [place] [facility] [address] [facility], [address] [place] [address] Bernice Mark NP [address] [place] [address] In Person with Nurse Practitioner documented as of this encounter Visit Diagnoses Not on filedocumented in this encounter Care Teams Marine Steamfitter Relationship Specialty Start Date End Date Gurvinder Dominguez MD [address] [place] [address] PCP - General 09/27/14 07/03/15 Ric Hidalgo MD [address] [place] [address] PCP - General Internal Medicine 07/04/15 02/11/18 Grayson Meza [address] [place] [address] PCP - General 02/12/18 Grayson Meza [address] [place] [address] PCP - Insurance Assigned PCP 07/24/22 documented as of this encounter
--- OUTSIDE RECORDS SUMMARY | 2025-11-16 17:44 | XMS_ITS | Encounter Summary ---
Author Organization Nely Clark [facility] Address [address] [place] [address] Care Team Providers Care Second Mate Name Role Phone Gurvinder Dominguez MD Primary Care Provider Ric Hidalgo MD Primary Care Provider [phone] Grayson Meza Primary Care Provider Grayson Meza Unavailable [phone] Encounter Details Date Type Department Care Team (Late st Contact Info) Description 05/23/2012 Clinical Conversion Encounter Department of Ophthalmology [facility] Ophthalmology [address] [place] [address] Chencho Hernandez, OD [address] [place] [address] Social History Tobacco Use Types Packs/Day Years Used Date Smoking Tobacco: Never Assessed Sex and Gender Information Value Date Recorded Sex Assigned at Male 10/31/2018 1:31 PM EST Legal Sex Male 6:42 AM EST Gender Identity Male 10/31/2018 1:31 PM EST Sexual Orientation Not on file documented as of this encounter Progress Notes * Chencho Hernandez, OD - 01/02/2015 12:16 AM EST [id number],[facility]HAEL [facility] [place], [place]. THIS OPHTHALMOLOGY NOTE IS VIEWABLE IN [facility] documented in this encounter Plan of Treatment Upcoming Encounters Date Type Department Care Team (Latest Contact Info) Description 03/11/2026 1:15 PM EDT Office Visit [facility] Division of Dermatology [place] [facility] [address] [facility], [address] [place] [address] Bernice Mark, VERONICA [address] [place] [address] In Person with Nurse Practitioner documented as of this encounter Visit Diagnoses Not on filedocumented in this encounter Care Teams Second Mate Relationship Specialty Start Date End Date Gurvinder Dominguez MD [address] [place] [address] PCP - General 09/27/14 07/03/15 Ric Hidalgo MD [address] [place] [address] PCP - General Internal Medicine 07/04/15 02/11/18 Grayson Meza [address] [place] [address] PCP - General 02/12/18 Grayson Meza [address] [place] [address] PCP - Insurance Assigned PCP 07/24/22 documented as of this encounter
--- OUTSIDE RECORDS SUMMARY | 2025-11-16 17:44 | XMS_ITS | Encounter Summary ---
Author Organization Nely Clark [facility] Address [address] [place] [address] Care Team Providers Care Biomass Power Plant Superintendent Name Role Phone Gurvinder Dominguez MD Primary Care Provider Ric Hidalgo MD Primary Care Provider [phone] Grayson Meza Primary Care Provider Grayson Meza Unavailable [phone] Encounter Details Date Type Department Care Team (Late st Contact Info) Description 05/05/2014 Clinical Conversion Encounter GENERAL CONVERSION Aleena Brown [...] Progress Notes * Aleena Brown RN - 01/13/2015 2:15 PM EST [id number],[facility]EL [facility] [place]. Anticoagulation Progress Report May 05, 2014 Name: Nick Solis Reason for Treatment: Atrial fibrillation INR Range: 2.0-3.0 Date: 2014-05-05 08:15 Location: [facility] INR: 2.00 Tablet Strength: 5 mg Next INR: 56 days 2014-06-30 Update Note: INR 05/04 [facility]; fax Progress Note: 05/05 2:54pm Letter sent;advised per current weekly dose. Next INR 06/30. Dosage Out: :Leon-5mg:M-7.5mg:T-5mg:W-5mg:Th-5mg:F-5mg:Sa-5mg: ASSESSMENT:Fran Murray Gail CLINICIAN:Kevin Adams Deborah documented in this encounter Plan of Treatment Upcoming Encounters Date Type Department Care Team (Latest Contact Info) Description 03/11/2026 1:15 PM EDT Office Visit [facility] Division of Dermatology [facility] [address] [facility], [address] [place] [address] Bernice Mark, VERONICA [address] [place] [address] In Person with Nurse Practitioner documented as of this encounter Visit Diagnoses Not on filedocumented in this encounter Care Teams Biomass Power Plant Superintendent Relationship Specialty Start Date End Date Gurvinder Dominguez MD [address] [place] [address] PCP - General 09/27/14 07/03/15 Ric Hidalgo MD [address] [place] [address] PCP - General Internal Medicine 07/04/15 02/11/18 Grayson Meza [address] [place] [address] PCP - General 02/12/18 Grayson Meza [address] [place] [address] PCP - Insurance Assigned PCP 07/24/22 documented as of this encounter
--- OUTSIDE RECORDS SUMMARY | 2025-11-16 17:44 | XMS_ITS | Encounter Summary ---
Author Organization Nely Clark [facility] Address [address] [place] [address] Care Team Providers Care General Production Worker Name Role Phone Gurvinder Dominguez MD Primary Care Provider Ric Hidalgo MD Primary Care Provider [phone] Grayson Meza Primary Care Provider [phone] Grayson Meza Unavailable [phone] Encounter Details Date Type Department Care Team (Late st Contact Info) Description 06/12/2014 Clinical Conversion Encounter GENERAL CONVERSION Shirley Chaudhari [...] Notes * Shirley Chaudhari RN - 01/13/2015 6:04 PM EST [id number],[facility]EL [facility] - . Anticoagulation Progress Report June 12, 2014 Name: Irma Frakn Reason for Treatment: Atrial fibrillation INR Range: 2.0-3.0 Date: 2014-06-12 08:22 Location: [facility] INR: 2.60 Tablet Strength: 5 mg Next INR: 55 days 2014-08-06 Update Note: INR 06/11 [facility];fax Progress Note: 06/11 Letter sent, Next Inr 08/06 Dosage Out: :Leon-5mg:M-7.5mg:T-5mg:W-5mg:Th-5mg:F-5mg:Sa-5mg: ASSESSMENT:[id number] Marty CLINICIAN:Watson Sawyer Diane documented in this encounter Plan of Treatment Upcoming Encounters Date Type Department Care Team (Latest Contact Info) Description 03/11/2026 1:15 PM EDT Office Visit [facility] Division of Dermatology [facility] [address] [facility], [address] [place] [address] Bernice Mark NP [address] [place] [address] In Person with Nurse Practitioner documented as of this encounter Visit Diagnoses Not on filedocumented in this encounter Care Teams General Production Worker Relationship Specialty Start Date End Date Gurvinder Dominguez MD [address] [place] [address] PCP - General 09/27/14 07/03/15 Ric Hidalgo MD [address] [place] [address] PCP - General Internal Medicine 07/04/15 02/11/18 Grayson Meza [address] [place] [address] PCP - General 02/12/18 Grayson Meza [address] [place] [address] PCP - Insurance Assigned PCP 07/24/22 documented as of this encounter
--- OUTSIDE RECORDS SUMMARY | 2025-11-16 17:44 | XMS_ITS | Encounter Summary ---
Author Organization Nely Clark [facility] Address [address] [place] [address] Care Team Providers Care Legal Associate Name Role Phone Gurvinder Dominguez MD Primary Care Provider Ric Hidalgo MD Primary Care Provider [phone] Grayson Meza Primary Care Provider [phone] Grayson Meza Unavailable [phone] Encounter Details Date Type Department Care Team (Late st Contact Info) Description 02/26/2014 Clinical Conversion Encounter GENERAL CONVERSION Priya Tatum, RN [address] [place] [address] Social History Tobacco Use Types Packs/Day Years Used Date Smoking Tobacco: Never Assessed Sex and Gender Information Value Date Recorded Sex Assigned at Male 10/31/2018 1:31 PM EST Legal Sex Male 6:42 AM EST Gender Identity Male 10/31/2018 1:31 PM EST Sexual Orientation Not on file documented as of this encounter Progress Notes * Priya Tatum RN - 01/13/2015 6:08 AM EST [id number],[facility] [place]. Anticoagulation Progress Report February 26, 2014 Name: Nick Solis Reason for Treatment: Atrial fibrillation INR Range: 2.0-3.0 Date: 2014-02-26 10:37 Location: [facility] INR: 3.30 Tablet Strength: 5 mg Next INR: 14 days 2014-03-12 Update Note: INR 4 Progress Note: met with pt 02/26; coumadin 2.5mg noris, then per sae, inr 03/12, will be in [place] Dosage Out: :Leon-5mg:M-7.5mg:T-5mg:W-5mg:Th-5mg:F-5mg:Sa-5mg: ASSESSMENT:Rc Velázquez Linda CLINICIAN:Rc Velázquez Linda documented in this encounter Plan of Treatment Upcoming Encounters Date Type Department Care Team (Latest Contact Info) Description 03/11/2026 1:15 PM EDT Office Visit [facility] Division of Dermatology [facility] [address] [facility], [address] [place] [address] Bernice Mark NP [address] [place] [address] In Person with Nurse Practitioner documented as of this encounter Visit Diagnoses Not on filedocumented in this encounter Care Teams Legal Associate Relationship Specialty Start Date End Date Gurvinder Dominguez MD [address] [place] [address] PCP - General 09/27/14 07/03/15 Ric Hidalgo MD [address] [place] [address] PCP - General Internal Medicine 07/04/15 02/11/18 Grayson Meza [address] [place] [address] PCP - General 02/12/18 Grayson Meza [address] [place] [address] PCP - Insurance Assigned PCP 07/24/22 documented as of this encounter
--- OUTSIDE RECORDS SUMMARY | 2025-11-16 17:45 | XMS_ITS | Encounter Summary ---
Author Organization Nely Clark [facility] Address [address] [place] [address] Care Team Providers Care Graduate Teacher Education Name Role Phone Gurvinder Dominguez MD Primary Care Provider Ric Hidalgo MD Primary Care Provider [phone] Grayson Meza Primary Care Provider [phone] Grayson Meza Unavailable [phone] Encounter Details Date Type Department Care Team (Late st Contact Info) Description 03/29/2011 Clinical Conversion Encounter Department of Ophthalmology [facility] Ophthalmology [address] [place] [address] Chencho Hernandez, OD [address] [place] [address] Social History Tobacco Use Types Packs/Day Years Used Date Smoking Tobacco: Never Assessed Sex and Gender Information Value Date Recorded Sex Assigned at Male 10/31/2018 1:31 PM EST Legal Sex Male 6:42 AM EST Gender Identity Male 10/31/2018 1:31 PM EST Sexual Orientation Not on file documented as of this encounter Progress Notes * Chencho Hernandez, BERNABE - 12/10/2014 8:49 AM EST [id number],MICHAEL REVISED [place]. THIS OPHTHALMOLOGY NOTE IS VIEWABLE IN [facility] documented in this encounter Plan of Treatment Upcoming Encounters Date Type Department Care Team (Latest Contact Info) Description 03/11/2026 1:15 PM EDT Office Visit [facility] Division of Dermatology [facility] [facility] [address] [facility], [address] [place] [address] Bernice Mark, VERONICA [address] [place] [address] In Person with Nurse Practitioner documented as of this encounter Visit Diagnoses Not on filedocumented in this encounter Care Teams Graduate Teacher Education Relationship Specialty Start Date End Date Gurvinder Dominguez MD [address] [place] [address] PCP - General 09/27/14 07/03/15 Ric Hidalgo MD [address] [place] [address] PCP - General Internal Medicine 07/04/15 02/11/18 Grayson Meza [address] [place] [address] PCP - General 02/12/18 Grayson Meza [address] [place] [address] PCP - Insurance Assigned PCP 07/24/22 documented as of this encounter
--- OUTSIDE RECORDS SUMMARY | 2025-11-16 17:45 | XMS_ITS | Encounter Summary ---
Author Organization Nely Clark [facility] Address [address] [place] [address] Care Team Providers Care Live Truck Operator Name Role Phone Gurvinder Dominguez MD Primary Care Provider Ric Hidalgo MD Primary Care Provider [phone] Grayson Meza Primary Care Provider [phone] Grayson Meza Unavailable [phone] Encounter Details Date Type Department Care Team (Late st Contact Info) Description 05/11/2011 Clinical Conversion Encounter Department of Ophthalmology [facility] Ophthalmology [address] [place] [address] Chencho Hernandez, OD [address] [place] [address] Social History Tobacco Use Types Packs/Day Years Used Date Smoking Tobacco: Never Assessed Sex and Gender Information Value Date Recorded Sex Assigned at Male 10/31/2018 1:31 PM EST Legal Sex Male 6:42 AM EST Gender Identity Male 10/31/2018 1:31 PM EST Sexual Orientation Not on file documented as of this encounter Progress Notes * Chencho Hernandez, BERNABE - 12/10/2014 12:18 PM EST [id number],MICHAEL REVISED [place]. THIS OPHTHALMOLOGY NOTE IS VIEWABLE IN [facility] documented in this encounter Plan of Treatment Upcoming Encounters Date Type Department Care Team (Latest Contact Info) Description 03/11/2026 1:15 PM EDT Office Visit [facility] Division of Dermatology [place] [facility] [address] [facility], [address] [place] [address] Bernice Mark, VERONICA [address] [place] [address] In Person with Nurse Practitioner documented as of this encounter Visit Diagnoses Not on filedocumented in this encounter Care Teams Live Truck Operator Relationship Specialty Start Date End Date Gurvinder Dominguez MD [address] [place] [address] PCP - General 09/27/14 07/03/15 Ric Hidalgo MD [address] [place] [address] PCP - General Internal Medicine 07/04/15 02/11/18 Grayson Meza [address] [place] [address] PCP - General 02/12/18 Grayson Meza [address] [place] [address] PCP - Insurance Assigned PCP 07/24/22 documented as of this encounter
--- OUTSIDE RECORDS SUMMARY | 2025-11-16 17:45 | XMS_ITS | Encounter Summary ---
Author Organization [facility]ely [facility] Address [address] [place] [address] Care Team Providers Care Drug Counselor Name Role Phone Gurvinder Dominguez MD Primary Care Provider Ric Hidalgo MD Primary Care Provider [phone] Grayson Meza Primary Care Provider [phone] Grayson Meza Unavailable [phone] Encounter Details Date Type Department Care Team (Latest Contact Info) Description 02/06/2011 Clinical Conversion Encounter Department of Cardiology [facility] Cardiology [address] [place] [address] Malcolm Zavaleta MD [address] [place] [id number] Coronary atherosclerosis of unspecified type of vessel, cowlitz or graft Social History Tobacco Use Types Packs/Day Years Used Date Smoking Tobacco: Never Assessed Sex and Gender Information Value Date Recorded Sex Assigned at Male 10/31/2018 1:31 PM EST Legal Sex Male 6:42 AM EST Gender Identity Male 10/31/2018 1:31 PM EST Sexual Orientation Not on file documented as of this encounter Progress Notes * Malcolm Zavaleta MD - 12/09/2014 10:35 PM EST [id number],MICHAEL [place], [place]. CARDIOLOGY NICK SOLIS 02/06/2011 # [id number] : 1945 Second Visit ID: [id number] Visit ID: [id number] The patient is a very pleasant 65-year-old gentleman seen here in routine followup. Patient's cardiac risk history is as follows: 1. History of coronary artery bypass surgery approximately six years ago. The patient also has a diagnosis of ischemic cardiomyopathy and was sent to bypass surgery at that time. He has a history of atrial fibrillation, status-post Maze procedure and cardioversion, and has had intermittent atrial fibrillation requiring Coumadin therapy. 2. Hypercholesterolemia with a family history of elevated cholesterol and had this checked recently with reinstitution of lipid therapy. The patient is doing quite well. He has had no symptoms of any angina. His last exercise tolerance test done approximately six months ago was unremarkable, although submaximal in his heart rate. 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 MEDICATIONS: Carvedilol 25 mg 2 tablets twice a day, warfarin 5 mg p.o. daily, digoxin 0.025 p.o. daily, Lipitor 80 mg p.o. daily, lisinopril 5 mg p.o. daily, prednisone, which was tapered off, and Fosamax. PHYSICAL EXAMINATION: Blood pressure 120/80. HEENT is unremarkable. Pulmonary exam was clear. Cardiac exam: Normal S1, normal S2, no S3, no rubs or gallops. No murmurs heard. Remainder of this exam essentially unremarkable. IMPRESSION: Stable from a cardiovascular point of view. I have suggested he have an exercise tolerance and lipid profile done and we will follow up in approximately one year's time. I have asked him to give me a call tomorrow so we can discuss the recent EKG and lab work. Ejection fraction on the last exercise tolerance test was 56%. Malcolm Zavaleta MD [phone] TCP:susi J: [id number] CC: Malcolm Zavaleta MD, <Referring> Gurvinder Dominguez MD, <Primary Care Physician> THIS DOCUMENT WAS ELECTRONICALLY AUTHENTICATED BY Malcolm Zavaleta MD ON 02/16/2011 13:50:55 PROGRESS NOTE [facility] * [address] [facility], [place] [address] * [phone] Page 1 of 1 documented in this encounter Plan of Treatment Upcoming Encounters Date Type Department Care Team (Latest Contact Info) Description 03/11/2026 1:15 PM EDT Office Visit [facility] Division of Dermatology [facility] Dermatology [address] [facility], [address] [place] [address] Bernice Mark NP [address] [place] [address] In Person with Nurse Practitioner documented as of this encounter Procedures Procedure Name Priority Date/Time Associated Diagnosis Comments LIPID PANEL Routine 02/06/2011 11:34 AM EDT ECG 12-LEAD Routine 02/06/2011 11:21 AM EDT Coronary atherosclerosis of unspecified type of vessel, cowlitz or graft documented in this encounter Results * Lipid Panel (02/06/2011 11:34 AM EDT) [facility] (CONVERSION) FASTING [facility] Triglycerides 105 55 - 150 MG/DL [facility] Cholesterol 154 130 - 200 MG/DL [facility] HDL Cholesterol 44 40 - 75 MG/DL [facility] Ratio Chol/HDL 3.5 2.0 - 5.0 [facility] Non-HDL Cholesterol 110 <190 MG/DL [facility] Comment: Normal primary prevention <190 mg/dL High risk primary prevention <160 mg/dL Secondary prevention <130 mg/dL High risk secondary prevention <100 mg/dL LDL Cholesterol 89 <130 MG/DL [facility] VLDL Cholesterol 21 MG/DL [facility] 02/06/2011 11:3 4 AM EDT 02/06/2011 11:40 AM EDT us Malcolm Zavaleta MD LAB BLOOD ORDERABLES Final Result [facility] * ECG 12 lead (02/06/2011 11:21 AM EDT) 02/06/2011 11:2 1 AM EDT Narrative CONVERSIONS FROM [facility] - 02/07/2011 8:58 AM EDT ATRIAL FIBRILLATION LEFT AXIS DEVIATION LEFT ANTERIOR SOLOMON-BLOCK INCOMPLETE RIGHT BUNDLE BRANCH BLOCK SEPTAL INFARCT , AGE UNDETERMINED ABNORMAL ECG WHEN COMPARED WITH ECG OF 07-DEC-2009 15:38, NO SIGNIFICANT CHANGE WAS FOUND Procedure Note Kevin Espinosa MD - 01/17/2015 ATRIAL FIBRILLATION LEFT AXIS DEVIATION LEFT ANTERIOR SOLOMON-BLOCK INCOMPLETE RIGHT BUNDLE BRANCH BLOCK SEPTAL INFARCT , AGE UNDETERMINED ABNORMAL ECG WHEN COMPARED WITH ECG OF 07-DEC-2009 15:38, NO SIGNIFICANT CHANGE WAS FOUND us Malcolm Zavaleta MD ECG ORDERABLES Final Resul t CONVERSIONS FROM [facility] documented in this encounter Visit Diagnoses Diagnosis Coronary atherosclerosis of unspecified type of vessel, cowlitz or graft documented in this encounter Care Teams Drug Counselor Relationship Specialty Start Date End Date Gurvinder Dominguez MD [address] [place] [address] PCP - General 09/27/14 07/03/15 Ric Hidalgo MD [address] [place] [address] PCP - General Internal Medicine 07/04/15 02/11/18 Grayson Meza [address] [place] [address] PCP - General 02/12/18 Grayson Meza [address] [place] [address] PCP - Insurance Assigned PCP 07/24/22 documented as of this encounter
--- OUTSIDE RECORDS SUMMARY | 2025-11-16 17:45 | XMS_ITS | Encounter Summary ---
Author Organization Nely Clark [facility] Address [address] [place] [address] Care Team Providers Care Terra Cotta Mold Maker Name Role Phone Gurvinder Dominguez MD Primary Care Provider Ric Hidalgo MD Primary Care Provider [phone] Grayson Meza Primary Care Provider [phone] Grayson Meza Unavailable [phone] Encounter Details Date Type Department Care Team (Late st Contact Info) Description 06/14/2015 Manufacturing Scheduler Only Encounter Department of Cardiology - Anticoagulation [address] [place] [address] Alyx Mcdaniels, RN Social History Tobacco Use Types Packs/Day Years Used Date Smoking Tobacco: Former Comments:pt quit 30years ago Alcohol Use Standard Drinks/Week Comments No 0 (1 standard drink = 0.6 oz pur e alcohol) Sex and Gender Information Value Date Recorded Sex Assigned at Male 10/31/2018 1:31 PM EST Legal Sex Male 6:42 AM EST Gender Identity Male 10/31/2018 1:31 PM EST Sexual Orientation Not on file documented as of this encounter Progress Notes * Alyx Mcdaniels RN - 06/14/2015 2:32 PM EDT Anticoagulation Progress Report June 14, 2015 Name: Nick Solis Reason for Treatment: Atrial fibrillation INR Range: 2.0-3.0 Date: 2015-06-14 14:32 Location: [facility] INR: 3.20 Tablet Strength: 5 mg Next INR: 28 days 2015-07-12 Update Note: 06/14 INR;poc Progress Note: 06/14 met w/pt,states eating more blueberries than usual,advise per dose schedule,letter reviewed,INR;07/12 Dosage Out: :Leon-5mg:M-7.5mg:T-5mg:W-5mg:Th-5mg:F-5mg:Sa-5mg: ASSESSMENT:Arslan Rose Maureen A CLINICIAN:Arslan Rose Maureen A documented in this encounter Plan of Treatment Upcoming Encounters Date Type Department Care Team (Latest Contact Info) Description 03/11/2026 1:15 PM EDT Office Visit [facility] Division of Dermatology [facility] Dermatology [address] [facility], [address] [place] [address] Bernice Mark NP [address] [place] [address] In Person with Nurse Practitioner documented as of this encounter Visit Diagnoses Not on filedocumented in this encounter Care Teams Terra Cotta Mold Maker Relationship Specialty Start Date End Date Gurvinder Dominguez MD [address] [place] [address] PCP - General 09/27/14 07/03/15 Ric Hidalgo MD [address] [place] [address] PCP - General Internal Medicine 07/04/15 02/11/18 Grayson Meza [address] [place] [address] PCP - General 02/12/18 Grayson Meza [address] [place] [address] PCP - Insurance Assigned PCP 07/24/22 documented as of this encounter
--- OUTSIDE RECORDS SUMMARY | 2025-11-16 17:45 | XMS_ITS | Encounter Summary ---
Author Organization Nely Clark [facility] Address [address] [place] [address] Care Team Providers Care White Washer Name Role Phone Gurvinder Dominguez MD Primary Care Provider Ric Hidalgo MD Primary Care Provider [phone] Grayson Meza Primary Care Provider [phone] Grayson Meza Unavailable [phone] Encounter Details Date Type Department Care Team (Late st Contact Info) Description 02/12/2010 Clinical Conversion Encounter GENERAL CONVERSION Terrence Lopez DO Social History Tobacco Use Types Packs/Day Years Used Date Smoking Tobacco: Never Assessed Sex and Gender Information Value Date Recorded Sex Assigned at Male 10/31/2018 1:31 PM EST Legal Sex Male 6:42 AM EST Gender Identity Male 10/31/2018 1:31 PM EST Sexual Orientation Not on file documented as of this encounter ED Notes * Terrence Lopez DO - 12/07/2014 12:36 PM EST [id number] SOLIS [facility] - [place], [place]. Clinical Report - Physicians/Mid Levels [facility] Emergency Department [address] [place] [address] 02/12/2010 Patient: NICK SOLIS : 1945 Sex: M FC: PPO Time Seen: 11 : 35 PM; initial patient contact. Arrived- By private vehicle. HISTORY OF PRESENT ILLNESS Chief Complaint- Injury to right hand. The injury happened just prior to arrival. The patient sustained a laceration from a sharp edge (broken plate while doing dishes). Occurred at home. Patient is not experiencing pain. Patient denies injury to the head or neck. No other injury. REVIEW OF SYSTEMS The patient sustained a laceration. No swelling, tingling, numbness, weakness or suspected foreign body. All systems otherwise negative, except as recorded above. PAST HISTORY See nurses notes. 1. History of FUO with elevated, sedimentation rate, CRP, transaminitis. Status post bilateral temporal artery biopsies 11/29/08, showing focal inflammation in the adventitia and outer muscle of the artery, focal asymmetric intimal hyperplasia, interruption and reduplication of the internal elastic membrane and special stain concerning for healed arteritis. 2. Coronary artery disease status post three-vessel CABG three years ago, history of ischemic cardiomyopathy with most recent echo showing normal left ventricular systolic function. 3. Atrial fibrillation on Coumadin. 4. Family history of psoriasis in a brother. 5. Abdominal CT changes in the ileum. Follow up with Dr. Forbes. No diagnosis, but ileal changes, resolved per imaging study 01/06/09. 6. Vitamin D deficiency: 25OH-vitamin D was 8, 12/03/08, antiendomysial negative. 7. Diverticulosis noted on CT 2008.. ADDITIONAL NOTES The nursing notes have been reviewed. PHYSICAL EXAM Appearance: Alert. No acute distress. Vital Signs: Have been reviewed ((97 % room air). BP: 128 / 80. HR: 81. RR: 14. Temp: 98.2 oral.). Extremities: Right hand. Right middle-ring finger web space: subcutaneous 1.0 cm laceration. No limitation in movement. Neurovascular not intact distally. Extremities otherwise negative. Neuro, Vascular and Tendons: Vascular status intact. Sensation intact. Motor intact. Tendon function intact. PROGRESS AND PROCEDURES Laceration Repair: Location: right middle finger. Time: 12 : 10 AM. Length: 1.0cm. Complexity: simple (local anesthesia used and sutured). Wound depth/shape- subcutaneous. Distal neuro/vascular/tendon status normal. Local anesthesia provided using 1% lidocaine. Wound explored, cleansed and irrigated extensively with normal saline. Closure of skin: interrupted 3-0 nylon (3 sutures). Post-procedure: he is stable and there are no complications. Bleeding is controlled and neuro-vascular status is intact distal to the wound. Clean dressing applied, following the application of antibiotic ointment. Secured with tape. Patient/family counseled. Additional history sought. Old medical records ordered. Disposition: Condition: fair. Discharged home in fair condition. CLINICAL IMPRESSION Superficial laceration to right middle finger. INSTRUCTIONS Protect wound and keep wound area clean. Change dressing daily. Keep wounds dry. Apply neosporin daily. Sutures should be removed in five days. No restrictions to activity. No dietary restrictions. Warnings: INFECTION: Watch for signs of infection (increasing heat and redness, pus-like drainage, swelling, or increased pain). Return or see your doctor if these signs occur. GENERAL WARNINGS: Return or contact your physician immediately if your condition worsens or changes unexpectedly, if not improving as expected, or if other problems arise. Follow-up: Follow up with your doctor 2 days for wound check and 5 days for sutures removal. (You can also visit urgent care clinic or emergency room for wound check in 2 days and suture removal in 5 days.). Understanding of the discharge instructions verbalized by patient. (Electronically signed by Delbert Clark M.D. 02/13/2010 1:57) Co-signature 02/13/2010 3:40 I saw and evaluated the patient, participated in the management, and agree with the findings in the above note. We discussed the case and the treatment plan. (Electronically signed by Terrence Lopez D.O. - 02/13/2010 3:40) THIS DOCUMENT WAS ELECTRONICALLY AUTHENTICATED BY John ON 02/12/2010 21:21:40: documented in this encounter Plan of Treatment Upcoming Encounters Date Type Department Care Team (Latest Contact Info) Description 03/11/2026 1:15 PM EDT Office Visit [facility] Division of Dermatology [facility] [address] [place] [address], [address] [place] [address] Bernice Mark NP [address] [place] [address] In Person with Nurse Practitioner documented as of this encounter Visit Diagnoses Not on filedocumented in this encounter Care Teams White Washer Relationship Specialty Start Date End Date Gurvinder Dominguez MD [address] [place] [address] PCP - General 09/27/14 07/03/15 Ric Hidalgo MD [address] [place] [address] PCP - General Internal Medicine 07/04/15 02/11/18 Grayson Meza [address] [place] [address] PCP - General 02/12/18 Grayson Meza [address] [place] [address] PCP - Insurance Assigned PCP 07/24/22 documented as of this encounter
--- OUTSIDE RECORDS SUMMARY | 2025-11-16 17:45 | XMS_ITS | Encounter Summary ---
Author Organization Nely Clark [facility] Address [address] [place] [address] Care Team Providers Care Creative Designer Name Role Phone Gurvinder Dominguez MD Primary Care Provider Ric Hidalgo MD Primary Care Provider [phone] Grayson Meza Primary Care Provider [phone] Grayson Meza Unavailable [phone] Encounter Details Date Type Department Care Team (Late st Contact Info) Description 09/05/2010 Clinical Conversion Encounter Department of Rheumatology [facility] Rheumatology [address] [place] [address] Diane Beach NP [address] [place] [address] Social History Tobacco Use Types Packs/Day Years Used Date Smoking Tobacco: Never Assessed Sex and Gender Information Value Date Recorded Sex Assigned at Male 10/31/2018 1:31 PM EST Legal Sex Male 6:42 AM EST Gender Identity Male 10/31/2018 1:31 PM EST Sexual Orientation Not on file documented as of this encounter Progress Notes * Diane Beach NP - 12/09/2014 6:27 AM EST [id number]. RHEUMATOLOGY NICK SOLIS 09/05/2010 # [id number] : 1945 Second Visit ID: [id number] Visit ID: [id number] Mr. Solis is a 65-year-old man who was seen by Dr. Wei in April. PROBLEM LIST: 1. History of FUO with elevated sedimentation rate, C-reactive protein, transaminitis 2. status post bilateral temporal artery biopsies, 11/29/2008, showing focal inflammation of the adventia and outer muscle of artery, focal asymmetric intimal hyperplasia, and interruption of reduplication of the internal elastic membrane and special stain concerning for healed arteritis. 3. Coronary artery disease, status post CABG. 4. Atrial fibrillation, on Coumadin. 5. Abdominal CT changes in ileum, follows with Dr. Forbes, ileal change resolved per imaging study, 01/06/2009. 6. Vitamin D deficiency in November 2008 was 8, July 17, 2010, vitamin D 25 [place] . 7. Diverticulosis on CT, 2008. 8. DEXA scan in November 2008, T score of spine was -0.5, at the hip -0.7. Mr. Solis states that he was hospitalized for 10 days for FUO when diagnosed with GCA. He had no headaches, jaw pain, or changes in vision at that time. No musculoskeletal symptoms. He tolerated prednisone without any side effects and tapered off in April of this year and has had no fevers, jaw pain, headaches, changes in vision, or musculoskeletal symptoms. He had been on Fosamax while on prednisone and has since discontinued. 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 They have 34-year-old son who works in [employer]. Mr. Solis is the oldest of four children. His parents who were in their 90s both within the past 15 months. He exercises on an elliptical field trainer three days a week. CURRENT MEDICATIONS: Coumadin, next INR September 22; Zetia 10 mg; carvedilol 25 mg 2 tablets twice a day; digoxin 0.5 mg; and lisinopril 5 mg. ALLERGIES: Cardizem tablets. PHYSICAL EXAMINATION: Blood pressure is 104/65, heart rate 75, weight is 194 and 10 ounces, temperature is 96.8, O2 saturation is 97, and pain is zero on a scale of 1 to 10. He has no scalp tenderness. No pain with range of motion of temporomandibular joint. Heart rate is 75. Full range of motion of his shoulders. No pain on palpation of his back. No synovitis noted in his wrists or his fingers. No pain with range of motion. No tenderness of his thighs. Knees have no effusions and full range of motion and no edema of his ankles. LABORATORY DATA: Labs on August 25, liver function, total bilirubin 1.4, otherwise normal. C-reactive protein was less than 1. IMPRESSION: History of giant cell arteritis, asymptomatic. PLAN: He will continue off prednisone. He understands the symptoms of giant cell arteritis and will follow up on a p.r.n. basis if he has any changes. His next INR is on September 22. I have added a CBC with differential, BUN, and creatinine at that time. He received a Fluzone injection today and will follow up p.r.n. Diane Beach NP [phone] [id number] J: [id number] CC: Bella Wei MD, <Referring> Gurvinder Dominguez MD, <Primary Care Physician> THIS DOCUMENT WAS ELECTRONICALLY AUTHENTICATED BY Diane Beach NP ON 09/16/2010 21:00:58 PROGRESS NOTE [facility] * [address] [place], [place] [id number] * [phone] Page 2 of 2 documented in this encounter Plan of Treatment Upcoming Encounters Date Type Department Care Team (Latest Contact Info) Description 03/11/2026 1:15 PM EDT Office Visit [facility] Division of Dermatology [facility] Dermatology [address] [facility] [facility], [address] [place] [address] Bernice Mark NP [address] [place] [address] In Person with Nurse Practitioner documented as of this encounter Visit Diagnoses Not on filedocumented in this encounter Care Teams Creative Designer Relationship Specialty Start Date End Date Gurvinder Dominguez MD [address] [place] [address] PCP - General 09/27/14 07/03/15 Ric Hidalgo MD [address] [place] [address] PCP - General Internal Medicine 07/04/15 02/11/18 Grayson Me[place] [address] [place] [address] PCP - General 02/12/18 Grayson Meza [address] [place] [address] PCP - Insurance Assigned PCP 07/24/22 documented as of this encounter
--- OUTSIDE RECORDS SUMMARY | 2025-11-16 17:45 | XMS_ITS | Encounter Summary ---
Author Organization Nely Alf Amber [facility] Address [address] [place] [address] Care Team Providers Care [employer] Experimental Mechanic Name Role Phone Gurvinder Dominguez MD Primary Care Provider Ric Hidalgo MD Primary Care Provider [phone] Grayson Meza Primary Care Provider [phone] Grayson Meza Unavailable [phone] Encounter Details Date Type Department Care Team (Late st Contact Info) Description 07/18/2010 Clinical Conversion Encounter Department of Cardiology [facility] Cardiology [address] [place] [address] Malcolm Zavaleta MD [address] [place] [address] Social History Tobacco Use Types Packs/Day Years Used Date Smoking Tobacco: Never Assessed Sex and Gender Information Value Date Recorded Sex Assigned at Male 10/31/2018 1:31 PM EST Legal Sex Male 6:42 AM EST Gender Identity Male 10/31/2018 1:31 PM EST Sexual Orientation Not on file documented as of this encounter Progress Notes * Malcolm Zavaleta MD - 12/08/2014 5:38 AM EST [id number],MICHAEL [place], [place]. CARDIOLOGY NICK SOLIS 07/18/2010 # [id number] : 1945 Second Visit ID: [id number] Visit ID: [id number] The patient is a very pleasant 65-year-old gentleman, who is here for routine follow-up. The patient has been seen by General Medicine over a period of years and also been seen by the Cardiology staff. Has not been followed regularly by a policy manager other than the policy manager who provided the . The patient has several cardiac histories. History of status-post CABG five years ago for underlying coronary artery disease. He had presented to the physician's office. Apparently had an ischemic cardiomyopathy that was worked up with a catheterization and subsequent bypass surgery. He has done quite well and has not had any angina. He also has had a history of atrial fibrillation, status-post Maze procedure and cardioversions, and is in atrial fibrillation apparently intermittently. He is not aware of the symptoms of atrial fibrillation. He has been on Coumadin therapy since that time. He also has a history of vitamin D deficiency, diverticulosis, and a fever of unknown etiology in the past. 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 The patient looks well and he has no current symptomatology. He has not had an exercise tolerance test or cholesterol checked in at least the last two years. MEDICATIONS: At present include Zetia 10 mg p.o. daily, carvedilol 25 mg 2 tablets twice per day, warfarin 5 mg a day, digoxin 0.5 p.o. q. day, Lipitor 40 mg, which has been stopped, lisinopril 5 mg p.o. daily, prednisone 1 mg to tapering, and Fosamax 70 mg p.o. q. day. PHYSICAL EXAMINATION: Blood pressure 118/70. HEENT is unremarkable. Pulmonary exam is clear. Cardiac exam: Normal S1, normal S2, no S3, no rubs or gallops. No murmurs heard. Remainder of physical exam is essentially unremarkable. 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 He is asymptomatic and doing well. I have suggested he have a baseline stress echocardiogram, as well as a lipid and liver profile in 2 to 4 weeks, and follow up here in approximately six weeks' time. We will then probably reinstitute statin therapy at that time. Malcolm Zavaleta MD [phone] TCP:[id number] J: [id number] CC: Malcolm Zavaleta MD, <Referring> Gurvinder Dominguez MD, <Second referring Dr Name> THIS DOCUMENT WAS ELECTRONICALLY AUTHENTICATED BY Malcolm Zavaleta MD ON 08/09/2010 13:40:58 PROGRESS NOTE [facility] * [address] [place] [address] * [phone] Page 2 of 1 documented in this encounter Plan of Treatment Upcoming Encounters Date Type Department Care Team (Latest Contact Info) Description 03/11/2026 1:15 PM EDT Office Visit [facility] Division of Dermatology [facility] Dermatology [address] [facility], [address] [place] [address] Bernice Mark, VERONICA [address] [place] [address] In Person with Nurse Practitioner documented as of this encounter Visit Diagnoses Not on filedocumented in this encounter Care Teams [employer] Experimental Mechanic Relationship Specialty Start Date End Date Gurvinder Dominguez MD [address] [place] [address] PCP - General 09/27/14 07/03/15 Ric Hidalgo MD [address] [place] [address] PCP - General Internal Medicine 07/04/15 02/11/18 Grayson Meza [address] [place] [address] PCP - General 02/12/18 Grayson Meza [address] [place] [address] PCP - Insurance Assigned PCP 07/24/22 documented as of this encounter
--- OUTSIDE RECORDS SUMMARY | 2025-11-16 17:45 | XMS_ITS | Encounter Summary ---
Author Organization Nely Clark [facility] Address [address] [place] [address] Care Team Providers Care Rib Trim Separator Name Role Phone Gurvinder Dominguez MD Primary Care Provider Ric Hidalgo MD Primary Care Provider [phone] Grayson Meza Primary Care Provider [phone] Grayson Meza Unavailable [phone] Encounter Details Date Type Department Care Team (Late st Contact Info) Description 08/12/2014 Clinical Conversion Encounter [facility] Division of Dermatology [facility] Dermatology [address] [facility], [address] [place] [address] Sera Dobbins MD Social History Tobacco Use Types Packs/Day Years Used Date Smoking Tobacco: Never Assessed Sex and Gender Information Value Date Recorded Sex Assigned at Male 10/31/2018 1:31 PM EST Legal Sex Male 6:42 AM EST Gender Identity Male 10/31/2018 1:31 PM EST Sexual Orientation Not on file documented as of this encounter Progress Notes * Sera Dobbins MD - 01/13/2015 11:54 PM EST [id number] SOLIS [facility] [place] [place]. History of Present Illness 69-year-old patient complains of raised lesion on right back. He cannot feel well but feels that is enlarging It does not itch or bleed. He states he had this checked in Gen. internal medicine earlier in the summer. However it reminds him of basal cell skin cancers had previously. He requests check of the rest of his skin. Past Medical History 2 basal cell carcinomas, treated in the back several years ago. Current Meds Aspirin 81 MG Oral Tablet; Therapy: (Recorded:27Apr2011) to Atorvastatin Calcium 80 MG Oral Tablet; ONE TABLET BY MOUTH DAILY; Therapy: 69Cri6691 to (Last Rx:07May2014) Requested for: 07May2014 Calcium TABS; Therapy: (Recorded:27Apr2011) to Carvedilol 25 MG Oral Tablet; take 2 tablets by mouth twice daily; Therapy: 23Evk9876 to (Last Rx:07May2014) Requested for: 07May2014 Digoxin 125 MCG Oral Tablet; TAKE ONE TABLET DAILY IN ADDITION TO 0.25MG; Therapy: 04Oct2009 to (Last Rx:07May2014) Requested for: 07May2014 Digoxin 250 MCG Oral Tablet; TAKE 1 TABLET DAILY; Therapy: 57Jiy3002 to (Evaluate:02May2015) Requested for: 07May2014; Last Rx:07May2014 Multiple Vitamins Oral Tablet; Therapy: (Recorded:90Gmt0363) to Vitamin D CAPS; Therapy: (Recorded:05Kbl6741) to Warfarin Sodium 5 MG Oral Tablet; Take 1-2 tabs by mouth daily or as directed by Anticoagulation Clinic; Therapy: 21Nov2010 to (Evaluate:22Apr2015) Requested for: 28Apr2014; Last Rx:28Apr2014 Allergies Cardizem TABS Review of Systems Denies new or changing skin lesions other than as described in HPI. Physical Exam Alert and oriented X 3. Normal mood. Normal body habitus. Examination on scalp, face, neck, chest, abdomen, back, upper and lower extremities bilaterally, hands and feet was notable for: 2-3 mm inflammatory papulopustular lesions seen on forehead nose and cheeks. Right upper back 1.5 cm light brown keratotic plaque Assessment 1. Rosacea 695.3 2. Seborrheic Keratosis 702.19 Plan 1. MetroNIDAZOLE 0.75 % External Cream; APPLY TO FACE BID; Therapy: 70Ubw9923 to (Last Rx:36Plk0696) I have reassured regarding benign nature of seborrheic keratosis. Discussed with patient diagnosis of rosacea. Discussed with him treatment options. He understands to expect gradual improvement. Discussed potential exacerbation by dietary and environmental factors. Followup when necessary Signatures Electronically signed by : SERA DOBBINS MD; Aug 12 2014 4:09PM documented in this encounter Plan of Treatment Upcoming Encounters Date Type Department Care Team (Latest Contact Info) Description 03/11/2026 1:15 PM EDT Office Visit [facility] Division of Dermatology [facility] Dermatology [address] [facility], [address] [place] [address] Bernice Mark, VERONICA [address] [place] [address] In Person with Nurse Practitioner documented as of this encounter Visit Diagnoses Not on filedocumented in this encounter Care Teams Rib Trim Separator Relationship Specialty Start Date End Date Gurvinder Dominguez MD [address] [place] [address] PCP - General 09/27/14 07/03/15 Ric Hidalgo MD [address] [place] [address] PCP - General Internal Medicine 07/04/15 02/11/18 Grayson Meza [address] [place] [id number] PCP - General 02/12/18 Grayson Meza [address] [place] [id number] PCP - Insurance Assigned PCP 07/24/22 documented as of this encounter
--- OUTSIDE RECORDS SUMMARY | 2025-11-16 17:45 | XMS_ITS | Encounter Summary ---
Author Organization Nely Clark [facility] Address [address] [place] [address] Care Team Providers Care Line Dancer Name Role Phone Gurvinder Gómez MD Primary Care Provider Ric Hidalgo MD Primary Care Provider [phone] Grayson Meza Primary Care Provider [phone] Grayson Meza Unavailable [phone] Encounter Details Date Type Department Care Team (Late st Contact Info) Description 04/13/2011 Clinical Conversion Encounter General Internal Medicine- [facility] General Internal Medicine [address] [place] [address] Gurvinder Gómez MD [address] [place] [address] Social History Tobacco Use Types Packs/Day Years Used Date Smoking Tobacco: Never Assessed Sex and Gender Information Value Date Recorded Sex Assigned at Male 10/31/2018 1:31 PM EST Legal Sex Male 6:42 AM EST Gender Identity Male 10/31/2018 1:31 PM EST Sexual Orientation Not on file documented as of this encounter Progress Notes * Gurvinder Gómez MD - 12/10/2014 8:49 AM EST [id number] SOLIS [place]. History of Present Illness 66-year-old male comes in today for evaluation of a new onset lump behind his right ear. He noted incidentally it was a bit uncomfortable however. He denies any fevers chills recent changes in weight or night sweats. Active Problems Atrial Fibrillation 427.31 Coronary Arteriosclerosis 414.00 Coronary Artery Bypass Graft (CABG) Essential Hypercholesterolemia 272.0 Hypertension 401.9 Osteopenia 733.90 Sebaceous Cyst 706.2 Temporal Arteritis 446.5 Vitamin D Deficiency 268.9 Surgical History Coronary Artery Bypass Graft (CABG) Current Meds Aldara 5 % External Cream; apply once packet per side of face once weekly overnight; Therapy: 17Jan2010 to (Evaluate:85Rsm7578); Last Rx:17Jan2010 Carvedilol 25 MG Oral Tablet; take 2 tablets by mouth twice daily; Therapy: 65Sxr0655 to (Last Rx:55Uja0192) Digoxin 0.25 MG Oral Tablet; TAKE 1 TABLET DAILY; Therapy: 91Mdr5478 to (Last Rx:42Rll1506) Lipitor 80 MG Oral Tablet; TAKE 1 TABLET DAILY; Therapy: 11Oct2010 to (Evaluate:62Sry3448); Last Rx:11Oct2010 Lisinopril 5 MG Oral Tablet; TAKE 1 TAB(S) ORALLY ONCE A DAY; Therapy: 13Apr2011 to Warfarin Sodium 5 MG Oral Tablet; take 1-2 tablets daily as directed by the Anticoagulation Clinic; Therapy: 21Nov2010 to (Last Rx:21Nov2010) Allergies Cardizem TABS Immunizations 1 2 3 Influenza 15Dnb1874 82Hbe7045 20Hde2777 Influenza A (H1N1) Monoval Vac Intramuscular Suspension 09Fjd0460 Tdap 21Ppr1532 Influenza A (H1N1) Monoval PF Intramuscular Suspension 05Sep2010 Social History Being A Social Drinker Former Smoker V15.82 Vitals [facility] Vitals Data Includes: Current Encounter 13Apr2011 01:07PM Temperature 98 F Pain Score 2 Pain Site rt ear discomf Notified No Allergy Status Reviewed Yes Safe at Home Yes Physical Exam Gen.: Pleasant male healthy-appearing sitting up no acute distress. HEENT: Sclera and conjunctiva are unremarkable the oropharynx is moist without lesions. Neck is supple without lymphadenopathy or thyromegaly. No carotid bruits. Posterior to the right ear there is a fairly large cystic lesion subcutaneous consistent with a cyst. No palpable lymphadenopathy in the anterior or posterior cervical triangles. Assessment 1. Sebaceous Cyst 706.2 Plan Due to the location of this is ineffective he wears glasses I think this is only going to get worse and caused him pain and bleeding. A solution he did have an evaluation for excision. I will order him for an otolaryngology consult. He will likely be able to stop the Coumadin 5 days prior without bridging. Signatures Electronically signed by : GURVINDER GÓMEZ MD; Apr 13 2011 1:33PM documented in this encounter Plan of Treatment Upcoming Encounters Date Type Department Care Team (Latest Contact Info) Description 03/11/2026 1:15 PM EDT Office Visit [facility] Division of Dermatology [facility] Dermatology [address] [facility], [address] [place] [address] Bernice Mark NP [address] [place] [address] In Person with Nurse Practitioner documented as of this encounter Visit Diagnoses Not on filedocumented in this encounter Care Teams Line Dancer Relationship Specialty Start Date End Date Gurvinder Gómez MD [address] [place] [address] PCP - General 09/27/14 07/03/15 Ric Hidalgo MD [address] [place] [address] PCP - General Internal Medicine 07/04/15 02/11/18 Grayson Meza [address] [place] [address] PCP - General 02/12/18 Grayson Meza [address] [place] [address] PCP - Insurance Assigned PCP 07/24/22 documented as of this encounter
--- OUTSIDE RECORDS SUMMARY | 2025-11-16 17:45 | XMS_ITS | Encounter Summary ---
Author Organization [facility] Address [address] [place] [address] Care Team Providers Care Thrasher Feeder Name Role Phone Gurvinder Dominguez MD Primary Care Provider Ric Hidalgo MD Primary Care Provider [phone] Grayson Meza Primary Care Provider [phone] Grayson Meza Unavailable [phone] Encounter Details Date Type Department Care Team (Late st Contact Info) Description 04/21/2010 Clinical Conversion Encounter Department of Rheumatology [facility] Rheumatology [address] [place] [id number] Farida Wei MD [address] [place] [id number] Social History Tobacco Use Types Packs/Day Years Used Date Smoking Tobacco: Never Assessed Sex and Gender Information Value Date Recorded Sex Assigned at Male 10/31/2018 1:31 PM EST Legal Sex Male 6:42 AM EST Gender Identity Male 10/31/2018 1:31 PM EST Sexual Orientation Not on file documented as of this encounter Progress Notes * Farida Wei MD - 12/07/2014 8:26 PM EST [id number] RHEUMATOLOGY NICK SOLIS 04/21/2010 # [id number] : 1945 Second Visit ID: [id number] Visit ID: [id number] PROBLEM LIST: 1. History of FUO with elevated sedimentation rate, CRP, transaminitis, status post bilateral temporal artery biopsies 11/29/2008 showing focal inflammation in the adventitia and outer muscle of the artery, focal asymmetric intimal hyperplasia, interruption and reduplication of the internal elastic membrane and special stain concerning for healed arteritis. 2. Coronary artery disease, status post CABG. 3. Atrial fib on Coumadin. 4. Family history of psoriasis in a brother. 5. Abdominal CT changes in the ileum followed up with Dr. Forbes, no diagnosis, but ileal changes resolved per imaging study 01/06/2009. 6. Vitamin D deficiency, 25 OH vitamin D was 8 on 12/03/08. Anti- endomysial negative. 7. Diverticulosis noted on CT 2008. 8. DEXA scan done November 2008, T score at the spine was -0.5, at the hip -0.7. Mr. Solis is a 65-year-old male with the above list of problems, who I saw for initial inpatient evaluation on 10/08/08, who I saw in the outpatient on 12/03/2008, who returns in follow-up for his temporal arteritis. Briefly, his initial symptoms were fever, weight loss, transaminitis, anemia, thrombocytopenia, elevated sedimentation rate, CRP, abnormal sensation that he could feel his hair growing , but he also had irregularities noted on his distal ileum and irregularity of the wall of the gallbladder on CT. Initially he had diffuse arthralgias, myalgias of knees, elbows, shoulders and uncontrollable diarrhea. Extended evaluation included a Whipple's DNA, Lyme testing, babesiosis, ehrlichiosis, Hep A, B and C and a transesophageal echo, all of which were normal. He was started on prednisone a milligram per kilogram per day with a tapering regimen and we initiated Fosamax for osteoporosis prophylaxis. He has had some mild vitamin D deficiency. We repleted back and screened for celiac disease that was negative. Currently he feels quite well. He is on prednisone 1 mg, Saturday, Saturday and Saturday. He has no morning stiffness. No PMR-related symptoms. He has no headaches, visual changes, jaw claudication, or scalp tenderness. No abdominal complaints. He did get an ultrasound of his abdomen 01/20/10. He had no aneurysm noted. CURRENT MEDICATIONS: Lipitor, Zetia, Carvedilol, warfarin, digoxin, prednisone 1 mg Saturday, Saturday and Saturday, Fosamax 70 p.o. every week, and Aldara topical cream. ALLERGIES: Cardizem caused a rash. PHYSICAL EXAMINATION: This is a pleasant male in no acute distress. His blood pressure 128/82, heart rate 78, weight 201, temperature 98.9, O2 saturation 96, and pain 0/10. Skin: Temporal arteries non-indurated and nontender. No scalp tenderness. Lungs: Clear. Cardiovascular exam: irregularly irregular, normal S1, S2. Abdomen: Benign. No bruits. Musculoskeletal exam: Good range of motion of all his joints. No active synovitis. LABORATORY DATA: From March 24, 2010: Albumin 3.8, AST 23, ALT 29, creatinine 0.8, CRP less than 1, white count 5.73, hemoglobin and hematocrit 14.2 and 42.6, and platelets 163. IMPRESSION AND PLAN: 1. Presumed temporal arteritis based on fever of unclear etiology, weight loss, anemia, thrombocytosis, elevated sedimentation rate and CRP: Serologic work-up unremarkable. Infectious and malignancy work-up negative. There was an issue and the ileum in the gallbladder that seemed to resolve and was followed up by Dr. Forbes. At this point we will taper him completely off steroids. We will check monthly blood work with a CRP in a month and in two months a full set of labs and CRP in three months and we will see him back in four months. He knows the warning signs for giant cell arteritis and should any of these occur he was instructed to call us. 2. History of vitamin D deficiency in the past: Will probably with his blood work in two months, update his vitamin D. 3. At risk for osteoporosis, minimal osteopenia: He continues on Fosamax for now. If he is able to maintain himself off prednisone, then we will discontinue it at the next visit. 4. Health maintenance: I do see that he has received influenza vaccination and H1 N1 and tetanus in February 2010. I do not see documentation of Pneumovax. Bella Wei MD [phone] SCK:malia J: [id number] CC: Bella Wei MD, <Referring> Gurvinder Dominguez MD, <Second referring Dr Name> THIS DOCUMENT WAS ELECTRONICALLY AUTHENTICATED BY Bella Wei MD ON 04/28/2010 17:50:23 PROGRESS NOTE [facility] * [address] [facility] [place] [facility] [address], [place] [address] * [phone] Page 2 of 2 documented in this encounter Plan of Treatment Upcoming Encounters Date Type Department Care Team (Latest Contact Info) Description 03/11/2026 1:15 PM EDT Office Visit [facility] Division of Dermatology [facility] Dermatology [address] [facility] [address], [address] [place] [address] Bernice Mark NP [address] [place] [address] In Person with Nurse Practitioner documented as of this encounter Visit Diagnoses Not on filedocumented in this encounter Care Teams Thrasher Feeder Relationship Specialty Start Date End Date Gurvinder Dominguez MD [address] [place] [address] PCP - General 09/27/14 07/03/15 Ric Hidalgo MD [address] [place] [address] PCP - General Internal Medicine 07/04/15 02/11/18 Grayson Meza [address] [place] [address] PCP - General 02/12/18 Grayson Meza [address] [place] [address] PCP - Insurance Assigned PCP 07/24/22 documented as of this encounter
--- OUTSIDE RECORDS SUMMARY | 2025-11-16 17:45 | XMS_ITS | Encounter Summary ---
Author Organization [facility] Address [address] [place] [address] Care Team Providers Care Ship Liner Name Role Phone Gurvinder Dominguez MD Primary Care Provider Ric Hidalgo MD Primary Care Provider [phone] Grayson Meza Primary Care Provider [phone] Grayson Meza Unavailable [phone] Encounter Details Date Type Department Care Team (Late st Contact Info) Description 08/12/2014 Clinical Conversion Encounter GENERAL CONVERSION Margareth Salamanca [...] Progress Notes * Margareth Salamanca RN - 01/13/2015 11:54 PM EST [id number],[facility] [place], [place]. Anticoagulation Progress Report August 12, 2014 Name: Nick Solis Reason for Treatment: Atrial fibrillation INR Range: 2.0-3.0 Date: 2014-08-12 10:11 Location: [facility] INR: 2.90 Tablet Strength: 5 mg Next INR: 56 days 2014-10-07 Update Note: INR,FS 08/12; POC: Progress Note: met with pt 08/12 at POC; pt said he has taken warfarin as directed; no new meds; continue warfarin per dosing sae; INR /20 at local lab in [place]; Dosage Out: :Leon-5mg:M-7.5mg:T-5mg:W-5mg:Th-5mg:F-5mg:Sa-5mg: ASSESSMENT:[place]ikh [place] Mary CLINICIAN:Cheikh [place] Mary documented in this encounter Plan of Treatment Upcoming Encounters Date Type Department Care Team (Latest Contact Info) Description 03/11/2026 1:15 PM EDT Office Visit [facility] Division of Dermatology [facility] Dermatology [address] [facility], [address] [place] [address] Bernice Mark NP [address] [place] [address] In Person with Nurse Practitioner documented as of this encounter Visit Diagnoses Not on filedocumented in this encounter Care Teams Ship Liner Relationship Specialty Start Date End Date Gurvinder Dominguez MD [address] [place] [address] PCP - General 09/27/14 07/03/15 Ric Hidalgo MD [address] [place] [address] PCP - General Internal Medicine 07/04/15 02/11/18 Grayson Meza [address] [place] [address] PCP - General 02/12/18 Grayson Meza [address] [place] [address] PCP - Insurance Assigned PCP 07/24/22 documented as of this encounter
--- OUTSIDE RECORDS SUMMARY | 2025-11-16 17:45 | XMS_ITS | Clinical Summary ---
Author Organization [facility] Address [address] [place] [address] Care Team Providers Care Internet Salesperson Name Role Phone Grayson Meza Primary Care Provider [phone] Grayson Meza Unavailable [phone] Allergies Active Allergy Reactions Criticality Noted Date Comments Diltiazem Hcl Rash 05/11/2011 Medications aspirin 81 MG EC tablet 1 Active [id number] Y per tablet 1 Active Text: Calcium TABS 1 Active Text: Vitamin D CAPS 1 Active warfarin (COUMADIN) 5 MG tablet TAKE 1 TO 2 TABLETS BY MOUTH DAILY 180 tablet 3 4 Active metroNIDAZOLE (METROCREAM) 0.75 % creamIndication s:Rosacea APPLY TO AFFECTED AREA TWICE A DAY 45 g 11 5 Active carvediloL (COREG) 25 MG tabletIndicatio ns:Coronary artery disease involving la posta coronary artery of la posta heart without angina pectoris Take 2 tablets (50 mg total) by mouth 2 times a day with breakfast & dinner. 360 tablet 3 5 Active atorvaSTATin (LIPITOR) 80 MG tablet Take 1 tablet (80 mg total) by mouth in the morning. 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 Rosacea 08/12/2014 Overview (01/17/2015): Rosacea Chronic coronary artery disease 04/28/2013 Overview (01/17/2015): Coronary Arteriosclerosis: CORON ATHEROSCLER NOS TYPE VESSEL, [place] OR GRAFT - 414.00 History of coronary artery bypass surgery 2012 Overview (01/17/2015): CABG (CABG) Hypertension 04/13/2011 Overview (01/17/2015): Hypertension: HYPERTENSION NOS - 401.9 Primary hypercholesterolemia 02/06/2011 Overview (01/17/2015): Essential Hypercholesterolemia Temporal arteritis 09/05/2010 Overview (01/17/2015): Temporal Arteritis: GIANT CELL ARTERITIS - 446.5 Vitamin D deficiency 08/17/2009 Overview (01/17/2015): Vitamin D Deficiency: VITAMIN D DEFICIENCY NOS - 268.9 Osteopenia 08/17/2009 Overview (01/17/2015): Osteopenia Resolved Problems Problem Noted Date Diagnosed Date Resolved Date Rosacea 03/12/2016 03/12/2016 Seborrheic keratosis 08/12/2014 016 Overview (01/17/2015): Seborrheic Keratosis Inflamed seborrheic keratosis 03/02/2014 03/12/2016 Overview (01/17/2015): Inflamed Seborrheic Keratosis Benign neoplasm of skin of trunk 11/19/2013 03/12/2016 Overview (01/17/2015): Benign Skin Neoplasm Of The Trunk Actinic keratosis 11/19/2013 03/12/2016 Overview (01/17/2015): Actinic Keratosis Atrial fibrillation 04/28/2013 09/29/20 15 Overview (01/17/2015): Atrial Fibrillation: ATRIAL FIBRILLATION - 427.31 Sebaceous cyst 04/13/2011 03/12/2016 Overview (01/17/2015): Sebaceous Cyst Encounters Date Type Department Care Team Description 09/03/2025 1:15 PM EDT Office Visit [facility] Division of Dermatology [facility] Dermatology [address] [place] [address], [address] [place] [id number] Bernice Mark NP History of nonmelanoma skin cancer (Primary Dx); Lentigines; Rosacea; Seborrheic dermatitis from Last 3 Months Immunizations Immunization Administration Dates Next Due H1N1 Inj 12/28/2009 H1N1 Inj Preservative Free 09/05/2010 Influenza Split 10/06/2012,12/28/2009 Influenza Vaccine - HIGH DOSE (FLUZONE HD) 11/14,11/08/2014 Influenza Vaccine - STANDARD - PF (FLUZONE/FLUARIX/FLULAVAL/AFLURIA) 09/25/2013 Pneumococcal Conjugate Vacci ne 13-Valent, (PCV13/PREVNAR 13) 11/14/2015 Pneumococcal polysaccharide vaccine 23-valent (PPSV23/[id number]) 11/14/2016 Tdap Vaccine (BOOSTRIX/ADACEL) 02/20/2010 Varicella-Zoster Vaccine (ZOSTAVAX) 10/06/2012 Family History Medical History Relation Comments Cataracts Father Cataract Cataracts Mother Cataract Melanoma Mother Diabetes Paternal Uncle Diabetes Mellitu s Relation Status Comments Father Mother Paternal Uncle Social History Tobacco Use Types Packs/Day Years Used Date Smoking Tobacco: Former Smokeless Tobacco: Never Tobacco Cessation:Counseling Given: Not Answered Comments:pt quit 30years ago Alcohol Use Standard Drinks/Week Comments No 0 (1 standard drink = 0.6 oz pur e alcohol) Sex and Gender Information Value Date Recorded Sex Assigned at Male 10/31/2018 1:31 PM EST Legal Sex Male 6:42 AM EST Gender Identity Male 10/31/2018 1:31 PM EST Sexual Orientation Not on file Last Filed Vital Signs Vital Sign Reading Time Taken Comments Blood Pressure 108/72 03/03/2024 9:45 AM EDT Pulse 84 03/03/2024 9:45 AM EDT Temperature 36.4 C (97.5 F) 11/14/2015 10:39 AM EST Respiratory Rate - - Oxygen Saturation 94% 03/03/2024 9:45 AM EDT Inhaled Oxygen Concentration - - Weight 92.5 kg (204 lb) 03/03/2024 9:45 AM EDT Height 172.7 cm (5' 8 ) 10/31/2021 1:42 PM EST Body Mass Index 31.02 10/31/2021 1:42 PM EST Plan of Treatment Upcoming Encounters Date Type Department Care Team (Latest Contact Info) Description 03/11/2026 1:15 PM EDT Office Visit [facility] Division of Dermatology [facility] Dermatology [address], [address] [place] [address] Bernice Mark NP [address] [place] [address] In Person with Nurse Practitioner Health Maintenance Due Date Last Done Comments Depression Screening 1957 Hepatitis C Screening 1963 Lipid Panel 11/14/2017 11/14/2016, 10/19, 11/08/2014, Additional history exists Blood Pressure 03/03/2025 03/03/2024 COVID-19 Vaccine ( season) 2025 05/26/2024, 08/22/2023, 03/09/2022, Additional history exists DTaP,Tdap,and Td Vaccines (4 - Td or Tdap) 02/25/2033 02/25/2023, 02/25/2023, 02/20/2010 Zoster Vaccine Completed 07/27/2022, 07/0 11/2021, 10/06/2012 Pneumococcal Vaccine: 50+ Years Completed 10/23/2024, 11/14/2016, 11/14/2015, Additional history exists Influenza Vaccine Completed 08/20/2025, , 10/23/2024, Additional history exists Meningococcal B Vaccines Aged Out No longer eligible based on patient's age to complete this topic Meningococcal Vaccines Aged Out No lo nger eligible based on patient's age to complete this topic Procedures Procedure Name Priority Date/Time Associated Diagnosis Comments LIPID PANEL Routine 11/14/2016 9:29 AM EST Pure hypercholesterolemia from Last 3 Months or Most Recently Relevant to Health Maintenance Results * (ABNORMAL) Lipid Panel (11/14/2016 9:29 AM EST) Cholesterol 144 130 - 200 mg/dL 11/14/2016 10:57 AM EST [facility] Triglycerides 111 55 - 150 mg/dL 11/14/2016 10:57 AM EST [facility] HDL Cholesterol 32(L) 40 - 75 mg/dL 11/14/2016 10:57 AM EST [facility] LDL Cholesterol 90 <130 mg/dL 11/14/2016 10:57 AM EST [facility] Non-HDL Cholesterol 112 <190 mg/dL 11/14/2016 10:57 AM EST [facility] Comment: Normal primary prevention <190 mg/dL High risk primary prevention <160 mg/dL Secondary prevention <130 mg/dL High risk secondary prevention <100 mg/dL VLDL Cholesterol 22 mg/dL 11/14/2016 10:57 AM EST [facility] Ratio Chol/HDL 4.5 2.0 - 5.0 11/14/2016 10:57 AM EST [facility] Patient Fasting Yes 11/14/2016 10:57 AM EST [facility] Blood specimen (specimen) Venipuncture / Unknown 11/14/2016 9:29 AM EST 11/14/2016 10:10 AM EST us Ric Hidalgo MD LAB BLOOD ORDERABLES Final Result Performing Organization Address City/State/[facility] Co de Phone Number [address] [address] from Last 3 Months or Most Recently Relevant to Health Maintenance Insurance [facility] MEDICARE ADVANTAGE [employer] MEDICARE ADVANTAGE Care Teams Internet Salesperson Relationship Specialty Start Date End Date Grayson Meza [address] [place] [address] PCP - General 02/12/18 Grayson Meza [address] [place] [address] PCP - Insurance Assigned PCP 07/24/22
--- OUTSIDE RECORDS SUMMARY | 2025-11-16 17:45 | XMS_ITS | Encounter Summary ---
Author Organization [facility] Address [address] [place] [address] Care Team Providers Care Cook Larder Name Role Phone Gurvinder Dominguez MD Primary Care Provider Ric Hidalgo MD Primary Care Provider [phone] Grayson Meza Primary Care Provider [phone] Grayson Meza Unavailable [phone] Encounter Details Date Type Department Care Team (Late st Contact Info) Description 05/16/2011 Clinical Conversion Encounter [facility] Division of otolaryngology - [facility] Otolaryngology [address] [place] [address] Nicholas Delgado MD [address] [place] [id number] Social History Tobacco Use Types Packs/Day Years Used Date Smoking Tobacco: Never Assessed Sex and Gender Information Value Date Recorded Sex Assigned at Male 10/31/2018 1:31 PM EST Legal Sex Male 6:42 AM EST Gender Identity Male 10/31/2018 1:31 PM EST Sexual Orientation Not on file documented as of this encounter Progress Notes * Nicholas Delgado MD - 12/10/2014 12:18 PM EST [id number] SOLIS [place]. History of Present Illness Mr. Solis returns to the clinic for followup of his asymmetric sensorineural hearing loss and sebaceous cyst in the right postauricular region. She was treated with two-week course of Augmentin which helped with the infection. It is back down to baseline. For his asymmetric sensorineural hearing loss, he underwent CT of the temporal bone with contrast as he couldn't get an MRI. The CT shows no evidence of IAC lesion per my read, but the official radiology report is not yet available. Social History Being A Social Drinker Former Smoker V15.82 Current Meds Aldara 5 % External Cream; apply once packet per side of face once weekly overnight; Therapy: 17Jan2010 to (Evaluate:89Eds0987); Last Rx:17Jan2010 Aspirin 81 MG Oral Tablet; Therapy: (Recorded:27Apr2011) to Calcium TABS; Therapy: (Recorded:27Apr2011) to Carvedilol 25 MG Oral Tablet; take 2 tablets by mouth twice daily; Therapy: 37Sxo3512 to (Last Rx:[id number]) Digoxin 0.25 MG Oral Tablet; TAKE 1 TABLET DAILY; Therapy: 30Kkj8909 to (Last Rx:16Ogg1904) Lipitor 80 MG Oral Tablet; TAKE 1 TABLET DAILY; Therapy: 11Oct2010 to (Evaluate:15Sdu0129); Last Rx:11Oct2010 Lisinopril 5 MG Oral Tablet; TAKE 1 TAB(S) ORALLY ONCE A DAY; Therapy: 85Ecx5858 to Warfarin Sodium 5 MG Oral Tablet; take 1-2 tablets daily as directed by the Anticoagulation Clinic; Therapy: 21Nov2010 to (Last Rx:21Nov2010) Allergies Cardizem TABS Vitals Amber Vitals Data Includes: Current Encounter 16May2011 03:09PM Pain Score 0 Allergy Status Reviewed Yes Safe at Home Yes Physical Exam The patient is a well-developed well-nourished gentleman appearing his stated age. He is in no acute distress. Examination of his head is unremarkable with normocephalic atraumatic appearance. There is no tenderness over his paranasal sinuses. Extraocular motion is intact. Examination of his ears are unremarkable with patent EACs and intact tympanic membrane. Right postauricular region shows a small skin intact like lesion only. There is no erythema, edema or fluctuance. He shows good respiratory effort without concerning breath sounds. Assessment Right postauricular sebaceous cyst Asymmetric sensorineural hearing loss Plan His sebaceous cyst has responded to the antibiotic. As he does not gets frequent infection, he is happy with current treatment. If he gets infected again, I've asked him to return. Meanwhile I will contact him with the temporal bone CT results. I will see him back on an as-needed basis. Signatures Electronically signed by : NICHOLAS DELGADO MD; May 16 2011 3:48PM Electronically signed by : NICHOLAS DELGADO MD; May 10 2014 1:16PM documented in this encounter Plan of Treatment Upcoming Encounters Date Type Department Care Team (Latest Contact Info) Description 03/11/2026 1:15 PM EDT Office Visit [facility] Division of Dermatology [facility] Dermatology [address] [facility], [address] [place] [address] Bernice Mark NP [address] [place] [address] In Person with Nurse Practitioner documented as of this encounter Procedures Procedure Name Priority Date/Time Associated Diagnosis Comments CT TEMPORAL BONES W CONTRAST Routine 05/16/2011 2:15 PM EDT POCI INR Routine 05/16/2011 12:04 PM EDT documented in this encounter Results * CT Temporal Bones W Contrast (05/16/2011 2:15 PM EDT) Anatomical Region Laterality Modality Head Computed Tomogra phy 05/16/2011 2:15 PM EDT Narrative 05/16/2011 5:24 PM EDT This report was dictated by Lumber Tailer Mukesh Adhikari MD. CT TEMPORAL BONES with CONTRAST Technique: Thin axial imaging through the temporal bones with coronal reformats after administration 80 cc intravenous contrast media. History: Asymmetric sensorineural hearing loss. The patient cannot have MRI. Comparison: None FINDINGS: Normal appearance of bilateral external canals, tympanic membrane ossicles and tympanic cavities, and mastoid air cells, bony labyrinths, and bony IACs. There is no evidence of a mass in the cerebellopontine angle. No abnormal enhancement in the internal auditory canal either side. Certainly, CT is not sensitive as MRI in this regard. Visualized intracranial contents otherwise are unremarkable. There is a mild bilateral palatine tonsil enlargement with calculi. The extracalvarial soft tissues are otherwise unremarkable as visualized in this study. Note is made of mild mucosal thickening inferior left greater than right maxillary sinuses. IMPRESSION: No CT evidence of retrocochlear pathology. Normal temporal bones. I have reviewed all films of this examination and edited the above Resident dictation This document was electronically signed by AVEL CARVER MD on 05/16/2011 17:24:00 Procedure Note Avel Carver - 01/19/2015 This report was dictated by Lumber Tailer Mukesh Adhikari MD. CT TEMPORAL BONES with CONTRAST Technique: Thin axial imaging through the temporal bones with coronal reformats after administration 80 cc intravenous contrast media. History: Asymmetric sensorineural hearing loss. The patient cannot have MRI. Comparison: None FINDINGS: Normal appearance of bilateral external canals, tympanic membrane ossicles and tympanic cavities, and mastoid air cells, bony labyrinths, and bony IACs. There is no evidence of a mass in the cerebellopontine angle. No abnormal enhancement in the internal auditory canal either side. Certainly, CT is not sensitive as MRI in this regard. Visualized intracranial contents otherwise are unremarkable. There is a mild bilateral palatine tonsil enlargement with calculi. The extracalvarial soft tissues are otherwise unremarkable as visualized in this study. Note is made of mild mucosal thickening inferior left greater than right maxillary sinuses. IMPRESSION: No CT evidence of retrocochlear pathology. Normal temporal bones. I have reviewed all films of this examination and edited the above Resident dictation This document was electronically signed by AVEL CARVER MD on 05/16/2011 17:24:00 Nicholas Delgado MD IMG CT ORDERABLES Final Result * (ABNORMAL) POCT INR (05/16/2011 12:04 PM EDT) INR (POC) Conversion 2.8(H) <1.3 INR SUNQUEST Comment:[facility] 05/16/2011 12:0 4 PM EDT 05/16/2011 1:12 PM EDT Gurvinder Dominguez MD POCT ORDERABLES - RUBINA CE Final Result RIGOBERTO documented in this encounter Visit Diagnoses Not on filedocumented in this encounter Care Teams Cook Larder Relationship Specialty Start Date End Date Gurvinder Dominguez MD [address] [place] [address] PCP - General 09/27/14 07/03/15 Ric Hidalgo MD [address] [place] [address] PCP - General Internal Medicine 07/04/15 02/11/18 Grayson Meza [address] [place] [address] PCP - General 02/12/18 Grayson Meza [address] [place] [address] PCP - Insurance Assigned PCP 07/24/22 documented as of this encounter
--- OUTSIDE RECORDS SUMMARY | 2025-11-16 17:45 | XMS_ITS | Encounter Summary ---
Author Organization [facility] Address [address] [place] [address] Care Team Providers Care Core Composer Feeder Name Role Phone Gurvinder Dominguez MD Primary Care Provider Ric Hidalgo MD Primary Care Provider [phone] Grayson Meza Primary Care Provider [phone] Grayson Meza Unavailable [phone] Encounter Details Date Type Department Care Team (Late st Contact Info) Description 04/27/2011 Clinical Conversion Encounter [facility] Division of otolaryngology - [facility] Otolaryngology [address] [place] [address] Nicholas Delgado MD [address] [place] [address] Social History Tobacco Use Types Packs/Day Years Used Date Smoking Tobacco: Never Assessed Sex and Gender Information Value Date Recorded Sex Assigned at Male 10/31/2018 1:31 PM EST Legal Sex Male 6:42 AM EST Gender Identity Male 10/31/2018 1:31 PM EST Sexual Orientation Not on file documented as of this encounter Progress Notes * Nicholas Delgado MD - 12/10/2014 12:18 PM EST [id number] SOLIS [place], [place]. History of Present Illness Mr. Solis is a 66-year-old gentleman who comes in with a referral from Dr. Dominguez for evaluation of postauricular lesion. Patient states that about 3 weeks ago, he developed a bump behind his right ear. It was not painful although he could feel the pressure. There was no drainage from it. This has happened a couple times in the past. The lesion has decreased in size significantly since then. Patient states that is last audiogram was about 10 years ago and she recalls having some degree of asymmetry although he is not certain. There was some level high-frequency loss as he recalls. Past Medical History Coronary artery disease, atrial fibrillation Surgical History 3 vessel CABG Family History Noncontributory Social History Being A Social Drinker Former Smoker V15.82 He is a former smoker and he drinks alcohol socially Current Meds Aldara 5 % External Cream; apply once packet per side of face once weekly overnight; Therapy: 17Jan2010 to (Evaluate:44Drn3612); Last Rx:17Jan2010 Aspirin 81 MG Oral Tablet; Therapy: (Recorded:27Apr2011) to Calcium TABS; Therapy: (Recorded:27Apr2011) to Carvedilol 25 MG Oral Tablet; take 2 tablets by mouth twice daily; Therapy: 73Pzf3085 to (Last Rx:01Scd4586) Digoxin 0.25 MG Oral Tablet; TAKE 1 TABLET DAILY; Therapy: 21Rri4703 to (Last Rx:72Klf2363) Lipitor 80 MG Oral Tablet; TAKE 1 TABLET DAILY; Therapy: 11Oct2010 to (Evaluate:23Huk9800); Last Rx:11Oct2010 Lisinopril 5 MG Oral Tablet; TAKE 1 TAB(S) ORALLY ONCE A DAY; Therapy: 83Fzu2739 to Warfarin Sodium 5 MG Oral Tablet; take 1-2 tablets daily as directed by the Anticoagulation Clinic; Therapy: 21Nov2010 to (Last Rx:21Nov2010) Allergies Cardizem TABS Review of Systems Negative other than items mentioned above Vitals Amber Vitals Data Includes: Current Encounter 27Apr2011 03:01PM Pain Score 0 MD Notified No Allergy Status Reviewed Yes Safe at Home Yes Results/Data Patient underwent an audiogram today that shows normal hearing on the right but high-frequency loss on the left that is normal to moderate. SRT is 5 bilateral and were recognition scores are 100% bilaterally. There is 30 dB asymmetry between left and right at the 8000 Hz Physical Exam The patient is a well-developed well-nourished gentleman appearing his stated age. He is in no acute distress. Examination of his head is unremarkable with normocephalic atraumatic appearance. There is no tenderness over his paranasal sinuses. Extraocular motion is intact. Examination of his ears is unremarkable with patent EACs and intact tympanic membranes. There is no evidence of infection or effusions. Postauricularly on the right, there is a small raised lesion at the level of his ear lobe. It appears to be a sebaceous cyst. It is mildly indurated but nothing is draining. Anterior rhinoscopy shows midline septum and no evidence of polyps or purulence on either side. Oral cavity /oropharyngeal exam is unremarkable with no concerning mucosal lesions. Neck is supple without masses or thyroid masses and there is no cervical lymphadenopathy. He shows good respiratory effort without concerning breath sounds. Assessment Sebaceous cyst, right postauricular Asymmetric sensorineural hearing loss Plan 1. Amoxicillin-Pot Clavulanate 875-125 MG Oral Tablet; TAKE 1 TABLET EVERY 12 HOURS UNTIL GONE; Therapy: 27Apr2011 to (Evaluate:11May2011); Last Rx:27Apr2011 It appears that it was a sebaceous cyst that was much larger in size 3 weeks ago that has since involuted slightly. It appears to have the appearance of mild chronic infection. I would like to treat this with Augmentin for 2 weeks. While this could easily be removed in the office under local anesthesia, his current use of Coumadin makes it difficult to do it in the office. Also, patient is uninterested in the procedure as this only happened 3 times in the last decade or so. He will try the antibiotics first. As for his asymmetric sensorineural hearing loss, I spoke to him about the potential retrocochlear process. He is unable to get an MRI because of cardiac device. I have ordered a CT of temporal bone with contrast to rule out acoustic neuroma. I will see him back in 3 weeks to discuss the result of the scan. Signatures Electronically signed by : NICHOLAS DELGADO MD; Apr 27 2011 4:34PM Electronically signed by : NICHOLAS DELGADO MD; May 10 2014 1:16PM documented in this encounter Plan of Treatment Upcoming Encounters Date Type Department Care Team (Latest Contact Info) Description 03/11/2026 1:15 PM EDT Office Visit [facility] Division of Dermatology [facility] [address] [facility], [address] [place] [address] Bernice Mark NP [address] [place] [address] In Person with Nurse Practitioner documented as of this encounter Procedures Procedure Name Priority Date/Time Associated Diagnosis Comments GFR ESTIMATE (GFRE) Routine 04/27/2011 3 :39 PM EDT CREATININE, BLOOD Routine 04/27/2011 3:3 9 PM EDT documented in this encounter Results * GFR Estimate (GFRE) (04/27/2011 3:39 PM EDT) [facility] Creat for GFR 0.8 0.6 - 1.3 MG/DL SUNQUEST Comment:[facility]; SYED Pat GFR -Amer >60 >60 ML/MIN SUNQUEST Comment:[facility]; SYED Pat GFR Non -Amer >60 >60 ML/MIN SUNQUEST Comment:[facility]; SYED Pat GFR Estimate Comment INTERPRETATION SUNQUEST Comment: Chronic Kidney Disease(CKD) Stages based on estimated GFR: GFR ml/min/1.73m^2 Stage of CKD 30-59 3 15-29 4 <15(or dialysis) 5 The GFR estimate is not accurate for: a) Acute renal failure. b) Obtaining exact estimate for GFR at levels >= 60 ml/minute. c) Dosage calculations for Pharmacy drugs. [facility]; SYED Pat 04/27/2011 3:39 PM EDT 04/27/2011 3:40 PM EDT us Nicholas Delgado MD LAB BLOOD ORDERABLES Final Resul t SUNQUEST * Creatinine, Blood (04/27/2011 3:39 PM EDT) Creatinine 0.8 0.6 - 1.3 MG/DL SUNQUEST Comment:[facility] oratory; SYED Pat 04/27/2011 3:39 PM EDT 04/27/2011 3:40 PM EDT us Nicholas Delgado MD LAB BLOOD ORDERABLES Final Resul t SUNQUEST documented in this encounter Visit Diagnoses Not on filedocumented in this encounter Care Teams Core Composer Feeder Relationship Specialty Start Date End Date Gurvinder Dominguez MD [address] [place] [address] PCP - General 09/27/14 07/03/15 Ric Hidalgo MD [address] [place] [address] PCP - General Internal Medicine 07/04/15 02/11/18 Grayson Meza [address] [place] [address] PCP - General 02/12/18 Grayson Meza [address] [place] [address] PCP - Insurance Assigned PCP 07/24/22 documented as of this encounter
--- OUTSIDE RECORDS SUMMARY | 2025-11-16 17:45 | XMS_ITS | Encounter Summary ---
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 Encounter Department of Cardiology - Anticoagulation [address] [facility] [place] [address] Rochelle Ricks [address] [place] [address] Social History Tobacco Use Types Packs/Day Years Used Date Smoking Tobacco: Never Assessed Sex and Gender Information Value Date Recorded Sex Assigned at Male 10/31/2018 1:31 PM EST Legal Sex Male 6:42 AM EST Gender Identity Male 10/31/2018 1:31 PM EST Sexual Orientation Not on file documented as of this encounter Progress Notes * Rochelle Ramos RN - 04/01/2015 9:06 AM EDT Anticoagulation Progress Report April 01, 2015 Name: Nick Solis Reason for Treatment: Atrial fibrillation INR Range: 2.0-3.0 Date: 2015-04-01 09:06 Location: [facility] INR: 2.30 Tablet Strength: 5 mg Next INR: 28 days 2015-04-29 Update Note: INR 03/31 [facility];fax Dosage Out: :Leon-5mg:M-7.5mg:T-5mg:W-5mg:Th-5mg:F-5mg:Sa-5mg: ASSESSMENT:Richard Rose Marty CLINICIAN:,, documented in this encounter Plan of Treatment Upcoming Encounters Date Type Department Care Team (Latest Contact Info) Description 03/11/2026 1:15 PM EDT Office Visit [facility] Division of Dermatology [facility] Dermatology [address] [facility], [address] [place] [address] Bernice Mark, VERONICA [address] [place] [address] In Person with Nurse Practitioner documented as of this encounter Visit Diagnoses Not on filedocumented in this encounter Care Teams Inspector Government Property Relationship Specialty Start Date End Date Gurvinder Dominguez MD [address] [place] [address] PCP - General 09/27/14 07/03/15 Ric Hidalgo MD [address] [place] [address] PCP - General Internal Medicine 07/04/15 02/11/18 Grayson Meza [address] [place] [address] PCP - General 02/12/18 Grayson Meza [address] [place] [address] PCP - Insurance Assigned PCP 07/24/22 documented as of this encounter
--- OUTSIDE RECORDS SUMMARY | 2025-11-16 17:45 | XMS_ITS | Encounter Summary ---
Author Organization [facility] Address [address] [place] [address] Care Team Providers Care Toddler Teacher Name Role Phone Gurvinder Dominguez MD Primary Care Provider Ric Hidalgo MD Primary Care Provider [phone] Grayson Meza Primary Care Provider [phone] Grayson Meza Unavailable [phone] Encounter Details Date Type Department Care Team (Late st Contact Info) Description 11/07/2010 Clinical Conversion Encounter Department of Ophthalmology [facility] Ophthalmology [address] [place] [address] Lei Schultz, BERNABE [address] [place] [address] Social History Tobacco Use Types Packs/Day Years Used Date Smoking Tobacco: Never Assessed Sex and Gender Information Value Date Recorded Sex Assigned at Male 10/31/2018 1:31 PM EST Legal Sex Male 6:42 AM EST Gender Identity Male 10/31/2018 1:31 PM EST Sexual Orientation Not on file documented as of this encounter Progress Notes * Lei Schultz OD - 12/09/2014 1:30 PM EST [id number] MIRANDA REVISED [facility] [place] [place]. THIS OPHTHALMOLOGY NOTE IS VIEWABLE IN [facility] documented in this encounter Plan of Treatment Upcoming Encounters Date Type Department Care Team (Latest Contact Info) Description 03/11/2026 1:15 PM EDT Office Visit [facility] Division of Dermatology [facility] [address] [facility], [address] [place] [address] Bernice Mark, VERONICA [address] [place] [address] In Person with Nurse Practitioner documented as of this encounter Visit Diagnoses Not on filedocumented in this encounter Care Teams Toddler Teacher Relationship Specialty Start Date End Date Gurvinder Dominguez MD [address] [place] [address] PCP - General 09/27/14 07/03/15 Ric Hidalgo MD [address] [place] [address] PCP - General Internal Medicine 07/04/15 02/11/18 Grayson Meza [address] [place] [address] PCP - General 02/12/18 Grayson Meza [address] [place] [address] PCP - Insurance Assigned PCP 07/24/22 documented as of this encounter
--- OUTSIDE RECORDS SUMMARY | 2025-11-16 17:45 | XMS_ITS | Encounter Summary ---
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 Encounter Department of Cardiology - Anticoagulation [address] [facility] [place] [address] Rochelle Ricks [address] [place] [address] Social History Tobacco Use Types Packs/Day Years Used Date Smoking Tobacco: Never Assessed Sex and Gender Information Value Date Recorded Sex Assigned at Male 10/31/2018 1:31 PM EST Legal Sex Male 6:42 AM EST Gender Identity Male 10/31/2018 1:31 PM EST Sexual Orientation Not on file documented as of this encounter Progress Notes * Rochelle Ramos RN - 05/05/2015 8:16 AM EDT Anticoagulation Progress Report May 05, 2015 Name: Nick Solis Reason for Treatment: Atrial fibrillation INR Range: 2.0-3.0 Date: 2015-05-05 08:16 Location: [facility] INR: 2.60 Tablet Strength: 5 mg Next INR: 27 days 2015-06-01 Update Note: INR 05/04 [facility];fax Dosage Out: :Leon-5mg:M-7.5mg:T-5mg:W-5mg:Th-5mg:F-5mg:Sa-5mg: ASSESSMENT:Richard Rose Marty CLINICIAN:,, documented in this encounter Plan of Treatment Upcoming Encounters Date Type Department Care Team (Latest Contact Info) Description 03/11/2026 1:15 PM EDT Office Visit [facility] Division of Dermatology [facility] Dermatology [address] [facility], [address] [place] [address] Bernice Mark, VERONICA [address] [place] [address] In Person with Nurse Practitioner documented as of this encounter Visit Diagnoses Not on filedocumented in this encounter Care Teams Lumber Salvager Relationship Specialty Start Date End Date Gurvinder Dominguez MD [address] [place] [address] PCP - General 09/27/14 07/03/15 Ric Hidalgo MD [address] [place] [address] PCP - General Internal Medicine 07/04/15 02/11/18 Grayson Meza [address] [place] [address] PCP - General 02/12/18 Grayson Meza [address] [place] [address] PCP - Insurance Assigned PCP 07/24/22 documented as of this encounter
--- OUTSIDE RECORDS SUMMARY | 2025-11-16 17:45 | XMS_ITS | Encounter Summary ---
Author Organization [facility] Address [address] [place] [id number] Care Team Providers Care Acct Exec Name Role Phone Gurvinder Dominguez MD Primary Care Provider Ric Hidalgo MD Primary Care Provider [phone] Grayson Meza Primary Care Provider [phone] Grayson Meza Unavailable [phone] Encounter Details Date Type Department Care Team (Late st Contact Info) Description 10/26/2014 Clinical Conversion Encounter GENERAL CONVERSION Shirley Chaudhari, RN Social History Tobacco Use Types Packs/Day Years Used Date Smoking Tobacco: Never Assessed Sex and Gender Information Value Date Recorded Sex Assigned at Male 10/31/2018 1:31 PM EST Legal Sex Male 6:42 AM EST Gender Identity Male 10/31/2018 1:31 PM EST Sexual Orientation Not on file documented as of this encounter Progress Notes * Shirley Chaudhari RN - 01/14/2015 1:00 PM EST [id number],MICHAEL [facility] [place] [place]. Anticoagulation Progress Report October 26, 2014 Name: Irma Frank Reason for Treatment: Atrial fibrillation INR Range: 2.0-3.0 Date: 2014-10-26 08:41 Location: [facility] INR: 2.00 Tablet Strength: 5 mg Next INR: 55 days 2014-12-20 Update Note: INR 10/25 [facility] Progress Note: 10/26 Letter sent, Next Inr 12/20 Dosage Out: :Leon-5mg:M-7.5mg:T-5mg:W-5mg:Th-5mg:F-5mg:Sa-5mg: ASSESSMENT:[id number] Marcia E CLINICIAN:Watson Sawyer Diane documented in this encounter Plan of Treatment Upcoming Encounters Date Type Department Care Team (Latest Contact Info) Description 03/11/2026 1:15 PM EDT Office Visit [facility] Division of Dermatology [facility] [address], [address] [place] [address] Bernice Mark, VERONICA [address] [place] [address] In Person with Nurse Practitioner documented as of this encounter Visit Diagnoses Not on filedocumented in this encounter Care Teams Acct Exec Relationship Specialty Start Date End Date Gurvinder Dominguez MD [address] [place] [address] PCP - General 09/27/14 07/03/15 Ric Hidalgo MD [address] [place] [address] PCP - General Internal Medicine 07/04/15 02/11/18 Grayson Meza [phone] [place] [id number] PCP - General 02/12/18 Grayson Meza [address] [place] [id number] PCP - Insurance Assigned PCP 07/24/22 documented as of this encounter
== END 2025-11-16 14:32 | disposition home or self-care (01) ==
LOC: HO.ACS 13:55
PROVIDERS: PCP Family Medicine; Visit Provider Internal Medicine Medical Oncology
DX: Z79.01 Long term (current) use of anticoagulants (principal)

== ENCOUNTER → 2025-11-16 13:55 | Outpatient (BNVA) | payer MEDICARE, SELFPAY | PROVIDERS: PCP Family Medicine; Visit Provider Internal Medicine Medical Oncology | DX: I48.0 Paroxysmal atrial fibrillation (principal); Z51.81 Encounter for therapeutic drug level monitoring; Z79.01 Long term (current) use of anticoagulants | CPT/HCPCS: 85610; 99211 ==